=== PATIENT | male | born 1940 | race Two or more races ===

== ENCOUNTER 2017-04-09 10:30 | Day surgery (SDC) | payer MEDICARE ==
[~2017-04-09 10:30] MED LIST: ALBU90OI INH; ATEN25 PO; Atrovent Inha12.9 GM INH; CLOBETTC TP; CODACE30; CODACE60; COMBIVENT RESPIM4 GM; CREON DR 12,001 EACH PO; DESO.25TO TOP; DHE PO; DHE SQ; DICMIS75EC; DICMIS75EC PO; DIHYDROERGOTAMINE; DIPASPER; DONE10 PO; DONE5 PO; DOXE150; DOXE150 PO; DOXE50 PO; Doxepin HCl100 MG PO; FENO145 PO; FENO160 PO; FLUO20 PO; FURO40 PO; GABA300 PO; HYDACE10 PO; HYDACE10B PO; HYDACE5325 PO; LANS30EC PO; LEVFLO500 PO; LOPE2C PO; Loperamide2 MG PO; MAGOXI400; METO2.5 PO; MICRO-K PO; MIRAPEX ER1.5 MG PO; MODA200 PO; MULVITMINF PO; Mirapex0.75 MG PO; NITR.4SL SL; OLAN7.5 PO; OMEP20ER PO; POTA10T PO; PRAM.5 PO; PROAIR RESPICL90 MCG; PROZAC; Prednisone50 MG PO; Primalev 5-3001 EACH PO; RAPAFLO PO; RXHYD5325 PO; SIMV40; SIMV40 PO; TESTTP; TIZA4 PO; TIZANIDINE HCL4 MG PO; TORSE20 PO; TRAZ150T57 PO; TRICOR; VERAPAMIL; Voltaren100 GM; WARF5 PO; WARF6 PO; WARF7.5 PO; ZANAFLEX; ZOCOR; Zithromax250 MG PO
== END 2017-04-09 22:40 | disposition home or self-care (01) ==
LOC: WOUND 10:30
PROC: 0JBN0ZZ Excision of Right Lower Leg Subcutaneous Tissue and Fascia, Open Approach (ICD-10-PCS; principal; 2017-04-09)
PROC: 0HRKXK3 Replacement of Right Lower Leg Skin with Nonautologous Tissue Substitute, Full Thickness, External Approach (ICD-10-PCS; principal; 2017-04-09)
DX: Z48.00 Encounter for change or removal of nonsurgical wound dressing (principal); E11.622 Type 2 diabetes mellitus with other skin ulcer; L97.912 Non-pressure chronic ulcer of unspecified part of right lower leg with fat layer exposed; I87.2 Venous insufficiency (chronic) (peripheral); I89.0 Lymphedema, not elsewhere classified; G20 Parkinson's disease; J44.9 Chronic obstructive pulmonary disease, unspecified; F31.9 Bipolar disorder, unspecified; G47.33 Obstructive sleep apnea (adult) (pediatric)
CPT/HCPCS: G0463; Q4131

== ENCOUNTER 2017-05-07 10:27 | Day surgery (SDC) | payer MEDICARE | END 2017-05-07 22:47 | disposition home or self-care (01) | LOC: WOUND 10:27 | PROC: 0HBKXZZ Excision of Right Lower Leg Skin, External Approach (ICD-10-PCS; principal; 2017-05-07) | DX: Z48.00 Encounter for change or removal of nonsurgical wound dressing (principal); L97.912 Non-pressure chronic ulcer of unspecified part of right lower leg with fat layer exposed; I87.2 Venous insufficiency (chronic) (peripheral); I89.0 Lymphedema, not elsewhere classified | CPT/HCPCS: G0463 ==

== ENCOUNTER 2017-05-21 10:30 | Day surgery (SDC) | payer MEDICARE | END 2017-05-21 16:53 | disposition home or self-care (01) | LOC: WOUND 10:30 | DX: Z48.00 Encounter for change or removal of nonsurgical wound dressing (principal); L97.912 Non-pressure chronic ulcer of unspecified part of right lower leg with fat layer exposed; I87.2 Venous insufficiency (chronic) (peripheral); I89.0 Lymphedema, not elsewhere classified | CPT/HCPCS: 87081; G0463 ==

== ENCOUNTER 2017-05-28 10:40 | Day surgery (SDC) | payer MEDICARE | END 2017-05-28 12:25 | disposition home or self-care (01) | LOC: WOUND 10:40 | DX: Z48.00 Encounter for change or removal of nonsurgical wound dressing (principal); L97.912 Non-pressure chronic ulcer of unspecified part of right lower leg with fat layer exposed; I87.2 Venous insufficiency (chronic) (peripheral); I89.0 Lymphedema, not elsewhere classified | CPT/HCPCS: G0463 ==

== ENCOUNTER 2017-06-04 10:40 | Day surgery (SDC) | payer MEDICARE | END 2017-06-04 11:44 | disposition home or self-care (01) | LOC: WOUND 10:40 | DX: Z48.00 Encounter for change or removal of nonsurgical wound dressing (principal); L97.912 Non-pressure chronic ulcer of unspecified part of right lower leg with fat layer exposed; I87.2 Venous insufficiency (chronic) (peripheral); I89.0 Lymphedema, not elsewhere classified; G20 Parkinson's disease; Z86.718 Personal history of other venous thrombosis and embolism; F31.9 Bipolar disorder, unspecified | CPT/HCPCS: 36416; 85610; G0463 ==

== ENCOUNTER 2017-06-09 14:51 | Emergency (ER) | payer MEDICARE ==
[~2017-06-09] VITALS: Ht 167.6 cm; Wt 108.9 kg
[2017-06-09] MEDS ORDERED: ALBU3IS INH (15:35)
[2017-06-09] MEDS ORDERED: Prinivil10 MG PO (15:36)
[2017-06-09] MEDS ORDERED: METF500 PO ×2 (15:36→15:53)
[2017-06-09] MEDS ORDERED: SPIR25 PO (15:37)
[2017-06-09] MEDS ORDERED: COLCHICINE0.6 MG PO (15:47)
[2017-06-09] MEDS ORDERED: POTCHL20ER PO (15:47)
[2017-06-09] MEDS ORDERED: ATOR20 PO (15:48)
[2017-06-09] MEDS ORDERED: GABA300T24 (15:48)
[2017-06-09] MEDS ORDERED: PRAM.125 PO (15:48)
[2017-06-09] MEDS ORDERED: DOXE50 PO (15:49)
[2017-06-09] MEDS ORDERED: METO50ER PO (15:49)
[2017-06-09] MEDS ORDERED: FURO80 PO (15:49)
[2017-06-09] MEDS ORDERED: METO2.5 PO (15:53)
[2017-06-09] MEDS ORDERED: Voltaren100 GM TOP (15:54)
[2017-06-09] MEDS ORDERED: OXYC1TAB11 PO (15:54)
[2017-06-09] MEDS ORDERED: VITAMIN C500 M1 PO (15:55)
[2017-06-09] MEDS ORDERED: WARF5 PO (15:55)
[2017-06-09] MEDS ORDERED: Hair, Skin & N1 EACH PO (15:55)
[2017-06-09] MEDS ORDERED: VITAMIN D31000 UNIT PO (15:56)
[2017-06-09 20:56] LABS: Hematocrit 38.2 % (37.0-53.0); Hemoglobin 12.6 g/dL (13.5-17.5); Mean Corpuscular HGB 30.1 pg (26.0-34.0); Mean Corpuscular Volume 91 fL (80-100); Mean Platelet Volume 10.5 fL (9.1-12.4); Platelet Count 256 K/mm3 (150-400); RDW Coefficient Variation 14.3 % (11.7-14.2); RDW Standard Deviation 48.1 fL (35.1-46.3); Red Blood Cell Count 4.19 M/mm3 (4.30-5.90); White Blood Cell Count 7.51 K/mm3 (4.00-11.30)
[2017-06-09 21:08] LABS: International Normalized Ratio 1.72; Prothrombin Time Results 18.2 Sec (9.7-11.5)
[2017-06-09 21:10] LABS: Bun/Creatinine Ratio 27.1 (12.0-20.0); Calcium, Blood 8.6 mg/dL (8.5-10.1); Creatinine, Blood 1.7 mg/dL (0.60-1.20); Potassium, Blood 4.5 mmol/L (3.5-5.5)
== END 2017-06-09 21:20 | disposition short-term general hospital (02) ==
LOC: ER 14:51
PROVIDERS: Emergency Medicine
DX: G83.4 Cauda equina syndrome (principal); M48.07 Spinal stenosis, lumbosacral region; I10 Essential (primary) hypertension; F32.9 Major depressive disorder, single episode, unspecified; E78.5 Hyperlipidemia, unspecified; Z86.711 Personal history of pulmonary embolism; Z86.718 Personal history of other venous thrombosis and embolism; Z86.73 Personal history of transient ischemic attack (TIA), and cerebral infarction without residual deficits; Z87.891 Personal history of nicotine dependence
CPT/HCPCS: 72148; 80048; 85027; 85610; 96374; 96375; 96376; 99285; J1100; J1170; J2405; J3430

== ENCOUNTER 2017-06-25 12:33 | Emergency (ER) | payer MEDICARE ==
[~2017-06-25] VITALS: Ht 167.6 cm; Wt 111.1 kg
[~2017-06-25 12:33] MED LIST changes: +ALBU3IS INH; +ATOR20 PO; +COLCHICINE0.6 MG PO; +FURO80 PO; +GABA300T24; +Hair, Skin & N1 EACH PO; +METF500 PO; +METO50ER PO; +OXYC1TAB11 PO; +POTCHL20ER PO; +PRAM.125 PO; +Prinivil10 MG PO; +SPIR25 PO; +VITAMIN C500 M1 PO; +VITAMIN D31000 UNIT PO; +Voltaren100 GM TOP
[2017-06-25 15:19] LABS: BASOPHILS ABSOLUTE AUTO 0.04 K/mm3 (0.00-0.23); BASOPHILS PERCENT AUTO 1 % (0-2); EOSINOPHILS ABSOLUTE AUTO 0.55 K/mm3 (0.00-0.68); EOSINOPHILS PERCENT AUTO 7 % (0-6); Hematocrit 34.5 % (37.0-53.0); Hemoglobin 11.3 g/dL (13.5-17.5); IMMATURE GRAN ABSOLUTE AUTO 0.06 K/mm3 (0.00-0.10); IMMATURE GRAN PERCENT AUTO 1 % (0-1); LYMPHOCYTES ABSOLUTE AUTO 1.63 K/mm3 (0.84-5.20); LYMPHOCYTES PERCENT AUTO 19 % (21-46); MONOCYTES ABSOLUTE AUTO 0.65 K/mm3 (0.16-1.47); MONOCYTES PERCENT AUTO 8 % (4-13); Mean Corpuscular HGB 29.7 pg (26.0-34.0); Mean Corpuscular HGB Conc 32.8 g/dL (31.5-36.5); Mean Corpuscular Volume 91 fL (80-100); NEUTROPHILS ABSOLUTE AUTO 5.52 K/mm3 (1.96-9.15); NEUTROPHILS PERCENT AUTO 65 % (41-73); Platelet Count 265 K/mm3 (150-400); RDW Coefficient Variation 14.3 % (11.7-14.2); RDW Standard Deviation 47.5 fL (35.1-46.3); Red Blood Cell Count 3.81 M/mm3 (4.30-5.90); White Blood Cell Count 8.45 K/mm3 (4.00-11.30)
[2017-06-25 15:40] LABS: Albumin, Blood 3.7 g/dL (3.4-5.0); Albumin/Globulin Ratio 0.8 (0.8-1.8); Bilirubin, Total 0.5 mg/dL (0.1-1.0); Bun/Creatinine Ratio 25.1 (12.0-20.0); Calcium, Blood 8.7 mg/dL (8.5-10.1); Creatinine, Blood 1.71 mg/dL (0.60-1.20); Globulin, Blood 4.4 g/dL (2.2-4.0); Potassium, Blood 4.2 mmol/L (3.5-5.5); Total Protein, Blood 8.1 g/dL (6.4-8.2)
[2017-06-25] MEDS ORDERED: METPRE4DP PO (17:06)
[2017-06-25] MEDS ORDERED: Robaxin500 MG PO (17:06)
== END 2017-06-25 17:30 | disposition home or self-care (01) ==
LOC: ER 12:33
PROVIDERS: Physician Assistant
DX: G89.18 Other acute postprocedural pain (principal); M54.5 Low back pain; Z88.8 Allergy status to other drugs, medicaments and biological substances; Z88.0 Allergy status to penicillin; Z79.899 Other long term (current) drug therapy; Z79.84 Long term (current) use of oral hypoglycemic drugs; Z79.01 Long term (current) use of anticoagulants; F32.9 Major depressive disorder, single episode, unspecified; G20 Parkinson's disease; F31.9 Bipolar disorder, unspecified; E78.5 Hyperlipidemia, unspecified; Z86.73 Personal history of transient ischemic attack (TIA), and cerebral infarction without residual deficits; G43.909 Migraine, unspecified, not intractable, without status migrainosus
CPT/HCPCS: 36415; 72148; 80053; 85025; 96374; 96375; 99284; J1170; J2405

== ENCOUNTER → 2017-07-27 | Outpatient (CLI) | payer MEDICARE ==
[~2017-07-27] MED LIST changes: +ELIQUIS2.5 MG PO; +FAMO20 PO; +Ipratr-Albuterol3 ML INH; +METPRE4DP PO; +Omeprazole20 M1; +PRED10 PO; +PRED5 PO; +Robaxin500 MG PO; +[UNRECOGNIZED DRUG - OTHER] PO
[2017-07-28 21:58] LABS: Adenovirus F 40/41 Not Detected (NOT DETECT); Astrovirus Not Detected (NOT DETECT); Campylobacter Sp Not Detected (NOT DETECT); Cryptosporidium Not Detected (NOT DETECT); Cyclospora Cayetanensis Not Detected (NOT DETECT); E. Coli O157 Not Detected (NOT DETECT); Entamoeba Histolytica Not Detected (NOT DETECT); Enteroaggregative E. coli-EAEC Not Detected (NOT DETECT); Enteropathogenic E. coli-EPEC Not Detected (NOT DETECT); Enterotoxigenic E. coli-ETEC Not Detected (NOT DETECT); Giardia Lamblia Not Detected (NOT DETECT); Norovirus GI/GII Not Detected (NOT DETECT); Plesiomonas Shigelloides Not Detected (NOT DETECT); Rotavirus A Not Detected (NOT DETECT); Salmonella Sp Not Detected (NOT DETECT); Sapovirus Not Detected (NOT DETECT); Shiga Toxin-prod E. coli-STEC Not Detected (NOT DETECT); Shigella/Enteroin E. coli-EIEC Not Detected (NOT DETECT); Vibrio Cholerae Not Detected (NOT DETECT); Vibrio Sp Not Detected (NOT DETECT); Yersinia Enterocolitica Not Detected (NOT DETECT)
== END ==
LOC: LAB EV 23:15
PROVIDERS: Family Medicine
DX: R19.7 Diarrhea, unspecified (principal)
CPT/HCPCS: 87507

== ENCOUNTER 2017-08-26 20:44 | Emergency (ER) | payer MEDICARE ==
[~2017-08-26] VITALS: Ht 170.2 cm; Wt 108.9 kg
[~2017-08-26 20:44] MED LIST changes: -ELIQUIS2.5 MG PO; -FAMO20 PO; -Ipratr-Albuterol3 ML INH; -Omeprazole20 M1; -PRED10 PO; -PRED5 PO; -[UNRECOGNIZED DRUG - OTHER] PO
[2017-08-26] MEDS ORDERED: [UNRECOGNIZED DRUG - OTHER] PO (20:58)
[2017-08-26] MEDS ORDERED: METPRE4DP PO (21:05)
== END 2017-08-26 21:25 | disposition home or self-care (01) ==
LOC: ER 20:44
DX: M10.9 Gout, unspecified (principal); Z88.0 Allergy status to penicillin; Z88.8 Allergy status to other drugs, medicaments and biological substances; Z79.899 Other long term (current) drug therapy; Z79.84 Long term (current) use of oral hypoglycemic drugs; Z79.891 Long term (current) use of opiate analgesic; Z79.01 Long term (current) use of anticoagulants; Z86.73 Personal history of transient ischemic attack (TIA), and cerebral infarction without residual deficits; F32.9 Major depressive disorder, single episode, unspecified; F31.9 Bipolar disorder, unspecified; E78.5 Hyperlipidemia, unspecified; G20 Parkinson's disease
CPT/HCPCS: 96372; 99283; J1170

== ENCOUNTER 2017-09-17 13:25 | Emergency (ER) | payer MEDICARE ==
[~2017-09-17] VITALS: Ht 167.6 cm; Wt 104.3 kg
[~2017-09-17 13:25] MED LIST changes: +[UNRECOGNIZED DRUG - OTHER] PO
[2017-09-17] MEDS ORDERED: ELIQUIS2.5 MG PO (14:39)
[2017-09-17] MEDS ORDERED: PRED5 PO (14:40)
[2017-09-17] MEDS ORDERED: POTCHL20ER PO (14:40)
[2017-09-17] MEDS ORDERED: Omeprazole20 M1 (14:41)
[2017-09-17 14:53] LABS: BASOPHILS ABSOLUTE AUTO 0.03 K/mm3 (0.00-0.23); BASOPHILS PERCENT AUTO 0 % (0-2); EOSINOPHILS ABSOLUTE AUTO 0.22 K/mm3 (0.00-0.68); EOSINOPHILS PERCENT AUTO 3 % (0-6); Hemoglobin 11.1 g/dL (13.5-17.5); IMMATURE GRAN ABSOLUTE AUTO 0.02 K/mm3 (0.00-0.10); IMMATURE GRAN PERCENT AUTO 0 % (0-1); LYMPHOCYTES ABSOLUTE AUTO 1.54 K/mm3 (0.84-5.20); LYMPHOCYTES PERCENT AUTO 20 % (21-46); MONOCYTES ABSOLUTE AUTO 0.67 K/mm3 (0.16-1.47); MONOCYTES PERCENT AUTO 9 % (4-13); Mean Corpuscular HGB 29.1 pg (26.0-34.0); Mean Corpuscular HGB Conc 31.7 g/dL (31.5-36.5); Mean Corpuscular Volume 92 fL (80-100); Mean Platelet Volume 10.1 fL (9.1-12.4); NEUTROPHILS ABSOLUTE AUTO 5.22 K/mm3 (1.96-9.15); NEUTROPHILS PERCENT AUTO 68 % (41-73); Platelet Count 266 K/mm3 (150-400); RDW Coefficient Variation 15.6 % (11.7-14.2); RDW Standard Deviation 52.1 fL (35.1-46.3); Red Blood Cell Count 3.81 M/mm3 (4.30-5.90)
[2017-09-17 15:10] LABS: Albumin, Blood 3.3 g/dL (3.4-5.0); Albumin/Globulin Ratio 0.8 (0.8-1.8); Bilirubin, Total 0.3 mg/dL (0.1-1.0); Bun/Creatinine Ratio 25.8 (12.0-20.0); Calcium, Blood 9.5 mg/dL (8.5-10.1); Creatinine, Blood 2.17 mg/dL (0.60-1.20); Globulin, Blood 4.4 g/dL (2.2-4.0); Magnesium, Blood 2.5 mg/dL (1.6-2.4); Phosphorus, Blood 3.1 mg/dL (2.5-4.9); Potassium, Blood 4.6 mmol/L (3.5-5.5); Total Protein, Blood 7.7 g/dL (6.4-8.2)
[2017-09-17 15:17] LABS: Source, Urine Clean Catch
[2017-09-17 15:20] LABS: Appearance, Urine Clear (Clear); Bilirubin, Urine Neg (Neg); Blood, Urine Neg (Neg); Color, Urine Yellow (P-Yellow); Glucose Qualitative, Urine Neg (Neg); Ketones, Urine Neg (Neg); Leukocyte Esterase, Urine Neg (Neg); Nitrite, Urine Neg (Neg); Protein, Urine Neg (Neg); Specific Gravity, Urine 1.005 (1.003-1.022); Urobilinogen, Urine NORM (Normal)
== END 2017-09-17 16:13 | disposition home or self-care (01) ==
LOC: ER 13:25
PROVIDERS: Emergency Medicine
DX: R79.9 Abnormal finding of blood chemistry, unspecified (principal); N28.9 Disorder of kidney and ureter, unspecified; F32.9 Major depressive disorder, single episode, unspecified; E78.5 Hyperlipidemia, unspecified; G43.909 Migraine, unspecified, not intractable, without status migrainosus; I10 Essential (primary) hypertension; Z87.891 Personal history of nicotine dependence
CPT/HCPCS: 36415; 71045; 80053; 81003; 83735; 84100; 85025; 93005; 93010; 99283

== ENCOUNTER 2017-09-30 17:11 | Observation (INO) | payer MEDICARE ==
[~2017-09-30] VITALS: Ht 167.6 cm; Wt 105.8 kg
[~2017-09-30 17:11] MED LIST changes: +ELIQUIS2.5 MG PO; +Omeprazole20 M1; +PRED5 PO
[2017-09-30 17:54] LABS: BASOPHILS ABSOLUTE AUTO 0.03 K/mm3 (0.00-0.23); BASOPHILS PERCENT AUTO 0 % (0-2); EOSINOPHILS ABSOLUTE AUTO 0.02 K/mm3 (0.00-0.68); EOSINOPHILS PERCENT AUTO 0 % (0-6); Hematocrit 31.2 % (37.0-53.0); Hemoglobin 9.9 g/dL (13.5-17.5); IMMATURE GRAN ABSOLUTE AUTO 0.11 K/mm3 (0.00-0.10); IMMATURE GRAN PERCENT AUTO 1 % (0-1); LYMPHOCYTES PERCENT AUTO 13 % (21-46); MONOCYTES ABSOLUTE AUTO 0.98 K/mm3 (0.16-1.47); MONOCYTES PERCENT AUTO 10 % (4-13); Mean Corpuscular HGB 28.3 pg (26.0-34.0); Mean Corpuscular HGB Conc 31.7 g/dL (31.5-36.5); NEUTROPHILS ABSOLUTE AUTO 7.33 K/mm3 (1.96-9.15); NEUTROPHILS PERCENT AUTO 75 % (41-73); Platelet Count 213 K/mm3 (150-400); RDW Coefficient Variation 16.7 % (11.7-14.2); RDW Standard Deviation 54.2 fL (35.1-46.3); White Blood Cell Count 9.77 K/mm3 (4.00-11.30)
[2017-09-30 18:03] LABS: Mean Corpuscular Volume 89 fL (80-100)
[2017-09-30 18:06] LABS: International Normalized Ratio 1.17; Prothrombin Time Results 12.2 Sec (9.7-11.5)
[2017-09-30 18:14] LABS: Alanine Aminotransfer (ALT/SGP 21 U/L (12-78); Albumin, Blood 2.9 g/dL (3.4-5.0); Albumin/Globulin Ratio 0.8 (0.8-1.8); Alk Phos 70 U/L (50-136); Anion Gap 9 mmol/L (6-16); Aspartate Aminotrans (AST/SGOT 20 U/L (12-37); Bilirubin, Total 0.6 mg/dL (0.1-1.0); Blood Urea Nitrogen 22 mg/dL (8-24); CO2, Blood 23 mmol/L (21-32); Calcium, Blood 8.1 mg/dL (8.5-10.1); Chloride, Blood 106 mmol/L (98-108); Globulin, Blood 3.7 g/dL (2.2-4.0); Glomerular Filtration Rate >60 (60-); Glucose, Blood 132 mg/dL (70-99); Potassium, Blood 3.8 mmol/L (3.5-5.5); Sodium, Blood 138 mmol/L (136-145); Total Protein, Blood 6.6 g/dL (6.4-8.2); Troponin I 0.019 ng/mL (0.000-0.040)
[2017-09-30 20:29] LABS: Source, Urine Catheter
[2017-09-30 20:32] LABS: Appearance, Urine Clear (Clear); Bilirubin, Urine Neg (Neg); Blood, Urine 1+ (Neg); Color, Urine Yellow (P-Yellow); Glucose Qualitative, Urine 2+ (Neg); Ketones, Urine Neg (Neg); Leukocyte Esterase, Urine 1+ (Neg); Nitrite, Urine Neg (Neg); Protein, Urine 2+ (Neg); Specific Gravity, Urine 1.015 (1.003-1.022); Urobilinogen, Urine NORM (Normal)
[2017-09-30 20:43] LABS: Bacteria Mod /hpf; Red Blood Cells, Urine 0-2 /hpf (0-2); Squamous Epithelial Cells Few /hpf (Few)
[2017-10-01 00:13] LABS: CPK Creatine Kinase 451 U/L (39-308)
[2017-10-01 00:31] LABS: Creatine Kinase MB 6.1 ng/mL (0.0-3.6); Creatine Kinase MB Index 1.4 (0.0-4.0)
[2017-10-01 01:00] LABS: BASOPHILS ABSOLUTE AUTO 0.01 K/mm3 (0.00-0.23); BASOPHILS PERCENT AUTO 0 % (0-2); EOSINOPHILS ABSOLUTE AUTO 0.01 K/mm3 (0.00-0.68); EOSINOPHILS PERCENT AUTO 0 % (0-6); Hematocrit 29.5 % (37.0-53.0); Hemoglobin 9.4 g/dL (13.5-17.5); IMMATURE GRAN ABSOLUTE AUTO 0.06 K/mm3 (0.00-0.10); IMMATURE GRAN PERCENT AUTO 1 % (0-1); LYMPHOCYTES ABSOLUTE AUTO 1.23 K/mm3 (0.84-5.20); LYMPHOCYTES PERCENT AUTO 13 % (21-46); MONOCYTES PERCENT AUTO 9 % (4-13); Mean Corpuscular HGB 28.4 pg (26.0-34.0); Mean Corpuscular HGB Conc 31.9 g/dL (31.5-36.5); Mean Corpuscular Volume 89 fL (80-100); Mean Platelet Volume 9.8 fL (9.1-12.4); NEUTROPHILS PERCENT AUTO 77 % (41-73); Platelet Count 193 K/mm3 (150-400); RDW Coefficient Variation 16.5 % (11.7-14.2); RDW Standard Deviation 54.2 fL (35.1-46.3); Red Blood Cell Count 3.31 M/mm3 (4.30-5.90); White Blood Cell Count 9.71 K/mm3 (4.00-11.30)
[2017-10-01 01:11] LABS: Alanine Aminotransfer (ALT/SGP 18 U/L (12-78); Albumin, Blood 2.5 g/dL (3.4-5.0); Albumin/Globulin Ratio 0.7 (0.8-1.8); Alk Phos 60 U/L (50-136); Anion Gap 13 mmol/L (6-16); Aspartate Aminotrans (AST/SGOT 24 U/L (12-37); Bilirubin, Total 0.6 mg/dL (0.1-1.0); Blood Urea Nitrogen 15 mg/dL (8-24); Bun/Creatinine Ratio 17.9 (12.0-20.0); CO2, Blood 19 mmol/L (21-32); Calcium, Blood 7.9 mg/dL (8.5-10.1); Chloride, Blood 107 mmol/L (98-108); Creatinine, Blood 0.84 mg/dL (0.60-1.20); Globulin, Blood 3.6 g/dL (2.2-4.0); Glomerular Filtration Rate >60 (60-); Glucose, Blood 98 mg/dL (70-99); Potassium, Blood 3.6 mmol/L (3.5-5.5); Sodium, Blood 139 mmol/L (136-145); Total Protein, Blood 6.1 g/dL (6.4-8.2)
[2017-10-01] MEDS ORDERED: PRED10 PO (01:12)
[2017-10-01] MEDS ORDERED: FAMO20 PO (01:13)
[2017-10-01] MEDS ORDERED: ALBU90OI INH (01:14)
[2017-10-01] MEDS ORDERED: Ipratr-Albuterol3 ML INH (01:15)
[2017-10-01] MEDS ORDERED: [UNRECOGNIZED DRUG - OTHER] PO (01:17)
[2017-10-01] MEDS ORDERED: ATOR20 PO (01:18)
[2017-10-01] MEDS ORDERED: ELIQUIS2.5 MG PO (02:48)
[2017-10-01] MEDS ORDERED: GABA300 PO (05:09)
[2017-10-01 15:59] LABS: Influenza A Negative (NEGATIVE); Influenza B Negative (NEGATIVE)
[2017-10-02 05:06] LABS: BASOPHILS ABSOLUTE AUTO 0.01 K/mm3 (0.00-0.23); BASOPHILS PERCENT AUTO 0 % (0-2); EOSINOPHILS ABSOLUTE AUTO 0.01 K/mm3 (0.00-0.68); EOSINOPHILS PERCENT AUTO 0 % (0-6); Hematocrit 30.2 % (37.0-53.0); Hemoglobin 9.8 g/dL (13.5-17.5); IMMATURE GRAN ABSOLUTE AUTO 0.03 K/mm3 (0.00-0.10); IMMATURE GRAN PERCENT AUTO 1 % (0-1); LYMPHOCYTES ABSOLUTE AUTO 0.64 K/mm3 (0.84-5.20); LYMPHOCYTES PERCENT AUTO 12 % (21-46); MONOCYTES ABSOLUTE AUTO 0.31 K/mm3 (0.16-1.47); MONOCYTES PERCENT AUTO 6 % (4-13); Mean Corpuscular HGB 28.7 pg (26.0-34.0); Mean Corpuscular HGB Conc 32.5 g/dL (31.5-36.5); Mean Corpuscular Volume 88 fL (80-100); NEUTROPHILS ABSOLUTE AUTO 4.56 K/mm3 (1.96-9.15); NEUTROPHILS PERCENT AUTO 82 % (41-73); Platelet Count 166 K/mm3 (150-400); RDW Coefficient Variation 16.6 % (11.7-14.2); RDW Standard Deviation 53.6 fL (35.1-46.3); Red Blood Cell Count 3.42 M/mm3 (4.30-5.90); White Blood Cell Count 5.56 K/mm3 (4.00-11.30)
== END 2017-10-03 12:32 | disposition home or self-care (01) ==
LOC: ER 17:11 → MEDS 17:12 → ER 22:08 → MEDS 22:35
PROVIDERS: Emergency Medicine; Internal Medicine; Student in an Organized Health Care Education/Training Program
DX: T67.5XXA Heat exhaustion, unspecified, initial encounter (principal); E86.0 Dehydration; E87.6 Hypokalemia; G93.41 Metabolic encephalopathy; F32.9 Major depressive disorder, single episode, unspecified; G20 Parkinson's disease; G43.909 Migraine, unspecified, not intractable, without status migrainosus; E78.5 Hyperlipidemia, unspecified; I87.2 Venous insufficiency (chronic) (peripheral); G47.30 Sleep apnea, unspecified; N40.0 Benign prostatic hyperplasia without lower urinary tract symptoms; I10 Essential (primary) hypertension; M19.90 Unspecified osteoarthritis, unspecified site; Z86.73 Personal history of transient ischemic attack (TIA), and cerebral infarction without residual deficits; Z79.52 Long term (current) use of systemic steroids; Z86.718 Personal history of other venous thrombosis and embolism; Z79.01 Long term (current) use of anticoagulants; Z79.899 Other long term (current) drug therapy; Z79.84 Long term (current) use of oral hypoglycemic drugs; Z88.0 Allergy status to penicillin; Z88.1 Allergy status to other antibiotic agents; Z88.8 Allergy status to other drugs, medicaments and biological substances; X30.XXXA Exposure to excessive natural heat, initial encounter; Y99.0 Civilian activity done for income or pay
CPT/HCPCS: 36415; 71046; 80053; 81001; 82550; 82553; 82947; 83605; 84145; 84484; 85025; 85610; 85730; 87040; 87081; 87086; 87804; 93005; 93010; 94760; 96360; 96361; 96365; 96366; 96375; 97116; 97161; 97530; 99285; G0378; G8978; G8979; G8980; J1956; J2001; J2405; J3480; J7030; J7050

== ENCOUNTER → 2017-10-16 | Outpatient (CLI) | payer MEDICARE ==
[~2017-10-16] MED LIST changes: +FAMO20 PO; +Ipratr-Albuterol3 ML INH; +PRED10 PO
[2017-10-18 12:57] LABS: Stool Occult Bld Immuno 1 Negative (NEGATIVE); Stool Occult Bld Immuno 2 Negative (NEGATIVE); Stool Occult Bld Immuno 3 Negative (NEGATIVE)
== END | disposition home or self-care (01) ==
LOC: LAB SHORT 14:00 → LAB EV 14:00
PROVIDERS: Physician Assistant
DX: D64.9 Anemia, unspecified (principal)
CPT/HCPCS: 82274

== ENCOUNTER → 2017-10-26 | Outpatient (CLI) | payer MEDICARE ==
[2017-10-26 19:03] LABS: Albumin, Blood 3.4 g/dL (3.4-5.0); Anion Gap 6 mmol/L (6-16); Blood Urea Nitrogen 15 mg/dL (8-24); Bun/Creatinine Ratio 16.1 (12.0-20.0); CO2, Blood 31 mmol/L (21-32); Chloride, Blood 107 mmol/L (98-108); Creatinine, Blood 0.93 mg/dL (0.60-1.20); Glomerular Filtration Rate >60 (60-); Glucose, Blood 90 mg/dL (70-99); Phosphorus, Blood 3.6 mg/dL (2.5-4.9); Potassium, Blood 3.7 mmol/L (3.5-5.5); Sodium, Blood 144 mmol/L (136-145); Uric Acid, Blood 8.3 mg/dL (3.5-7.2)
[2017-10-26 20:12] LABS: Percent Saturation 14.5 % (20.0-50.0)
== END ==
LOC: LAB SHORT 18:40 → LAB EV 18:40
PROVIDERS: Internal Medicine Nephrology
DX: N18.2 Chronic kidney disease, stage 2 (mild) (principal); D63.1 Anemia in chronic kidney disease; N25.81 Secondary hyperparathyroidism of renal origin; E55.9 Vitamin D deficiency, unspecified; E78.00 Pure hypercholesterolemia, unspecified; D51.8 Other vitamin B12 deficiency anemias; D52.8 Other folate deficiency anemias; D50.9 Iron deficiency anemia, unspecified
CPT/HCPCS: 36415; 80069; 82607; 82728; 82746; 83540; 83550; 84550; 85018

== ENCOUNTER 2018-05-28 21:27 | Emergency (ER) | payer OTHER ==
[~2018-05-28] VITALS: Ht 170.2 cm; Wt 106.6 kg
[2018-05-28] MEDS ORDERED: OMEPRAZOLE MAGN20 MG PO (21:41)
[2018-05-28] MEDS ORDERED: METO2.5 PO (21:42)
[2018-05-28] MEDS ORDERED: SPIR25 PO (21:42)
[2018-05-28] MEDS ORDERED: ALLO100 PO (21:43)
== END 2018-05-28 23:29 | disposition home or self-care (01) ==
LOC: ER 21:27
DX: S39.012A Strain of muscle, fascia and tendon of lower back, initial encounter (principal); X58.XXXA Exposure to other specified factors, initial encounter; Z88.0 Allergy status to penicillin; Z88.8 Allergy status to other drugs, medicaments and biological substances; Z79.899 Other long term (current) drug therapy; Z79.52 Long term (current) use of systemic steroids; F32.9 Major depressive disorder, single episode, unspecified; G43.909 Migraine, unspecified, not intractable, without status migrainosus; F31.9 Bipolar disorder, unspecified; E78.5 Hyperlipidemia, unspecified
CPT/HCPCS: 72100; 99284-25

== ENCOUNTER → 2018-06-22 | Outpatient (CLI) | payer MEDICARE ==
[~2018-06-22] MED LIST changes: +ALLO100 PO; +OMEPRAZOLE MAGN20 MG PO
[2018-06-22 18:52] LABS: BASOPHILS ABSOLUTE AUTO 0.03 K/mm3 (0.00-0.23); BASOPHILS PERCENT AUTO 1 % (0-2); EOSINOPHILS ABSOLUTE AUTO 0.41 K/mm3 (0.00-0.68); EOSINOPHILS PERCENT AUTO 8 % (0-6); Hematocrit 36.1 % (37.0-53.0); Hemoglobin 12.2 g/dL (13.5-17.5); IMMATURE GRAN ABSOLUTE AUTO 0.01 K/mm3 (0.00-0.10); IMMATURE GRAN PERCENT AUTO 0 % (0-1); LYMPHOCYTES ABSOLUTE AUTO 1.58 K/mm3 (0.84-5.20); LYMPHOCYTES PERCENT AUTO 31 % (21-46); MONOCYTES ABSOLUTE AUTO 0.42 K/mm3 (0.16-1.47); MONOCYTES PERCENT AUTO 8 % (4-13); Mean Corpuscular HGB 30.1 pg (26.0-34.0); Mean Corpuscular HGB Conc 33.8 g/dL (31.5-36.5); Mean Corpuscular Volume 89 fL (80-100); Mean Platelet Volume 9.7 fL (9.1-12.4); NEUTROPHILS ABSOLUTE AUTO 2.59 K/mm3 (1.96-9.15); NEUTROPHILS PERCENT AUTO 52 % (41-73); Platelet Count 183 K/mm3 (150-400); RDW Coefficient Variation 13.5 % (11.7-14.2); RDW Standard Deviation 43.9 fL (35.1-46.3); Red Blood Cell Count 4.05 M/mm3 (4.30-5.90); White Blood Cell Count 5.04 K/mm3 (4.00-11.30)
[2018-06-22 19:42] LABS: Alanine Aminotransfer (ALT/SGP 31 U/L (12-78); Albumin, Blood 3.8 g/dL (3.4-5.0); Albumin/Globulin Ratio 1.2 (0.8-1.8); Alk Phos 106 U/L (50-136); Anion Gap 7 mmol/L (6-16); Aspartate Aminotrans (AST/SGOT 27 U/L (12-37); Bilirubin, Total 0.8 mg/dL (0.1-1.0); Blood Urea Nitrogen 19 mg/dL (8-24); CHOL/HDL RATIO 3.7; CO2, Blood 24 mmol/L (21-32); Calcium, Blood 8.6 mg/dL (8.5-10.1); Chloride, Blood 109 mmol/L (98-108); Cholesterol 152 mg/dL (50-200); Globulin, Blood 3.2 g/dL (2.2-4.0); Glucose, Blood 84 mg/dL (70-99); HDL Cholesterol 41 mg/dL (>39); LDL/HDL RATIO 1.7; Low Density Lipoprotein Chol 70 mg/dL (0-110); Potassium, Blood 3.6 mmol/L (3.5-5.5); Sodium, Blood 140 mmol/L (136-145); Triglycerides 203 mg/dL (30-160); Uric Acid, Blood 6.2 mg/dL (3.5-7.2); Very Low Density Lipoprot Chol 40 mg/dL (6-32)
[2018-06-22 19:46] LABS: Bun/Creatinine Ratio 23.9 (12.0-20.0); Glomerular Filtration Rate >60 (60-)
[2018-06-22 19:48] LABS: Albumin, Blood 3.7 g/dL (3.4-5.0); Anion Gap 7 mmol/L (6-16); Blood Urea Nitrogen 19 mg/dL (8-24); Bun/Creatinine Ratio 26.5 (12.0-20.0); CO2, Blood 25 mmol/L (21-32); Calcium, Blood 8.7 mg/dL (8.5-10.1); Chloride, Blood 109 mmol/L (98-108); Creatinine, Blood 0.72 mg/dL (0.60-1.20); Glomerular Filtration Rate >60 (60-); Glucose, Blood 85 mg/dL (70-99); Phosphorus, Blood 3.4 mg/dL (2.5-4.9); Potassium, Blood 3.8 mmol/L (3.5-5.5); Sodium, Blood 141 mmol/L (136-145)
== END | disposition home or self-care (01) ==
LOC: LAB EV 18:40 → LAB SHORT 18:40
PROVIDERS: Internal Medicine Nephrology; Physician Assistant
DX: E78.5 Hyperlipidemia, unspecified (principal); E11.22 Type 2 diabetes mellitus with diabetic chronic kidney disease; N18.3 Chronic kidney disease, stage 3 (moderate); D63.1 Anemia in chronic kidney disease; M10.9 Gout, unspecified
CPT/HCPCS: 36415; 80053; 80061; 80069; 83036; 83735; 84100; 84550; 85018; 85025

== ENCOUNTER 2018-07-14 14:41 | Emergency (ER) | payer MEDICARE ==
[~2018-07-14] VITALS: Ht 167.6 cm; Wt 104.3 kg
[2018-07-14 16:16] LABS: BASOPHILS ABSOLUTE AUTO 0.05 K/mm3 (0.00-0.23); BASOPHILS PERCENT AUTO 1 % (0-2); EOSINOPHILS PERCENT AUTO 9 % (0-6); IMMATURE GRAN ABSOLUTE AUTO 0.03 K/mm3 (0.00-0.10); IMMATURE GRAN PERCENT AUTO 0 % (0-1); LYMPHOCYTES PERCENT AUTO 26 % (21-46); MONOCYTES ABSOLUTE AUTO 0.58 K/mm3 (0.16-1.47); MONOCYTES PERCENT AUTO 8 % (4-13); Mean Corpuscular HGB 29.9 pg (26.0-34.0); Mean Corpuscular HGB Conc 32.6 g/dL (31.5-36.5); Mean Corpuscular Volume 92 fL (80-100); NEUTROPHILS PERCENT AUTO 56 % (41-73); Platelet Count 271 K/mm3 (150-400); RDW Coefficient Variation 13.4 % (11.7-14.2); RDW Standard Deviation 45.6 fL (35.1-46.3); Red Blood Cell Count 4.69 M/mm3 (4.30-5.90); White Blood Cell Count 7.66 K/mm3 (4.00-11.30)
[2018-07-14 16:30] LABS: Alanine Aminotransfer (ALT/SGP 31 U/L (12-78); Albumin, Blood 4.3 g/dL (3.4-5.0); Albumin/Globulin Ratio 1.1 (0.8-1.8); Alk Phos 135 U/L (50-136); Anion Gap 10 mmol/L (6-16); Aspartate Aminotrans (AST/SGOT 24 U/L (12-37); Bilirubin, Total 0.7 mg/dL (0.1-1.0); Blood Urea Nitrogen 23 mg/dL (8-24); CO2, Blood 27 mmol/L (21-32); Calcium, Blood 9.6 mg/dL (8.5-10.1); Chloride, Blood 104 mmol/L (98-108); Creatinine, Blood 0.85 mg/dL (0.60-1.20); Globulin, Blood 3.9 g/dL (2.2-4.0); Glomerular Filtration Rate >60 (60-); Glucose, Blood 114 mg/dL (70-99); Magnesium, Blood 2.3 mg/dL (1.6-2.4); Potassium, Blood 3.6 mmol/L (3.5-5.5); Sodium, Blood 141 mmol/L (136-145); Total Protein, Blood 8.2 g/dL (6.4-8.2); Troponin I <0.015 ng/mL (0.000-0.040)
[2018-07-14 16:39] LABS: Source, Urine Clean Catch
[2018-07-14 16:41] LABS: Bilirubin, Urine Neg (Neg); Blood, Urine Neg (Neg); Glucose Qualitative, Urine Neg (Neg); Ketones, Urine Neg (Neg); Leukocyte Esterase, Urine 2+ (Neg); Nitrite, Urine Neg (Neg); Protein, Urine Neg (Neg); Urobilinogen, Urine NORM (Normal); pH, Urine 6.5 (5.0-8.0)
[2018-07-14 16:47] LABS: Appearance, Urine Clear (Clear); Color, Urine Yellow (P-Yellow)
[2018-07-14 16:50] LABS: Red Blood Cells, Urine 0-2 /hpf (0-2)
[2018-07-14 16:51] LABS: Bacteria Few /hpf; Squamous Epithelial Cells Not Seen /hpf (Few); Transitional Epithelial Cells Rare /hpf (0-Rare)
[2018-07-14] MEDS ORDERED: GABA400 PO (18:48)
== END 2018-07-14 20:06 | disposition home or self-care (01) ==
LOC: ER 14:41
PROVIDERS: Physician Assistant
DX: M54.9 Dorsalgia, unspecified (principal); I10 Essential (primary) hypertension; F32.9 Major depressive disorder, single episode, unspecified; E78.5 Hyperlipidemia, unspecified; G47.33 Obstructive sleep apnea (adult) (pediatric); M19.90 Unspecified osteoarthritis, unspecified site; Z87.891 Personal history of nicotine dependence; Z79.899 Other long term (current) drug therapy; Z86.73 Personal history of transient ischemic attack (TIA), and cerebral infarction without residual deficits; Z86.711 Personal history of pulmonary embolism; Z86.718 Personal history of other venous thrombosis and embolism; Z79.02 Long term (current) use of antithrombotics/antiplatelets; Z79.52 Long term (current) use of systemic steroids
CPT/HCPCS: 36415; 71046; 80053; 81001; 83690; 83735; 83880; 84484; 85025; 87086; 93005; 93010; 99284-25

== ENCOUNTER → 2018-08-22 | Outpatient (CLI) | payer MEDICARE ==
[~2018-08-22] MED LIST changes: +GABA400 PO
== END ==
LOC: LAB SHORT 16:24 → LAB EV 16:24
DX: J02.9 Acute pharyngitis, unspecified (principal)
CPT/HCPCS: 87070

== ENCOUNTER → 2018-11-22 | Outpatient (CLI) | payer MEDICARE ==
[2018-11-22 12:57] LABS: Adenovirus F 40/41 Not Detected (NOT DETECT); Astrovirus Not Detected (NOT DETECT); Campylobacter Sp Not Detected (NOT DETECT); Cryptosporidium Not Detected (NOT DETECT); Cyclospora Cayetanensis Not Detected (NOT DETECT); E. Coli O157 Not Detected (NOT DETECT); Entamoeba Histolytica Not Detected (NOT DETECT); Enteroaggregative E. coli-EAEC Not Detected (NOT DETECT); Enteropathogenic E. coli-EPEC Not Detected (NOT DETECT); Enterotoxigenic E. coli-ETEC Not Detected (NOT DETECT); Giardia Lamblia Not Detected (NOT DETECT); Norovirus GI/GII Not Detected (NOT DETECT); Plesiomonas Shigelloides Not Detected (NOT DETECT); Rotavirus A Not Detected (NOT DETECT); Salmonella Sp Not Detected (NOT DETECT); Sapovirus Not Detected (NOT DETECT); Shiga Toxin-prod E. coli-STEC Not Detected (NOT DETECT); Shigella/Enteroin E. coli-EIEC Not Detected (NOT DETECT); Vibrio Cholerae Not Detected (NOT DETECT); Vibrio Sp Not Detected (NOT DETECT); Yersinia Enterocolitica Not Detected (NOT DETECT)
== END | disposition home or self-care (01) ==
LOC: LAB EV 11-20 09:00
PROVIDERS: Physician Assistant
DX: R19.7 Diarrhea, unspecified (principal)
CPT/HCPCS: 0097U

== ENCOUNTER 2019-07-27 16:18 | Inpatient (IN) | payer MEDICARE ==
[~2019-07-27] VITALS: Ht 167.6 cm; Wt 112.0 kg
[~2019-07-27 16:18] MED LIST changes: +ASCO500 PO; +Anti-Diarrheal2 MG PO; +B-121000 MC3 PO; +COMBIVENT RESPIM4 GM INH; +Duoneb 2.5-0.5 M3 ML INH; +LISI20 PO; +PERCOCET 10-321 EACH PO; -Prinivil10 MG PO; +Procrit40000 UNIT SC; +RAME8 PO; +VELTASSA8.4 GM PO; +VITAMIN D31000 UNI1 PO; +Ventolin/Prove6.7 GM PO; +ZOLP10 PO
[2019-07-27 16:58] LABS: BASOPHILS ABSOLUTE AUTO 0.03 K/mm3 (0.00-0.23); BASOPHILS PERCENT AUTO 0 % (0-2); EOSINOPHILS ABSOLUTE AUTO 0.25 K/mm3 (0.00-0.68); EOSINOPHILS PERCENT AUTO 3 % (0-6); Hematocrit 34.6 % (37.0-53.0); Hemoglobin 11.2 g/dL (13.5-17.5); IMMATURE GRAN ABSOLUTE AUTO 0.04 K/mm3 (0.00-0.10); IMMATURE GRAN PERCENT AUTO 0 % (0-1); LYMPHOCYTES ABSOLUTE AUTO 1.82 K/mm3 (0.84-5.20); LYMPHOCYTES PERCENT AUTO 20 % (21-46); MONOCYTES ABSOLUTE AUTO 0.88 K/mm3 (0.16-1.47); MONOCYTES PERCENT AUTO 10 % (4-13); Mean Corpuscular HGB 30.4 pg (26.0-34.0); Mean Corpuscular HGB Conc 32.4 g/dL (31.5-36.5); Mean Corpuscular Volume 94 fL (80-100); NEUTROPHILS ABSOLUTE AUTO 6.28 K/mm3 (1.96-9.15); NEUTROPHILS PERCENT AUTO 68 % (41-73); Platelet Count 301 K/mm3 (150-400); RDW Coefficient Variation 13.9 % (11.7-14.2); RDW Standard Deviation 48.6 fL (35.1-46.3); Red Blood Cell Count 3.68 M/mm3 (4.30-5.90)
[2019-07-27 17:40] LABS: Albumin, Blood 3.8 g/dL (3.4-5.0); Bilirubin, Total 0.4 mg/dL (0.1-1.0); Bun/Creatinine Ratio 28.1 (12.0-20.0); Calcium, Blood 8.8 mg/dL (8.5-10.1); Creatinine, Blood 4.84 mg/dL (0.60-1.20); Globulin, Blood 3.7 g/dL (2.2-4.0); Potassium, Blood 6.5 mmol/L (3.5-5.5); Total Protein, Blood 7.5 g/dL (6.4-8.2)
[2019-07-27] MEDS ORDERED: ELIQUIS2.5 MG PO (18:46)
[2019-07-27] MEDS ORDERED: FURO80 PO ×2 (18:47→19:48)
[2019-07-27] MEDS ORDERED: METO2.5 PO (18:49)
[2019-07-27] MEDS ORDERED: METO50ER PO (18:50)
[2019-07-27] MEDS ORDERED: PRAMIPEXOLE DI1.5 MG PO (18:51)
[2019-07-27] MEDS ORDERED: ATOR20 PO (18:54)
[2019-07-27] MEDS ORDERED: CREON DR 12,001 EACH PO (18:55)
[2019-07-27 18:56] LABS: Phosphorus, Blood 6.5 mg/dL (2.5-4.9); Troponin I <0.015 ng/mL (0.000-0.040)
[2019-07-27] MEDS ORDERED: FAMO20 PO (18:56)
[2019-07-27] MEDS ORDERED: Doxepin HCl100 MG PO (18:56)
[2019-07-27] MEDS ORDERED: ALLOPURINOL100 M1 PO (18:58)
[2019-07-27] MEDS ORDERED: SPIR25 PO (18:59)
[2019-07-27] MEDS ORDERED: LISI20 PO (18:59)
[2019-07-27] MEDS ORDERED: GABA400 PO (19:00)
[2019-07-27 19:54] LABS: Source, Urine Clean Catch
[2019-07-27 19:59] LABS: Bilirubin, Urine Neg (Neg); Blood, Urine 2+ (Neg); Glucose Qualitative, Urine Neg (Neg); Ketones, Urine Neg (Neg); Leukocyte Esterase, Urine 1+ (Neg); Nitrite, Urine Neg (Neg); Protein, Urine Neg (Neg); Urobilinogen, Urine NORM (Normal)
[2019-07-27 20:05] LABS: Appearance, Urine Clear (Clear); Color, Urine Pale Yellow (P-Yellow)
[2019-07-27 20:06] LABS: Bacteria Rare /hpf; Red Blood Cells, Urine Rare /hpf (0-2); Squamous Epithelial Cells Rare /hpf (Few)
--- NOTE | 2019-07-27 20:51 | NUR ---
transfer report from [facility] Major on ESRD PT currently not on HD per report being admitted with Hyperkalemia. Lives with Son who is at bedside. EVELIA not on CPAP 2 l o2 applied per report EVELIA not on CPAP. Await admission on Tele and Nephrology consult DR Ray PT . Reported 5.1 potassium level on repeat lab after tx of hyperkalemia
--- NOTE | 2019-07-27 21:41 | NUR ---
called DR Godfrey Cid to verify 2nd dose of tx for hyperkalemia ordered. AM lab BMP RX. Son at bedside helpful. PT voids large amt of clear yellow urine after 1 x 1 l liter.
--- NOTE | 2019-07-28 00:13 | NUR ---
DR Ray in to see PT see new orders, reviewed post void residual bladder scan. PT voids 650 after 236 post void residual check . wears oxygen humidified at HS 2 l and has bid nebulized albuterol baseline. orders obtained
[2019-07-28 05:20] LABS: BASOPHILS ABSOLUTE AUTO 0.02 K/mm3 (0.00-0.23); BASOPHILS PERCENT AUTO 0 % (0-2); EOSINOPHILS ABSOLUTE AUTO 0.31 K/mm3 (0.00-0.68); EOSINOPHILS PERCENT AUTO 4 % (0-6); Hemoglobin 10.3 g/dL (13.5-17.5); IMMATURE GRAN ABSOLUTE AUTO 0.02 K/mm3 (0.00-0.10); IMMATURE GRAN PERCENT AUTO 0 % (0-1); LYMPHOCYTES ABSOLUTE AUTO 1.87 K/mm3 (0.84-5.20); LYMPHOCYTES PERCENT AUTO 26 % (21-46); MONOCYTES ABSOLUTE AUTO 0.81 K/mm3 (0.16-1.47); MONOCYTES PERCENT AUTO 11 % (4-13); Mean Corpuscular HGB 30.7 pg (26.0-34.0); Mean Corpuscular HGB Conc 32.2 g/dL (31.5-36.5); Mean Corpuscular Volume 95 fL (80-100); Mean Platelet Volume 10.4 fL (9.1-12.4); NEUTROPHILS ABSOLUTE AUTO 4.09 K/mm3 (1.96-9.15); NEUTROPHILS PERCENT AUTO 57 % (41-73); Platelet Count 268 K/mm3 (150-400); RDW Standard Deviation 48.6 fL (35.1-46.3); Red Blood Cell Count 3.36 M/mm3 (4.30-5.90); White Blood Cell Count 7.12 K/mm3 (4.00-11.30)
--- NOTE | 2019-07-28 05:58 | NUR ---
pt ADMITTED WITH HYPERKALEMIA. ESRD NO ON DIALYSIS. HE HAD K RETURN TO NORMAL AFTER TX PER DR GUADALUPE. SON LIVES WITH PT ASSISTS WITH CARES. HE WEARS OXYGEN 2 L NC FOR EVELIA INTOLERANT OF CPAP. VOIDS LARGE AMT OF CLEAR YELLOW URINE. BLADDER SCAN PVR LESS THAN 250 ML. SKIN DRY AND PEELING. SKIN CARE TO BILAT LE AND ARMS WITH HELPFUL EFFECT. SUPPORT OFFERED FOR CURRENT ILLNESS. ON TELE WITH NSR MARISOL.
[2019-07-28 06:08] LABS: Albumin, Blood 3.3 g/dL (3.4-5.0); Anion Gap 10 mmol/L (6-16); Blood Urea Nitrogen 122 mg/dL (8-24); CO2, Blood 27 mmol/L (21-32); Calcium, Blood 8.4 mg/dL (8.5-10.1); Chloride, Blood 100 mmol/L (98-108); Creatinine, Blood 4.69 mg/dL (0.60-1.20); Glomerular Filtration Rate 13 (60-); Glucose, Blood 162 mg/dL (70-99); Magnesium, Blood 2.8 mg/dL (1.6-2.4); Phosphorus, Blood 6.3 mg/dL (2.5-4.9); Potassium, Blood 5.3 mmol/L (3.5-5.5); Sodium, Blood 137 mmol/L (136-145)
--- NOTE | 2019-07-28 14:17 | NUR ---
SON SPOKE WITH PT'S SON AMBER ON THE PHONE WITH THE PT'S PERMISSION, , HE WOULD LIKE TO BE NOTIFIED OF ANY CHANGES
--- NOTE | 2019-07-28 14:49 | NUR ---
Initial Visit: Palliative Care Consult for Symptom Management. Pt's medical history and comorbidities include: ESRD, COPD with Home O2, BPH, CVA, Depression, PE, DVT, and Opiod Dependence. Pt is A&O and denies pain at this time. Pt denies dyspnea at this time. Pt reports mild anxiety and depression. Pt denies nausea. Engaged in therapeutic listening as Pt expresses frustrations regarding his abilities to perform some of the activities he is used to doing. Pt reports seeing a decline that contributes towards his depression. Pt reports he is not able to bend down or squat any more and has unfished projects at home. Discussed the importance of compliance with his depression medications and the importance of routine conversations with a councelor to learn tools and coping stardegies. Discussed the importance of routine conversations with PCP and developing multiple plans as the disease process takes its coarse in order to plan accordingly. Discussed the possibility of needing to hire caregivers in the future to assist with his care. Continued therapeutic listening. Pt reports his son has been making changes in the home to help with safety such as grab bars and installing a walk in shower. Pt expresses appreication of visit and reports no other concerns at this time. Spoke with Bedside TANIA Balbuena and discussed case. Pt may benefit from continued routine couseling secessions. Palliative Care will remain available.
--- NOTE | 2019-07-28 16:29 | NUR ---
PT CONTINUED TO IMPROVE TODAY SITTING UP IN BED FOR MEALS AND WATCHING TU. PT STATED "I FEEL MUCH BETTER TODAY". PT IS LOOKING FORWARD TO LIKELY DC TOMORROW. PT WAS SEEN BY HOSPITAL CARD RUNNER AND SEEME TO APPRECIATE THE CARE HE IS RECIVING. PT HAS HAD A STEADY OUTPUT OF FLUIDS AND HAS TOELRATED HIS MEALS WELL. WILL CONTINUE WITH CURRENT PLAN OF CARE AND MONITOR PER PROTOCOL.
--- NOTE | 2019-07-29 05:01 | NUR ---
SHIFT SUMMARY: 78 Y/O OBESE MALE RESTED COMFORTABLY ALL SHIFT; DENIES PAIN OR NAUSEA; HAPPY AND COOPERATIVE; PT ABLE TO STAND, PIVOT AND AMBULATE VIA WALKER TO BATHROOM AND IN HALLWAY LAST NIGHT X 1 STANDBY ASSIST WITH GAIT SLOW AND STEADY; ALERT AND ORIENTED X 4; DENIES PAIN OR NAUSEA; BED ALARM APPLIED, BED LOW POSITION WITH CALL LIGHT AT SIDE; PT IS TENTATIVELY GETTING DISCHARGED HOME TO SON TODAY.
[2019-07-29 05:22] LABS: Hematocrit 35.7 % (37.0-53.0); Hemoglobin 11.3 g/dL (13.5-17.5)
[2019-07-29 05:48] LABS: Albumin, Blood 3.5 g/dL (3.4-5.0); Anion Gap 9 mmol/L (6-16); Blood Urea Nitrogen 121 mg/dL (8-24); Bun/Creatinine Ratio 30.8 (12.0-20.0); CO2, Blood 30 mmol/L (21-32); Calcium, Blood 8.8 mg/dL (8.5-10.1); Chloride, Blood 98 mmol/L (98-108); Creatinine, Blood 3.93 mg/dL (0.60-1.20); Glomerular Filtration Rate 16 (60-); Glucose, Blood 145 mg/dL (70-99); Magnesium, Blood 2.5 mg/dL (1.6-2.4); Phosphorus, Blood 6.2 mg/dL (2.5-4.9); Potassium, Blood 5.3 mmol/L (3.5-5.5); Sodium, Blood 137 mmol/L (136-145)
[2019-07-29] MEDS ORDERED: Bumetanide2 MG PO (11:46)
[2019-07-29] MEDS ORDERED: ACET325 PO (11:46)
[2019-07-29] MEDS ORDERED: CALCIUM ACETAT667 MG PO (11:47)
--- NOTE | 2019-07-29 12:13 | NUR ---
DISCHARGE PT BEING DISCHARGED TO HOME, PT VERBALIZED UNDERSTANDING OF DISCHARGE INSTRUCTIONS REGARDING MEDICATIONS AND FOLLOW UP, PT CALLED HIS SON TO COME PICK HIM UP, THE SON WILL CALL WHEN HE GETS HERE
--- NOTE | 2019-07-29 13:12 | NUR ---
PT TAKEN OUT SAFELY VIA WHEELCHAIR
[2019-07-30] MEDS ORDERED: LISI20 PO (18:43)
[2019-07-30] MEDS ORDERED: SPIRONOLACTONE25 MG PO (18:44)
== END 2019-07-29 13:11 | disposition home or self-care (01) | DRG 640 ==
LOC: ER 16:18 → MEDS 16:19
PROVIDERS: Emergency Medicine; Internal Medicine Nephrology; Nurse Practitioner; ADMIT Family Medicine
DX: E87.5 Hyperkalemia (principal); N18.6 End stage renal disease; N17.9 Acute kidney failure, unspecified; I13.2 Hypertensive heart and chronic kidney disease with heart failure and with stage 5 chronic kidney disease, or end stage renal disease; J44.9 Chronic obstructive pulmonary disease, unspecified; E11.22 Type 2 diabetes mellitus with diabetic chronic kidney disease; G25.81 Restless legs syndrome; D63.1 Anemia in chronic kidney disease; E83.39 Other disorders of phosphorus metabolism; I95.9 Hypotension, unspecified; G47.33 Obstructive sleep apnea (adult) (pediatric); E87.1 Hypo-osmolality and hyponatremia; N40.0 Benign prostatic hyperplasia without lower urinary tract symptoms; E78.5 Hyperlipidemia, unspecified; K21.9 Gastro-esophageal reflux disease without esophagitis; M10.9 Gout, unspecified; I50.9 Heart failure, unspecified; E21.3 Hyperparathyroidism, unspecified; F32.9 Major depressive disorder, single episode, unspecified; Z99.81 Dependence on supplemental oxygen; Z86.718 Personal history of other venous thrombosis and embolism; Z99.2 Dependence on renal dialysis; Z86.73 Personal history of transient ischemic attack (TIA), and cerebral infarction without residual deficits; Z87.891 Personal history of nicotine dependence
CPT/HCPCS: 36415; 71045; 76770; 80053; 80069; 81001; 82947; 83735; 84100; 84132; 84484; 85014; 85018; 85025; 87086; 87147; 93005; 93010; 94640; 94760; 96365; 96375; 96376; 99285-25; G0378; J0610; J1815; J7030

== ENCOUNTER 2019-07-30 15:38 | Observation (INO) | payer MEDICARE ==
[~2019-07-30] VITALS: Ht 167.6 cm; Wt 105.6 kg
[~2019-07-30 15:38] MED LIST changes: +ACET325 PO; +ALLOPURINOL100 M1 PO; +Bumetanide2 MG PO; +CALCIUM ACETAT667 MG PO; +METO25ER PO; +PRAMIPEXOLE DI1.5 MG PO
[2019-07-30 16:00] LABS: BASOPHILS ABSOLUTE AUTO 0.04 K/mm3 (0.00-0.23); BASOPHILS PERCENT AUTO 0 % (0-2); EOSINOPHILS PERCENT AUTO 4 % (0-6); Hematocrit 37.4 % (37.0-53.0); Hemoglobin 12.2 g/dL (13.5-17.5); IMMATURE GRAN ABSOLUTE AUTO 0.04 K/mm3 (0.00-0.10); IMMATURE GRAN PERCENT AUTO 0 % (0-1); LYMPHOCYTES ABSOLUTE AUTO 2.01 K/mm3 (0.84-5.20); LYMPHOCYTES PERCENT AUTO 20 % (21-46); MONOCYTES ABSOLUTE AUTO 0.89 K/mm3 (0.16-1.47); MONOCYTES PERCENT AUTO 9 % (4-13); Mean Corpuscular HGB 30.5 pg (26.0-34.0); Mean Corpuscular HGB Conc 32.6 g/dL (31.5-36.5); Mean Corpuscular Volume 94 fL (80-100); Mean Platelet Volume 9.9 fL (9.1-12.4); NEUTROPHILS ABSOLUTE AUTO 6.66 K/mm3 (1.96-9.15); NEUTROPHILS PERCENT AUTO 66 % (41-73); Platelet Count 305 K/mm3 (150-400); RDW Coefficient Variation 13.5 % (11.7-14.2); RDW Standard Deviation 46.3 fL (35.1-46.3); White Blood Cell Count 10.04 K/mm3 (4.00-11.30)
[2019-07-30 16:26] LABS: Albumin/Globulin Ratio 1.1 (0.8-1.8); Bilirubin, Total 0.4 mg/dL (0.1-1.0); Bun/Creatinine Ratio 30.7 (12.0-20.0); Calcium, Blood 9.7 mg/dL (8.5-10.1); Creatinine, Blood 3.48 mg/dL (0.60-1.20); Globulin, Blood 3.7 g/dL (2.2-4.0); Potassium, Blood 5.6 mmol/L (3.5-5.5); Total Protein, Blood 7.7 g/dL (6.4-8.2)
[2019-07-30 18:33] LABS: Magnesium, Blood 2.4 mg/dL (1.6-2.4); Phosphorus, Blood 6.1 mg/dL (2.5-4.9); Troponin I <0.015 ng/mL (0.000-0.040)
[2019-07-30] MEDS ORDERED: LISI20 PO (18:43)
[2019-07-30] MEDS ORDERED: SPIRONOLACTONE25 MG PO (18:44)
--- NOTE | 2019-07-31 04:31 | NUR ---
Rn summary: Pt was admitted at 2039 last evening. He had just been discharged the evening before. Pt felt that he maybe over did it today in his yard. Pt is alert and oriented. He is able to ambulate to the BR with his cane without difficulty. He has been voiding lg amounts. Pt has had 2 formed BMs this shift. Pt did c/o a 5/10 headache and received tylenol 650 mg and has rested since. Dr. Ray did see patient last evening in the room. Call light is in reach. Will continue to monitor.
[2019-07-31 06:19] LABS: BASOPHILS ABSOLUTE AUTO 0.03 K/mm3 (0.00-0.23); BASOPHILS PERCENT AUTO 0 % (0-2); EOSINOPHILS ABSOLUTE AUTO 0.48 K/mm3 (0.00-0.68); EOSINOPHILS PERCENT AUTO 7 % (0-6); Hematocrit 35.2 % (37.0-53.0); Hemoglobin 11.2 g/dL (13.5-17.5); IMMATURE GRAN ABSOLUTE AUTO 0.02 K/mm3 (0.00-0.10); IMMATURE GRAN PERCENT AUTO 0 % (0-1); LYMPHOCYTES ABSOLUTE AUTO 2.02 K/mm3 (0.84-5.20); LYMPHOCYTES PERCENT AUTO 29 % (21-46); MONOCYTES ABSOLUTE AUTO 0.78 K/mm3 (0.16-1.47); MONOCYTES PERCENT AUTO 11 % (4-13); Mean Corpuscular HGB 30.2 pg (26.0-34.0); Mean Corpuscular HGB Conc 31.8 g/dL (31.5-36.5); Mean Corpuscular Volume 95 fL (80-100); NEUTROPHILS ABSOLUTE AUTO 3.72 K/mm3 (1.96-9.15); NEUTROPHILS PERCENT AUTO 53 % (41-73); Platelet Count 265 K/mm3 (150-400); RDW Coefficient Variation 13.6 % (11.7-14.2); RDW Standard Deviation 47.5 fL (35.1-46.3); Red Blood Cell Count 3.71 M/mm3 (4.30-5.90); White Blood Cell Count 7.05 K/mm3 (4.00-11.30)
[2019-07-31 06:36] LABS: Albumin, Blood 3.4 g/dL (3.4-5.0); Anion Gap 9 mmol/L (6-16); Blood Urea Nitrogen 102 mg/dL (8-24); Bun/Creatinine Ratio 30.4 (12.0-20.0); CO2, Blood 27 mmol/L (21-32); Chloride, Blood 100 mmol/L (98-108); Creatinine, Blood 3.36 mg/dL (0.60-1.20); Glomerular Filtration Rate 19 (60-); Glucose, Blood 105 mg/dL (70-99); Magnesium, Blood 2.4 mg/dL (1.6-2.4); Phosphorus, Blood 6.8 mg/dL (2.5-4.9); Potassium, Blood 4.4 mmol/L (3.5-5.5); Sodium, Blood 136 mmol/L (136-145)
--- NOTE | 2019-07-31 07:58 | NUR ---
CALLED DR GUAMAN- PT BP 94/73 PULSE 89 PT HAS 25 MG METOPROLOL AND 2MG BUMEX. ORDER RECIEVED TO HOLD BOTH
--- NOTE | 2019-07-31 13:00 | NUR ---
PT WORKED WITH THERAPY- RECIEVED A CALL FROM PHYSICAL THERAPIST. PT C/O FEELING TIGHT AND HEAVY IN THE NECK HEAD AND SHOULDER. WENT TO SPEAK TO THE PT ABOUT IT AND HE STATED THE SYMPTOM WAS GONE AND IT DIDNT HAPPEN UNTIL AFTER HE SAT DOWN AFTER WALKING WITH THERAPY. DR GUAMAN CAME TO SEE THE PT SHORTLY AFTER THAT AND SPOKE TO HER. NEW ORDER FOR CARDIOLOGY REFERAL, TELE PLACED. DR SCHROEDER CAME TO SEE THE PT, CARDIAC STRESS TEST ORDERED FOR THE MORNING.
[2019-07-31] MEDS ORDERED: Percocet 10-321 EACH PO (14:10)
--- NOTE | 2019-07-31 18:43 | NUR ---
SHIFT SUMMARY- PT RUNNING NSR ON TELE NO OTHER EPISODES OF HEAVINESS. POST VOID RESIDUAL CHECKED WITH BLADDER SCANNER 22ML LEFT AFTER PT VOIDED 700ML. PT DENIES ANY PAIN. BIGGEST COMPLAINT IS OF DYSPNEA ON EXERTION. ORDER FOR CONT BIOX IN THE COMPUTER APPEARS TO BE A NURSING ORDER, CALLED RESPIRATORY THERAPY FOR CONT BIOX PLACEMENT. PT HAS BEEN UP INDEPENDENTLY T/O THE DAY MAY NEED TO BE 1PA AT NIGHT. PT CURRENTLY SITTING UP IN BED CALL LIGHT IN REACH, NO S&S OF DISTRESS. PLAN IS FOR NPO AT MIDNIGHT FOR CARDIAC STRESS TEST TOMORROW. PT IS AWARE.
--- NOTE | 2019-08-01 05:58 | NUR ---
SHIFT SUMMARY- PT. A&O, I ASSIST W/WALKER TO THE BATHROOM. PT. SLEPT ON/OFF DURING THE NIGHT. NO APPARENT DISTRESS NOTED. PT. ON RA. CONT BIOX IN PLACE PER ORDER, SATS IN THE LOW 90'S. PT. SCHEDULED FOR STRESS TEST THIS AM. HAS BEEN NPO SINCE [place]. PT. SR ON TELE. DENIED ANY PAIN OR DISCOMFORT T/O THE SHIFT. CALL LIGHT WTIHIN REACH AND SIDE RAILS UP X2. WILL CONT TO MONITOR.
[2019-08-01 06:05] LABS: Albumin, Blood 3.6 g/dL (3.4-5.0); Anion Gap 8 mmol/L (6-16); Blood Urea Nitrogen 70 mg/dL (8-24); Bun/Creatinine Ratio 36.8 (12.0-20.0); CO2, Blood 28 mmol/L (21-32); Calcium, Blood 9.3 mg/dL (8.5-10.1); Chloride, Blood 103 mmol/L (98-108); Glomerular Filtration Rate 36 (60-); Glucose, Blood 118 mg/dL (70-99); Magnesium, Blood 2.3 mg/dL (1.6-2.4); Potassium, Blood 4.2 mmol/L (3.5-5.5); Sodium, Blood 139 mmol/L (136-145)
--- NOTE | 2019-08-01 18:54 | NUR ---
SHIFT SUMMARY PT AXO, PLEASANT AND COOPERATIVE WITH CARE. UP WITH 1 ASSIST TO BATHROOM. PT HAD FIRST PORTION OF STRESS TEST THIS SHIFT. SINUS AT 90 ON TELE. NO ACUTE CHANGES THIS SHIFT. PT ANXIOUS AT TIMES. RESTING WELL AT THIS TIME. BED IN LOW POSITION, CALL LIGHT WITHIN REACH. PT DENIES PAIN, NV AND SOB
--- NOTE | 2019-08-01 19:12 | NUR ---
Initial spiritual care note: Lengthy conversation with this magi man. Facilitated life review. Spouse last year from advanced dementia. Mr. Berman is still grieving this loss. He is adjusting to his declining health and the physical limitations this has brought. His son has moved in to help and is a good support. I provided theraputic listening and bereavement spiritual counselor. We prayed together. We had an easy rapport, and I will remain available.
--- NOTE | 2019-08-01 19:37 | NUR ---
1938-CHARLES WAS IN BED WATCHING TV. AOX3, COOPERATIVE. EXPRESSED BEING DEPRESSED HE IS NOT ABLE TO DO THE PHYSICAL ACTIVITY HE IS USED TO ANY MORE. STATES HE GETS REAL FATIQUE AND WEAK AND SOB AFTER A WHILE WITH ACTIVITY. HE HOPES THEY CAN FIX WHAT IS WRONG WITH HIS HEART SO HE MIGHT CONTINUE TO DO THE THINGS HE LIKES. HE DENIES ANY SOB OR CHEST PAIN/PRESSURE AT THIS TIME. TELEMETRY REPORTS SINUS RYTHEM AT 87. MILD EDEMA IN BLE. LUNG SOUNDS ARE CLEAR THROUGHOUT. WILL CONTINUE TO MONITOR, CALL LIGHT IN REACH.
[2019-08-02 05:09] LABS: Hematocrit 35.8 % (37.0-53.0); Hemoglobin 11.5 g/dL (13.5-17.5)
[2019-08-02 05:22] LABS: Albumin, Blood 3.5 g/dL (3.4-5.0); Anion Gap 9 mmol/L (6-16); Blood Urea Nitrogen 48 mg/dL (8-24); Bun/Creatinine Ratio 30.6 (12.0-20.0); CO2, Blood 26 mmol/L (21-32); Chloride, Blood 104 mmol/L (98-108); Creatinine, Blood 1.57 mg/dL (0.60-1.20); Glomerular Filtration Rate 45 (60-); Glucose, Blood 132 mg/dL (70-99); Magnesium, Blood 2.2 mg/dL (1.6-2.4); Phosphorus, Blood 3.2 mg/dL (2.5-4.9); Potassium, Blood 3.8 mmol/L (3.5-5.5); Sodium, Blood 139 mmol/L (136-145)
--- NOTE | 2019-08-02 06:04 | NUR ---
SHIFT SUMMARY: CHARLES SLEPT PART OF THE SHIFT, STAYING UP TO THE ROVING FRAME TENDER TIME. NO APPARENT DISTRESS NOTED. VSS/AFEBRILE, SATS IN THE 90'S, CONT BIOX IN PLACE LEVELS REMAINED WITH IN LIMITS. TELEMETRY SINUS ALL SHIFT. DENIED ANY CHEST PRESSURE OR PAIN. NO SOB. NPO SINCE MIDNIGHT FOR SECOND PORTION OF STRESS TEST TODAY. HAD HEADACHE EARLY THIS AM, GAVE TYLENOL WHICH RELEIVED IT. NO OTHER CHANGES TO REPORT. CALL LIGHT REMAINED IN REACH.
--- NOTE | 2019-08-02 16:49 | NUR ---
DISCHARGE DISCHARGE MEDICATIONS AND INSTRUCTIONS EXPLAINED TO PATIENT. HE STATED UNDERSTANDING. OCTAVIO WILL CALL PATIENT AT HOME WITH FOLLOW UP APPOINTMENT. IV REMVOED WITHOUT DIFFICULTY. BELOMGINGS WITH PATIENT. PATIENT TRANSFERED TO PRIVATE VEHICLE VIA WHEELCHAIR.
== END 2019-08-02 16:45 | disposition home or self-care (01) ==
LOC: ER 15:38 → MEDS 15:39
PROVIDERS: Emergency Medicine; Internal Medicine Nephrology; Nurse Practitioner Acute Care; ADMIT Internal Medicine
DX: R07.89 Other chest pain (principal); I42.8 Other cardiomyopathies; G47.33 Obstructive sleep apnea (adult) (pediatric); I13.2 Hypertensive heart and chronic kidney disease with heart failure and with stage 5 chronic kidney disease, or end stage renal disease; I50.9 Heart failure, unspecified; E11.22 Type 2 diabetes mellitus with diabetic chronic kidney disease; N18.5 Chronic kidney disease, stage 5; D63.1 Anemia in chronic kidney disease; J44.9 Chronic obstructive pulmonary disease, unspecified; E78.5 Hyperlipidemia, unspecified; G20 Parkinson's disease; F31.9 Bipolar disorder, unspecified; J96.11 Chronic respiratory failure with hypoxia; N17.9 Acute kidney failure, unspecified; E87.1 Hypo-osmolality and hyponatremia; E87.5 Hyperkalemia; K21.9 Gastro-esophageal reflux disease without esophagitis; E66.9 Obesity, unspecified; E83.39 Other disorders of phosphorus metabolism; Z99.81 Dependence on supplemental oxygen; Z87.891 Personal history of nicotine dependence; Z86.718 Personal history of other venous thrombosis and embolism; Z86.711 Personal history of pulmonary embolism; Z86.73 Personal history of transient ischemic attack (TIA), and cerebral infarction without residual deficits; Z79.01 Long term (current) use of anticoagulants; Z79.899 Other long term (current) drug therapy; Z88.0 Allergy status to penicillin; Z88.1 Allergy status to other antibiotic agents; Z88.8 Allergy status to other drugs, medicaments and biological substances
CPT/HCPCS: 36415; 71046; 78452; 80053; 80069; 82947; 83735; 83880; 84100; 84484; 85014; 85018; 85025; 93005; 93010; 93017; 94762; 96360; 97110; 97162; 97530; 99285-25; A9270; A9270-GY; A9500; G0378; J0280; J2785; J7030

== ENCOUNTER → 2019-10-06 | Outpatient (CLI) | payer MEDICARE ==
[~2019-10-06] MED LIST changes: +Percocet 10-321 EACH PO; +SPIRONOLACTONE25 MG PO
== END ==
LOC: LAB EV 12:16 → LAB SHORT 12:16
DX: M25.40 Effusion, unspecified joint (principal)
CPT/HCPCS: 84550

== ENCOUNTER → 2020-03-01 | Outpatient (CLI) | payer MEDICARE ==
[~2020-03-01] MED LIST changes: +CREON DR 12,001 EACH; +METTREX2.5 PO
== END | disposition home or self-care (01) ==
LOC: LAB EV 11:15 → LAB SHORT 11:15
DX: S91.001A Unspecified open wound, right ankle, initial encounter (principal)
CPT/HCPCS: 87070; 87147; 87205

== ENCOUNTER 2020-03-12 00:58 | Day surgery (SDC) | payer MEDICARE | END 2020-03-12 23:44 | disposition home or self-care (01) | LOC: WOUND 00:58 | DX: S91.001A Unspecified open wound, right ankle, initial encounter (principal); E11.622 Type 2 diabetes mellitus with other skin ulcer; E11.40 Type 2 diabetes mellitus with diabetic neuropathy, unspecified; L97.819 Non-pressure chronic ulcer of other part of right lower leg with unspecified severity; G47.33 Obstructive sleep apnea (adult) (pediatric); J44.9 Chronic obstructive pulmonary disease, unspecified; G20 Parkinson's disease; Z88.0 Allergy status to penicillin; Z88.8 Allergy status to other drugs, medicaments and biological substances; Z88.1 Allergy status to other antibiotic agents; Z87.891 Personal history of nicotine dependence; Z79.84 Long term (current) use of oral hypoglycemic drugs; Z79.899 Other long term (current) drug therapy; Z79.01 Long term (current) use of anticoagulants | CPT/HCPCS: G0463 ==

== ENCOUNTER 2020-03-15 08:41 | Day surgery (SDC) | payer MEDICARE | END 2020-03-15 23:34 | disposition home or self-care (01) | LOC: WOUND 08:41 | DX: S91.001A Unspecified open wound, right ankle, initial encounter (principal); E11.622 Type 2 diabetes mellitus with other skin ulcer; I12.9 Hypertensive chronic kidney disease with stage 1 through stage 4 chronic kidney disease, or unspecified chronic kidney disease; E11.22 Type 2 diabetes mellitus with diabetic chronic kidney disease; N18.2 Chronic kidney disease, stage 2 (mild); D63.1 Anemia in chronic kidney disease; F31.9 Bipolar disorder, unspecified; E78.5 Hyperlipidemia, unspecified; G47.00 Insomnia, unspecified; M10.9 Gout, unspecified; F41.9 Anxiety disorder, unspecified; I42.1 Obstructive hypertrophic cardiomyopathy; G47.33 Obstructive sleep apnea (adult) (pediatric); G43.909 Migraine, unspecified, not intractable, without status migrainosus; K21.9 Gastro-esophageal reflux disease without esophagitis; N40.1 Benign prostatic hyperplasia with lower urinary tract symptoms; N13.8 Other obstructive and reflux uropathy; G25.81 Restless legs syndrome; Z79.84 Long term (current) use of oral hypoglycemic drugs; Z79.01 Long term (current) use of anticoagulants; Z79.899 Other long term (current) drug therapy; Z88.0 Allergy status to penicillin; Z88.1 Allergy status to other antibiotic agents; Z88.8 Allergy status to other drugs, medicaments and biological substances; Z86.73 Personal history of transient ischemic attack (TIA), and cerebral infarction without residual deficits; Z51.5 Encounter for palliative care; X58.XXXA Exposure to other specified factors, initial encounter ==

== ENCOUNTER 2020-03-20 00:50 | Day surgery (SDC) | payer MEDICARE | END 2020-03-20 23:01 | disposition home or self-care (01) | LOC: WOUND 00:50 | DX: E11.622 Type 2 diabetes mellitus with other skin ulcer (principal); L97.812 Non-pressure chronic ulcer of other part of right lower leg with fat layer exposed; I96 Gangrene, not elsewhere classified; E11.52 Type 2 diabetes mellitus with diabetic peripheral angiopathy with gangrene; G47.33 Obstructive sleep apnea (adult) (pediatric); G89.29 Other chronic pain; M54.9 Dorsalgia, unspecified; G43.909 Migraine, unspecified, not intractable, without status migrainosus; F41.9 Anxiety disorder, unspecified; F31.9 Bipolar disorder, unspecified; G20 Parkinson's disease; E11.40 Type 2 diabetes mellitus with diabetic neuropathy, unspecified; J44.9 Chronic obstructive pulmonary disease, unspecified; I89.0 Lymphedema, not elsewhere classified; I12.9 Hypertensive chronic kidney disease with stage 1 through stage 4 chronic kidney disease, or unspecified chronic kidney disease; E11.22 Type 2 diabetes mellitus with diabetic chronic kidney disease; N18.2 Chronic kidney disease, stage 2 (mild); D63.1 Anemia in chronic kidney disease; G47.00 Insomnia, unspecified; E78.5 Hyperlipidemia, unspecified; Z96.653 Presence of artificial knee joint, bilateral; Z96.649 Presence of unspecified artificial hip joint; Z87.81 Personal history of (healed) traumatic fracture; Z86.718 Personal history of other venous thrombosis and embolism; Z86.73 Personal history of transient ischemic attack (TIA), and cerebral infarction without residual deficits; Z88.0 Allergy status to penicillin; Z88.1 Allergy status to other antibiotic agents; Z88.8 Allergy status to other drugs, medicaments and biological substances; Z91.010 Allergy to peanuts; Z91.018 Allergy to other foods; Z79.4 Long term (current) use of insulin; Z79.01 Long term (current) use of anticoagulants; Z79.899 Other long term (current) drug therapy; Z87.891 Personal history of nicotine dependence; Z51.5 Encounter for palliative care ==

== ENCOUNTER 2020-03-27 00:14 | Day surgery (SDC) | payer MEDICARE | END 2020-03-27 23:04 | disposition home or self-care (01) | LOC: WOUND 00:14 | DX: E11.622 Type 2 diabetes mellitus with other skin ulcer (principal); L97.319 Non-pressure chronic ulcer of right ankle with unspecified severity; S91.001A Unspecified open wound, right ankle, initial encounter; E11.52 Type 2 diabetes mellitus with diabetic peripheral angiopathy with gangrene; I96 Gangrene, not elsewhere classified; E11.36 Type 2 diabetes mellitus with diabetic cataract; H26.9 Unspecified cataract; G47.33 Obstructive sleep apnea (adult) (pediatric); G89.29 Other chronic pain; M54.9 Dorsalgia, unspecified; G43.909 Migraine, unspecified, not intractable, without status migrainosus; F41.9 Anxiety disorder, unspecified; F31.9 Bipolar disorder, unspecified; G20 Parkinson's disease; I89.0 Lymphedema, not elsewhere classified; I10 Essential (primary) hypertension; M10.9 Gout, unspecified; Z96.653 Presence of artificial knee joint, bilateral; Z88.0 Allergy status to penicillin; Z88.1 Allergy status to other antibiotic agents; Z88.8 Allergy status to other drugs, medicaments and biological substances; Z91.010 Allergy to peanuts; Z86.718 Personal history of other venous thrombosis and embolism; Z86.73 Personal history of transient ischemic attack (TIA), and cerebral infarction without residual deficits; Z79.01 Long term (current) use of anticoagulants; Z79.899 Other long term (current) drug therapy; Z51.5 Encounter for palliative care ==

== ENCOUNTER 2020-04-03 01:13 | Day surgery (SDC) | payer MEDICARE ==
[2020-04-13] MEDS ORDERED: FOLI1 PO (18:55)
[2020-04-13] MEDS ORDERED: CALCIUM ACETAT667 M2 PO (18:56)
[2020-04-13] MEDS ORDERED: Potassium Chlo20 ME1 PO (18:56)
[2020-04-13] MEDS ORDERED: Mirapex1.5 MG PO (18:57)
[2020-04-13] MEDS ORDERED: GLIP2.5ER PO (18:57)
[2020-04-13] MEDS ORDERED: FURO80 PO (18:57)
[2020-04-13] MEDS ORDERED: DOXEPIN HCL100 MG PO (18:58)
[2020-04-13] MEDS ORDERED: ATORVASTATIN CA20 MG PO (18:58)
[2020-04-13] MEDS ORDERED: LISI20 PO (18:59)
[2020-04-13] MEDS ORDERED: CREON DR 12,001 EACH PO (19:00)
== END 2020-04-03 23:26 | disposition home or self-care (01) ==
LOC: WOUND 01:13
DX: E11.622 Type 2 diabetes mellitus with other skin ulcer (principal); L97.312 Non-pressure chronic ulcer of right ankle with fat layer exposed; E11.52 Type 2 diabetes mellitus with diabetic peripheral angiopathy with gangrene; S91.001D Unspecified open wound, right ankle, subsequent encounter; I96 Gangrene, not elsewhere classified; G47.33 Obstructive sleep apnea (adult) (pediatric); G89.29 Other chronic pain; M54.9 Dorsalgia, unspecified; G43.909 Migraine, unspecified, not intractable, without status migrainosus; F41.9 Anxiety disorder, unspecified; F31.9 Bipolar disorder, unspecified; G20 Parkinson's disease; E78.5 Hyperlipidemia, unspecified; G47.00 Insomnia, unspecified; I12.9 Hypertensive chronic kidney disease with stage 1 through stage 4 chronic kidney disease, or unspecified chronic kidney disease; E11.22 Type 2 diabetes mellitus with diabetic chronic kidney disease; N18.2 Chronic kidney disease, stage 2 (mild); D63.1 Anemia in chronic kidney disease; G25.81 Restless legs syndrome; K21.9 Gastro-esophageal reflux disease without esophagitis; E11.36 Type 2 diabetes mellitus with diabetic cataract; H26.9 Unspecified cataract; I89.0 Lymphedema, not elsewhere classified; M10.9 Gout, unspecified; E11.40 Type 2 diabetes mellitus with diabetic neuropathy, unspecified; Z79.01 Long term (current) use of anticoagulants; Z79.899 Other long term (current) drug therapy; Z88.0 Allergy status to penicillin; Z88.1 Allergy status to other antibiotic agents; Z88.8 Allergy status to other drugs, medicaments and biological substances; Z91.010 Allergy to peanuts; Z91.018 Allergy to other foods; Z86.718 Personal history of other venous thrombosis and embolism; Z96.653 Presence of artificial knee joint, bilateral; Z96.649 Presence of unspecified artificial hip joint; X58.XXXD Exposure to other specified factors, subsequent encounter

== ENCOUNTER 2020-04-10 00:33 | Day surgery (SDC) | payer MEDICARE ==
[2020-04-13] MEDS ORDERED: FOLI1 PO (18:55)
[2020-04-13] MEDS ORDERED: Potassium Chlo20 ME1 PO (18:56)
[2020-04-13] MEDS ORDERED: CALCIUM ACETAT667 M2 PO (18:56)
[2020-04-13] MEDS ORDERED: GLIP2.5ER PO (18:57)
[2020-04-13] MEDS ORDERED: FURO80 PO (18:57)
[2020-04-13] MEDS ORDERED: Mirapex1.5 MG PO (18:57)
[2020-04-13] MEDS ORDERED: ATORVASTATIN CA20 MG PO (18:58)
[2020-04-13] MEDS ORDERED: DOXEPIN HCL100 MG PO (18:58)
[2020-04-13] MEDS ORDERED: LISI20 PO (18:59)
[2020-04-13] MEDS ORDERED: CREON DR 12,001 EACH PO (19:00)
== END 2020-04-10 22:58 | disposition home or self-care (01) ==
LOC: WOUND 00:33
DX: E11.622 Type 2 diabetes mellitus with other skin ulcer (principal); L97.319 Non-pressure chronic ulcer of right ankle with unspecified severity; E11.52 Type 2 diabetes mellitus with diabetic peripheral angiopathy with gangrene; I96 Gangrene, not elsewhere classified; E11.36 Type 2 diabetes mellitus with diabetic cataract; S91.001A Unspecified open wound, right ankle, initial encounter; H26.9 Unspecified cataract; E11.40 Type 2 diabetes mellitus with diabetic neuropathy, unspecified; I89.0 Lymphedema, not elsewhere classified; J44.9 Chronic obstructive pulmonary disease, unspecified; G47.30 Sleep apnea, unspecified; I10 Essential (primary) hypertension; M10.9 Gout, unspecified; M19.90 Unspecified osteoarthritis, unspecified site; Z79.01 Long term (current) use of anticoagulants; Z79.899 Other long term (current) drug therapy; Z88.0 Allergy status to penicillin; Z88.1 Allergy status to other antibiotic agents; Z88.8 Allergy status to other drugs, medicaments and biological substances; Z91.010 Allergy to peanuts; Z91.018 Allergy to other foods; Z86.718 Personal history of other venous thrombosis and embolism; X58.XXXA Exposure to other specified factors, initial encounter

== ENCOUNTER 2020-04-17 00:33 | Day surgery (SDC) | payer MEDICARE ==
[~2020-04-17 00:33] MED LIST changes: +ATORVASTATIN CA20 MG PO; +CALCIUM ACETAT667 M2 PO; +DOXEPIN HCL100 MG PO; +FOLI1 PO; +GLIP2.5ER PO; +Mirapex1.5 MG PO; +Potassium Chlo20 ME1 PO
== END 2020-04-17 22:36 | disposition home or self-care (01) ==
LOC: WOUND 00:33
DX: E11.622 Type 2 diabetes mellitus with other skin ulcer (principal); L97.312 Non-pressure chronic ulcer of right ankle with fat layer exposed; E11.52 Type 2 diabetes mellitus with diabetic peripheral angiopathy with gangrene; I96 Gangrene, not elsewhere classified; E11.36 Type 2 diabetes mellitus with diabetic cataract; H26.9 Unspecified cataract; I89.0 Lymphedema, not elsewhere classified; J44.9 Chronic obstructive pulmonary disease, unspecified; I10 Essential (primary) hypertension; E11.40 Type 2 diabetes mellitus with diabetic neuropathy, unspecified; M10.9 Gout, unspecified; G47.33 Obstructive sleep apnea (adult) (pediatric); M19.90 Unspecified osteoarthritis, unspecified site; F41.9 Anxiety disorder, unspecified; F31.9 Bipolar disorder, unspecified; G43.909 Migraine, unspecified, not intractable, without status migrainosus; G20 Parkinson's disease; Z86.718 Personal history of other venous thrombosis and embolism; Z96.653 Presence of artificial knee joint, bilateral; Z96.649 Presence of unspecified artificial hip joint; Z86.73 Personal history of transient ischemic attack (TIA), and cerebral infarction without residual deficits; Z88.0 Allergy status to penicillin; Z88.1 Allergy status to other antibiotic agents; Z88.8 Allergy status to other drugs, medicaments and biological substances; Z91.010 Allergy to peanuts; Z91.018 Allergy to other foods; Z79.01 Long term (current) use of anticoagulants; Z79.84 Long term (current) use of oral hypoglycemic drugs; Z79.899 Other long term (current) drug therapy

== ENCOUNTER 2020-04-25 00:31 | Day surgery (SDC) | payer MEDICARE | END 2020-04-25 22:46 | disposition home or self-care (01) | LOC: WOUND 00:31 | DX: E11.622 Type 2 diabetes mellitus with other skin ulcer (principal); L97.312 Non-pressure chronic ulcer of right ankle with fat layer exposed; E11.52 Type 2 diabetes mellitus with diabetic peripheral angiopathy with gangrene; I96 Gangrene, not elsewhere classified; E11.40 Type 2 diabetes mellitus with diabetic neuropathy, unspecified; E11.36 Type 2 diabetes mellitus with diabetic cataract; G47.33 Obstructive sleep apnea (adult) (pediatric); M19.90 Unspecified osteoarthritis, unspecified site; G89.29 Other chronic pain; M54.9 Dorsalgia, unspecified; F41.9 Anxiety disorder, unspecified; F31.9 Bipolar disorder, unspecified; G43.909 Migraine, unspecified, not intractable, without status migrainosus; H26.9 Unspecified cataract; I89.0 Lymphedema, not elsewhere classified; J44.9 Chronic obstructive pulmonary disease, unspecified; M10.9 Gout, unspecified; G47.00 Insomnia, unspecified; I12.9 Hypertensive chronic kidney disease with stage 1 through stage 4 chronic kidney disease, or unspecified chronic kidney disease; E11.22 Type 2 diabetes mellitus with diabetic chronic kidney disease; D63.1 Anemia in chronic kidney disease; G20 Parkinson's disease; Z86.718 Personal history of other venous thrombosis and embolism; Z96.653 Presence of artificial knee joint, bilateral; Z96.649 Presence of unspecified artificial hip joint; Z88.0 Allergy status to penicillin; Z88.1 Allergy status to other antibiotic agents; Z88.8 Allergy status to other drugs, medicaments and biological substances; Z91.018 Allergy to other foods; Z79.01 Long term (current) use of anticoagulants; Z79.84 Long term (current) use of oral hypoglycemic drugs; Z79.899 Other long term (current) drug therapy; Z87.891 Personal history of nicotine dependence ==

== ENCOUNTER 2020-05-09 01:24 | Day surgery (SDC) | payer MEDICARE | END 2020-05-09 22:59 | disposition home or self-care (01) | LOC: WOUND 01:24 | DX: E11.622 Type 2 diabetes mellitus with other skin ulcer (principal); L97.312 Non-pressure chronic ulcer of right ankle with fat layer exposed; E11.52 Type 2 diabetes mellitus with diabetic peripheral angiopathy with gangrene; I96 Gangrene, not elsewhere classified; S91.001D Unspecified open wound, right ankle, subsequent encounter; G47.33 Obstructive sleep apnea (adult) (pediatric); M19.90 Unspecified osteoarthritis, unspecified site; G89.29 Other chronic pain; M54.9 Dorsalgia, unspecified; G43.909 Migraine, unspecified, not intractable, without status migrainosus; F41.9 Anxiety disorder, unspecified; F31.9 Bipolar disorder, unspecified; G20 Parkinson's disease; E11.36 Type 2 diabetes mellitus with diabetic cataract; H26.9 Unspecified cataract; I89.0 Lymphedema, not elsewhere classified; J44.9 Chronic obstructive pulmonary disease, unspecified; I10 Essential (primary) hypertension; M10.9 Gout, unspecified; E11.40 Type 2 diabetes mellitus with diabetic neuropathy, unspecified; Z86.718 Personal history of other venous thrombosis and embolism; Z79.01 Long term (current) use of anticoagulants; Z86.73 Personal history of transient ischemic attack (TIA), and cerebral infarction without residual deficits; Z88.0 Allergy status to penicillin; Z88.8 Allergy status to other drugs, medicaments and biological substances; Z88.1 Allergy status to other antibiotic agents; Z91.010 Allergy to peanuts; Z91.018 Allergy to other foods; Z79.84 Long term (current) use of oral hypoglycemic drugs; Z79.899 Other long term (current) drug therapy; X58.XXXD Exposure to other specified factors, subsequent encounter ==

== ENCOUNTER → 2020-05-10 | Outpatient (CLI) | payer MEDICARE ==
[~2020-05-10] MED LIST changes: +BELSOMRA10 MG PO; +BUME2 PO; +COLCRYS0.6 MG PO; +DOCU100 PO; +FURO20 PO; +Furosemide80 MG PO; +METO5 PO; +METR59TL TOP; +MIDO5 PO; +MIDODRINE HCL10 M1 PO; +NEURONTIN300 MG PO; +PERCOCET 10-321 EAC1 PO; +SENN187 PO; +SODBIC650 PO
[2020-05-10 13:20] LABS: Albumin, Blood 3.4 g/dL (3.4-5.0); Albumin/Globulin Ratio 1.3 (0.8-1.8); Bilirubin, Total 0.5 mg/dL (0.1-1.0); Bun/Creatinine Ratio 37.8 (12.0-20.0); Calcium, Blood 8.6 mg/dL (8.5-10.1); Creatinine, Blood 2.62 mg/dL (0.60-1.20); Globulin, Blood 2.6 g/dL (2.2-4.0); Phosphorus, Blood 6.6 mg/dL (2.5-4.9); Potassium, Blood 5.2 mmol/L (3.5-5.5)
== END | disposition home or self-care (01) ==
LOC: PLD 12:41
PROVIDERS: Internal Medicine Hematology & Oncology
DX: M1A.00X1 Idiopathic chronic gout, unspecified site, with tophus (tophi) (principal); N18.32 Chronic kidney disease, stage 3b
CPT/HCPCS: 80053; 84100

== ENCOUNTER 2020-05-18 01:39 | Day surgery (SDC) | payer MEDICARE ==
[~2020-05-18 01:39] MED LIST changes: -BELSOMRA10 MG PO; -BUME2 PO; -CALCIUM ACETAT667 M2 PO; -COLCRYS0.6 MG PO; -DOCU100 PO; -DOXEPIN HCL100 MG PO; -FOLI1 PO; -FURO20 PO; -Furosemide80 MG PO; -GLIP2.5ER PO; -METO5 PO; -METR59TL TOP; -MIDO5 PO; -MIDODRINE HCL10 M1 PO; -Mirapex1.5 MG PO; -NEURONTIN300 MG PO; -PERCOCET 10-321 EAC1 PO; -SENN187 PO; -SODBIC650 PO
[2020-05-18] MEDS ORDERED: METO25ER PO (14:12)
[2020-05-18] MEDS ORDERED: PERCOCET 10-321 EAC1 PO (14:13)
[2020-05-18] MEDS ORDERED: ALLO100 PO (14:13)
== END 2020-05-18 11:22 | disposition home or self-care (01) ==
LOC: WOUND 01:39
DX: E11.622 Type 2 diabetes mellitus with other skin ulcer (principal); L97.312 Non-pressure chronic ulcer of right ankle with fat layer exposed; E11.52 Type 2 diabetes mellitus with diabetic peripheral angiopathy with gangrene; I96 Gangrene, not elsewhere classified; I95.9 Hypotension, unspecified; S91.001D Unspecified open wound, right ankle, subsequent encounter; G47.33 Obstructive sleep apnea (adult) (pediatric); M19.90 Unspecified osteoarthritis, unspecified site; G43.909 Migraine, unspecified, not intractable, without status migrainosus; F41.9 Anxiety disorder, unspecified; F31.9 Bipolar disorder, unspecified; G20 Parkinson's disease; E11.36 Type 2 diabetes mellitus with diabetic cataract; H26.9 Unspecified cataract; I89.0 Lymphedema, not elsewhere classified; J44.9 Chronic obstructive pulmonary disease, unspecified; I10 Essential (primary) hypertension; M10.9 Gout, unspecified; E11.40 Type 2 diabetes mellitus with diabetic neuropathy, unspecified; Z79.01 Long term (current) use of anticoagulants; Z79.84 Long term (current) use of oral hypoglycemic drugs; Z79.899 Other long term (current) drug therapy; Z86.73 Personal history of transient ischemic attack (TIA), and cerebral infarction without residual deficits; Z96.653 Presence of artificial knee joint, bilateral; Z86.718 Personal history of other venous thrombosis and embolism; Z96.649 Presence of unspecified artificial hip joint; Z88.0 Allergy status to penicillin; Z88.1 Allergy status to other antibiotic agents; Z88.8 Allergy status to other drugs, medicaments and biological substances; Z91.010 Allergy to peanuts; Z91.018 Allergy to other foods; X58.XXXD Exposure to other specified factors, subsequent encounter
CPT/HCPCS: 82947; A9270

== ENCOUNTER 2020-05-18 13:30 | Inpatient (IN) | payer MEDICARE ==
[~2020-05-18] VITALS: Ht 167.6 cm; Wt 112.8 kg
[2020-05-18 14:09] LABS: BASOPHILS ABSOLUTE AUTO 0.01 K/mm3 (0.00-0.23); BASOPHILS PERCENT AUTO 0 % (0-2); EOSINOPHILS ABSOLUTE AUTO 0.13 K/mm3 (0.00-0.68); EOSINOPHILS PERCENT AUTO 3 % (0-6); Hematocrit 25.6 % (37.0-53.0); Hemoglobin 8.2 g/dL (13.5-17.5); IMMATURE GRAN ABSOLUTE AUTO 0.04 K/mm3 (0.00-0.10); IMMATURE GRAN PERCENT AUTO 1 % (0-1); LYMPHOCYTES ABSOLUTE AUTO 0.95 K/mm3 (0.84-5.20); LYMPHOCYTES PERCENT AUTO 18 % (21-46); MONOCYTES ABSOLUTE AUTO 0.26 K/mm3 (0.16-1.47); MONOCYTES PERCENT AUTO 5 % (4-13); Mean Corpuscular HGB 32.3 pg (26.0-34.0); Mean Corpuscular Volume 101 fL (80-100); Mean Platelet Volume 9.9 fL (9.1-12.4); NEUTROPHILS ABSOLUTE AUTO 3.88 K/mm3 (1.96-9.15); NEUTROPHILS PERCENT AUTO 74 % (41-73); Platelet Count 268 K/mm3 (150-400); RDW Coefficient Variation 15.1 % (11.7-14.2); Red Blood Cell Count 2.54 M/mm3 (4.30-5.90); White Blood Cell Count 5.27 K/mm3 (4.00-11.30)
[2020-05-18] MEDS ORDERED: METO25ER PO (14:12)
[2020-05-18] MEDS ORDERED: PERCOCET 10-321 EAC1 PO (14:13)
[2020-05-18] MEDS ORDERED: ALLO100 PO (14:13)
[2020-05-18 14:35] LABS: Troponin I <0.015 ng/mL (0.000-0.040)
[2020-05-18 14:58] LABS: Alanine Aminotransfer (ALT/SGP 25 U/L (12-78); Albumin, Blood 3.5 g/dL (3.4-5.0); Albumin/Globulin Ratio 0.9 (0.8-1.8); Alk Phos 90 U/L (50-136); Anion Gap 12 mmol/L (6-16); Aspartate Aminotrans (AST/SGOT 41 U/L (12-37); Bilirubin, Total 0.6 mg/dL (0.1-1.0); Blood Urea Nitrogen 143 mg/dL (8-24); Bun/Creatinine Ratio 26.4 (12.0-20.0); CO2, Blood 18 mmol/L (21-32); Calcium, Blood 8.7 mg/dL (8.5-10.1); Chloride, Blood 105 mmol/L (98-108); Creatinine, Blood 5.42 mg/dL (0.60-1.20); Globulin, Blood 3.9 g/dL (2.2-4.0); Glomerular Filtration Rate 11 (60-); Glucose, Blood 88 mg/dL (70-99); Potassium, Blood 6.8 mmol/L (3.5-5.5); Sodium, Blood 135 mmol/L (136-145); Total Protein, Blood 7.4 g/dL (6.4-8.2)
--- NOTE | 2020-05-18 18:47 | NUR ---
SUMMARY PT ARRIVED FROM THE ER VIA RNASHUA, VERY LETHARGIC, SLID PT FROM [facility] TO THE BED WITH SLIDER AND 4 STAFF MEMBERS, PT WEARING A PULL UP FOR INCONTINENCE, PT WAKES BRIEFLY WHEN ASKED QUESTIONS, FALLS ASLEEP WHEN LEFT ALONE, LAB HERE TO DRAW BLOOD, CBG DONE DUE TO LETHARGY, ORIENTED PT TO ROOM AND CALL SYSTEM, WILL CONT TO MONITOR
[2020-05-18 19:03] LABS: Bun/Creatinine Ratio 25.7 (12.0-20.0); Calcium, Blood 8.9 mg/dL (8.5-10.1); Creatinine, Blood 5.3 mg/dL (0.60-1.20); Percent Saturation 22.7 % (20.0-50.0); Potassium, Blood 5.3 mmol/L (3.5-5.5)
--- NOTE | 2020-05-18 21:39 | NUR ---
PHYSICIAN COMMUNICATION CONTACTED ETHANOL MAINTENANCE MECHANIC PHYSICIAN, PREETI ROBLES, AROUND 2109 TO NOTIFY HER THAT THE PATIENT HAD A BLOOD SUGAR OF 60 AND A SYSTOLIC BLOOD PRESSURE OF 84 AND THAT THE PATIENT WAS SOMULENT AND NOT RESPONDING MUCH. PREETI ROBLES SAID TO GIVE THE PATIENT HALF AN AMP OF D50 TO SEE IF THAT WOULD HELP RESOLVE BOTH ISSUES AND TO PULL IT OUT OF THE PIXYS ON OVERRIDE. WHILE ON THE PHONE WITH PREETI ROBLES TILE CLASSIFIER WEI MICHA WAS ABLE TO WAKE THE PATIENT UP, GET HIM TO DRINK ORANGE JUICE AND GET HIM TO START EATING. THIS RN CALLED PREETI ROBLES BACK AND NOTIFIED HER OF THE CHANGE IN THE PATIENT AND THAT HE WAS SUPPOSED TO GET 4 MG OF BUMEX. PREETI ROBLES SAID TO HOLD THE BUMEX. THIS RN NOTIFIED PREETI ROBLES THAT THE PATIENT WAS BEING FOLLOWED BY DR GUADALUPE. PREETI ROBLES SAID THAT SHE WOULD DISCUSS THE PATIENT'S CONDITION WITH DR GUADALUPE AND CALL BACK. WHEN PREETI ROBLES CALLED BACK SHE SAID THAT THE PATIENT WAS TO BE STARTED ON MIDODRINE TONIGHT, AND THAT THE PATIENT WILL BE GETTING AN HD CATHETER PLACED TOMORROW. THIS RN MENTIONED THAT THE PATIENT HADN'T HAD A BOWEL MOVEMENT IN A WHILE AND THAT HE WAS HAVING SOME PAIN UPON PALPATION IN HIS LEFT LOWER QUADRANT OF HIS ABDOMEN. PREETI WYATT SAID TO ORDER BOWEL CARE MEDICATIONS.
[2020-05-19 00:06] LABS: Influenza A, PCR Negative (NEGATIVE); Influenza B, PCR Negative (NEGATIVE); Resp Syncytial Virus, PCR Negative (NEGATIVE); SARS-Cov-2 (COVID-19) PCR, MMC Negative (NEGATIVE)
--- NOTE | 2020-05-19 03:55 | NUR ---
PHYSICIAN COMMUNICATION CONTACTED INBOUND CUSTOMER SERVICE AGENT PHYSICIAN, DR LE, TO NOTIFY HIM THAT THE PATIENT HAS A BLODD PRESSURE OF 78/45. INFORMED HIM THAT THE PATIENT WAS HERE FOR HYPERKALEMIA BUT THE PATHIENT IS HAVING A HEMODIALYSIS CATHETER PLACED TODAY AND THAT THE PATIENT IS EDEMATOUS AND FLUID OVERLOADED. DR LE ORDERED A 250 ML BOLUS OF NORMAL SALINE.
[2020-05-19 05:26] LABS: Hemoglobin 7.1 g/dL (13.5-17.5); Mean Corpuscular HGB 32.4 pg (26.0-34.0); Mean Corpuscular HGB Conc 32.3 g/dL (31.5-36.5); Mean Corpuscular Volume 101 fL (80-100); Mean Platelet Volume 10.4 fL (9.1-12.4); Platelet Count 226 K/mm3 (150-400); RDW Coefficient Variation 14.8 % (11.7-14.2); RDW Standard Deviation 54.4 fL (35.1-46.3); Red Blood Cell Count 2.19 M/mm3 (4.30-5.90); White Blood Cell Count 4.37 K/mm3 (4.00-11.30)
[2020-05-19 05:58] LABS: Albumin, Blood 2.8 g/dL (3.4-5.0); Anion Gap 10 mmol/L (6-16); Blood Urea Nitrogen 129 mg/dL (8-24); Bun/Creatinine Ratio 32.1 (12.0-20.0); CO2, Blood 21 mmol/L (21-32); Calcium, Blood 8.5 mg/dL (8.5-10.1); Chloride, Blood 110 mmol/L (98-108); Creatinine, Blood 4.02 mg/dL (0.60-1.20); Glomerular Filtration Rate 15 (60-); Glucose, Blood 88 mg/dL (70-99); Magnesium, Blood 2.3 mg/dL (1.6-2.4); Potassium, Blood 5.5 mmol/L (3.5-5.5); Sodium, Blood 141 mmol/L (136-145)
--- NOTE | 2020-05-19 06:11 | NUR ---
PHYSICIAN COMMUNICATION CONTACTED DOUPER PHYSICIAN, DR LE, TO NOTIFY HIM THAT THE PATIENT'S BLOOD PRESSURE CAME UP TO 87/42 AFTER THE 250 ML BOLUS OF NORMAL SALINE. HE SAID TO GO AHEAD AND GIVE THE PATIENT'S 0900 DOSE OF MIDODRINE EARLY TO HELP RAISE BLOOD PRESSURE. ALSO NOTIFIED THAT THE PATIENT WAS NPO FOR HEMODIALYSIS CATH PLACEMENT, THAT THE PATIENT'S CURRENT BLOOD SUGAR IS 86, AND THE PATIENT HAS BEEN HAVING TROUBLE MAINTAINING HIS BLOOD SUGAR LEVELS. DR LE DID NOT GIVE ANY NEW ORDERS REGARDING THIS DUE TO THE PATIENT BEING FLUID OVERLOADED. WILL CONTINUE TO MONITOR.
--- NOTE | 2020-05-19 07:21 | NUR ---
SHIFT SUMMARY PATIENT ALERT AND ORIENTED. WAS DROWSY OVERNIGHT BUT WOKE EASILY TO BOTH VERBAL STIMULOUS AND TOUCH. PATIENT HAD NO COMPLAINTS OF SHORTNESS OF BREATH. DID HAVE SOME TENDERNESS IN HIS LEFT LOWER ABDOMEN UPON PALPATION. 0900 MIDODRINE GIVEN EARLY PER DR EL FOR HYPOTENSION. IV PATENT AND FLUSHED. BED IN LOWEST POSITION WITH WHEELS LOCKED AND ALARM ON. CALL LIGHT WITHIN REACH. REPORT GIVEN TO ONCOMING RN.
--- NOTE | 2020-05-19 08:24 | NUR ---
CALLED DR JANG ABOUT PT'S LOW BPS OVERNIGHT, THIS MORNING IT IS IN THE 90S. DR JANG WANTS PO DIRUETICS GIVENT HIS MORNING. WCTM
--- NOTE | 2020-05-19 11:32 | NUR ---
Echocardiogram performed.
--- NOTE | 2020-05-19 18:32 | NUR ---
SHIFT SUMMARY CHARLES DENIED PAIN TODAY EXCEPT OCCASIONAL STABBING PAIN IN HIS MEDIAL R ANKLE WOUND. WOUND CLEANED AND REDRESSED TODAY, HE SEES WOUND CLINIC FOR THIS, WOUND HEALING WELL. HAD RENAL U/S TODAY WELL ECHOCARDIOGRAM. BPS DIDN'T GO BELOW [address] JANG, GAVE ALL PO DIURETICS. AO1 TO BR, HAD 2 BM, CALLED APPROPRIATELY. CBGS STABLE. TOOK MEDS PRESCRIBED. CALL LIGHT IN REACH, WCTM
--- NOTE | 2020-05-19 23:55 | NUR ---
PHYSICIAN COMMUNICATION CONTACTED PRESS OPERATOR CARBON BLOCKS PHYSICIAN, DR KIRAN, TO NOTIFY HER THAT THE PATIENT'S HEMEGLOBIN THIS MORNING WAS 7.1 WHICH IS DOWN FROM 8.2 YESTERDAY. ALSO INFORMED HER THAT IN HIS PROGRESS NOTE, DR JANG WROTE THAT DUE TO THE PATIENT'S CHRONIC ANEMIA HE INTENDS TO TRANSFUSE THE PATIENT TO KEEP HIS HEMEGLOBIN ABOVE 8. BUT NO ACTION WAS TAKEN ON DAY SHIFT REGARDING THIS. DR KIRAN SAID TO WAIT UNTIL THE MORNING DRAW RESULTS COME IN TO REASSESS THE SITUATION SINCE IT HAD BEEN SO LONG SINCE THE PATIENT'S LAST LAB DRAW.
[2020-05-20 05:20] LABS: BASOPHILS ABSOLUTE AUTO 0.01 K/mm3 (0.00-0.23); BASOPHILS PERCENT AUTO 0 % (0-2); EOSINOPHILS ABSOLUTE AUTO 0.17 K/mm3 (0.00-0.68); EOSINOPHILS PERCENT AUTO 3 % (0-6); Hematocrit 24.5 % (37.0-53.0); Hemoglobin 8.1 g/dL (13.5-17.5); IMMATURE GRAN ABSOLUTE AUTO 0.03 K/mm3 (0.00-0.10); IMMATURE GRAN PERCENT AUTO 1 % (0-1); LYMPHOCYTES ABSOLUTE AUTO 1.21 K/mm3 (0.84-5.20); LYMPHOCYTES PERCENT AUTO 21 % (21-46); MONOCYTES ABSOLUTE AUTO 0.28 K/mm3 (0.16-1.47); MONOCYTES PERCENT AUTO 5 % (4-13); Mean Corpuscular HGB 32.8 pg (26.0-34.0); Mean Corpuscular HGB Conc 33.1 g/dL (31.5-36.5); Mean Corpuscular Volume 99 fL (80-100); Mean Platelet Volume 10.3 fL (9.1-12.4); NEUTROPHILS ABSOLUTE AUTO 3.97 K/mm3 (1.96-9.15); NEUTROPHILS PERCENT AUTO 70 % (41-73); Platelet Count 275 K/mm3 (150-400); RDW Coefficient Variation 14.9 % (11.7-14.2); RDW Standard Deviation 54.4 fL (35.1-46.3); Red Blood Cell Count 2.47 M/mm3 (4.30-5.90); White Blood Cell Count 5.67 K/mm3 (4.00-11.30)
[2020-05-20 05:51] LABS: Anion Gap 10 mmol/L (6-16); Blood Urea Nitrogen 120 mg/dL (8-24); Bun/Creatinine Ratio 46.3 (12.0-20.0); CO2, Blood 22 mmol/L (21-32); Calcium, Blood 8.8 mg/dL (8.5-10.1); Chloride, Blood 106 mmol/L (98-108); Creatinine, Blood 2.59 mg/dL (0.60-1.20); Glomerular Filtration Rate 25 (60-); Glucose, Blood 112 mg/dL (70-99); Magnesium, Blood 2.3 mg/dL (1.6-2.4); Phosphorus, Blood 5.4 mg/dL (2.5-4.9); Potassium, Blood 4.8 mmol/L (3.5-5.5); Sodium, Blood 138 mmol/L (136-145)
--- NOTE | 2020-05-20 05:53 | NUR ---
SHIFT SUMMARY PATIENT ALERT AND ORIENTED. HE WAS MORE AWAKE AND INTERACTIVE TONIGHT AND WAS ABLE TO GET UP TO THE BEDSIDE COMMODE FOR A BOWEL MOVEMENT WITH A ONE PERSON MODERATE ASSIST. HE DID COMPLAIN OF ABDOMINAL PAIN BUT SAID IT WAS RELIEVED AFTER HE HAD THE BOWEL MOVEMENT. IV PATENT AND FLUSHED. BED IN LOWEST POSITION WITH WHEELS LOCKED AND ALARM ON. CALL LIGHT WITHIN REACH. REPORT GIVEN TO ONCOMING RN.
--- NOTE | 2020-05-20 11:09 | NUR ---
ADMIT: 05/18/20 DISCHARGE: DX: volume overload and hyperkalemia CC: [email or web address] ADMIT: 07/27/19 DISCHARGE: 08/02/2019 DX:HYPERKALEMIA CC: DUSTIN CUELLAR ADMIT: 06/27/19 DISCHARGE: 06/30/19 DX: SYNCOPE CC: CPEABODY BLESSING CALL: RESIDENCE: HOME () CAREGIVER: Inderjit Berman, Child/Son, . DX: HTN, CKD-stage 2, COPD, Chronic resp. failure, see list DME: CPAP, Wheelchair, Nebulizer, compression stockings, see list CCM: Referral 02/28/20 HOME HEALTH: [facility]- 2007, [facility]- 2019 SUMMARY: Admit: 05/18/20 05/20/20- per chart review with Dr. Dumont, pt will stay another day for observation but est ETA for d/c will be tomorrow. -kjw 1: Acute on chronic renal failure A/P: Likely secondary to volume overload Baseline creatinine around normal range as of 02/22/2020 but over the last month it has trended up to 2.6 today. Did receive additional fluids in the ER, will go ahead and discontinue this Begin 4 mg IV Bumex x1, monitor I's and O's, weights, fluid restriction Avoid nephrotoxic agents, monitor BMP Nephrology consulted, appreciate recommendations 2: Anemia A/P: Acute, macrocytic Complicated by chronic anemia of CKDe in the setting of possible volume overload There is documentation the patient had intermittent nosebleeds also. None noted in the ED. Continue diuresis with IV bumex X 1 We will check B12/folic acid/iron deficiency panel Will transfuse to keep hemoglobin greater than 8 Might benefit from procrit, defer to nephrology 3: Hyperkalemia A/P: Due to #1 - Insulin, D50, calcium gluconate ordered, manny, will give Bumex 4 mg IV x1 - Recheck BMP - Hold home aldactone 4: T2DM (type 2 diabetes mellitus) A/P: With neuropathy Accu-Cheks, sliding scale Hold off on oral antihyperglycemic's 5: EVELIA (obstructive sleep apnea) A/P: Wears O2 at night - Continue home O2 at night 6: Essential hypertension A/P: - Continue home medications 7: GERD (gastroesophageal reflux disease) A/P: - Continue home Pepcid 8: Hyperlipidemia A/P: - Continue home Atorvastatin 9: History of DVT (deep vein thrombosis) A/P: -Also with history of PE - Continue home Eliquis - Continue home compression stockings 10: Acute metabolic encephalopathy A/P: Likely secondary to uremia and hyperkalemia Continue manage as above 11: Hyperparathyroidism due to renal insufficiency A/P: Stable 12: Hypotension A/P: Likely secondary to volume overload Gentle diuresis No known history of heart failure with reduced EF. ADDITIONAL COMMENTS: DVT prophylaxis: Eliquis GI prophylaxis: None CODE STATUS: Full Disposition: Unknown at this time Diet: Cardiac 08/02/2019 - UNABLE TO MEET WITH PT PRIOR TO DISCHARGE. PT DISCHARGED HOME. PER DR. EDEN, NO CARE NEEDS AT THIS TIME. 08/01/2019 - PER DR. EDEN, NO D/T TODAY. IF STRESS TEST NORMAL CAN DISCHARGE HOME TOMORROW. 07/27/2019 - PER DR. ALAMO, NO DISCHARGE TODAY. DISCHARGE 06/30/19 MET WITH CHARLES AND HIS SON PRIOR TO DISCHARGE. DISCUSSED BLESSING CALL, CARE COORDINATION, IDENTIFIED NEED FOR HELP WITH PRESCRIPTION DRUGS, GAVE HIM INFO FOR PRESCRIPTION [facility]. ALSO JEWEL FOR POSSIBLE ASSISTANCE WITH NEW HANDICAP SHOWER. ORDERED HOME HEALTH FOR PT FROM [facility], SON IS PRIMARY TRANSPORTATION. DISCUSSED [employer] SURVEY. WILL COMPLETE. 06/29/19 COLLINS CONSULT, ARANESP/ DECREASE HYDRATION RATE, F/U OUT PATIENT SOON. PT REC [facility] CARE, HH, HAS ASSISTIVE DEVICES AND HELP AT HOME.
--- NOTE | 2020-05-20 18:27 | NUR ---
SHIFT SUMMARY: NO ACUTE EVENTS THIS SHIFT. NO EVENTS ON TELEMETRY, SR 90-100. O2 @ 2 L/MIN NC, NO COUGH. TOOK A SHOWER TODAY, WAS QUITE FATIGUED AFTERWARD. HAS GENERALIZED EDEMA, COMPLIANT WITH 2 L FLUID RESTRICTION. DENIED PAIN, WAS MEDICATED FOR NAUSEA X 1. HAD VISIT FROM SON (GRANDSON?), HAS NEW PLACE TO LIVE. IS HOPING FOR D/C HOME TOMORROW.
[2020-05-21 05:20] LABS: BASOPHILS PERCENT AUTO 0 % (0-2); EOSINOPHILS ABSOLUTE AUTO 0.12 K/mm3 (0.00-0.68); EOSINOPHILS PERCENT AUTO 2 % (0-6); Hematocrit 27.3 % (37.0-53.0); Hemoglobin 8.7 g/dL (13.5-17.5); IMMATURE GRAN ABSOLUTE AUTO 0.04 K/mm3 (0.00-0.10); IMMATURE GRAN PERCENT AUTO 1 % (0-1); LYMPHOCYTES ABSOLUTE AUTO 1.01 K/mm3 (0.84-5.20); LYMPHOCYTES PERCENT AUTO 18 % (21-46); MONOCYTES ABSOLUTE AUTO 0.35 K/mm3 (0.16-1.47); MONOCYTES PERCENT AUTO 6 % (4-13); Mean Corpuscular HGB 31.8 pg (26.0-34.0); Mean Corpuscular HGB Conc 31.9 g/dL (31.5-36.5); Mean Corpuscular Volume 100 fL (80-100); Mean Platelet Volume 10.1 fL (9.1-12.4); NEUTROPHILS ABSOLUTE AUTO 4.06 K/mm3 (1.96-9.15); NEUTROPHILS PERCENT AUTO 73 % (41-73); NRBC ABSOLUTE 0.06 K/mm3 (0.00-0.02); NRBC Auto 1.1 /100 WBC (0.0-0.2); Platelet Count 295 K/mm3 (150-400); RDW Coefficient Variation 14.8 % (11.7-14.2); RDW Standard Deviation 53.3 fL (35.1-46.3); Red Blood Cell Count 2.74 M/mm3 (4.30-5.90); White Blood Cell Count 5.58 K/mm3 (4.00-11.30)
[2020-05-21 05:40] LABS: Albumin, Blood 3.2 g/dL (3.4-5.0); Anion Gap 10 mmol/L (6-16); Blood Urea Nitrogen 107 mg/dL (8-24); Bun/Creatinine Ratio 45.1 (12.0-20.0); CO2, Blood 25 mmol/L (21-32); Calcium, Blood 9.4 mg/dL (8.5-10.1); Chloride, Blood 103 mmol/L (98-108); Creatinine, Blood 2.37 mg/dL (0.60-1.20); Glomerular Filtration Rate 28 (60-); Glucose, Blood 139 mg/dL (70-99); Magnesium, Blood 2.5 mg/dL (1.6-2.4); Phosphorus, Blood 5.4 mg/dL (2.5-4.9); Potassium, Blood 4.2 mmol/L (3.5-5.5); Sodium, Blood 138 mmol/L (136-145)
--- NOTE | 2020-05-21 06:52 | NUR ---
05/21/20 0530 VITALS STABLE. PT HAD SLIGHT NAUSEA ON AND OFF LAST NIGHT AND WAS GIVEN AN ANTI-EMETIC PER JUL. VITALS AND HEART MONITOR STABLE THIS SHIFT. REQUESTS ORAL FLUIDS AND HAS TO BE REMINDED OF MD ORDER FOR FLUID RESTRICTION. HE WAS UP IN CHAIR FOR FEW HOURS LAST EVENING "FOR COMFORT".
--- NOTE | 2020-05-21 14:18 | NUR ---
This patient has given this administrative nursing supervisor Itz Traylor permission to provide care at this time
--- NOTE | 2020-05-21 16:46 | NUR ---
05/21/[address] Nolen, ETA discharge Thursday. Met with Inocente, his daughter and son both live in [facility]. They put a deposit down on an Apartment. [place], this . He is prepared to discharge home with daughter and help pack his belongings to move. His Son will pick him up Thursday night. Discussed DME, says he has what he needs. Noticed in his notes, oxygen for sleep apnea? He is currently receiving wound care with [facility] wound clinic. MAY NEED TO REFER TO ANOTHER WOUND CLINIC NEAR HIS NEW HOME IN [place]. will follow to arrange discharge on Thursday. jose antonio
--- NOTE | 2020-05-21 18:08 | NUR ---
PT IS A/OX3, PLEASANT AND COOPERATIVE, SLOW TO RESPOND AT TIMES, PT DENIED ANY PAIN T/O THE DAY, HOWEVER, THE PT DID REPORT NAUSEA T/O THE DAY, PT DECLINED ANY ZOFRAN REPORTING THAT IT SEEM TO MAKE IT WORSE, THE PT REQUESTED A SMOOTHIE ONE WAS SENT FROM THE KITCHEN FOR HIM, OTHERWISE THE PT HAS HAD POPSICLES, HE SEEMS TO TOLERATE THEM, PT HAS WORKED WITH THE OCCUPATIONAL AND PHYSICAL THERAPIST, PT WAS UP INTO THE CHAIR FOR MEALS, CALL LIGHT IN REACH, WILL CONTINUE TO MONITOR AND ASSESS FOR CHANGES
--- NOTE | 2020-05-21 19:36 | NUR ---
ASSUMED CARE. CHARLES IS UP IN THE CHAIR, AOX3, DENIES ANY PAIN OR DISCOMFORT. LS CLEAR, NO COUGH OR CONGESTION. SOB WITH EXERTION R/T COPD. POOR APPETITE, STATES HAS BEEN GOING DOWN FOR ABOUT A WEEK NOW. HE THINKS IT IS RELATED TO ILLNESS. DISCUSSED POSSIBLY STARTING HIM ON MEGACE. HE NOT SURE ABOUT IT. STATES HE HAS TELEHEALTH AT HOME THAT MONITORS HIS WEIGHT AND VITALS. DENIES ANY NEED FOR BOWEL CARE PRODUCTS. WILL CONTINUE TO MONITOR.
[2020-05-22 05:27] LABS: BASOPHILS ABSOLUTE AUTO 0.01 K/mm3 (0.00-0.23); BASOPHILS PERCENT AUTO 0 % (0-2); EOSINOPHILS ABSOLUTE AUTO 0.11 K/mm3 (0.00-0.68); EOSINOPHILS PERCENT AUTO 2 % (0-6); Hematocrit 28.8 % (37.0-53.0); Hemoglobin 9.4 g/dL (13.5-17.5); IMMATURE GRAN ABSOLUTE AUTO 0.05 K/mm3 (0.00-0.10); IMMATURE GRAN PERCENT AUTO 1 % (0-1); LYMPHOCYTES ABSOLUTE AUTO 1.32 K/mm3 (0.84-5.20); LYMPHOCYTES PERCENT AUTO 18 % (21-46); MONOCYTES ABSOLUTE AUTO 0.58 K/mm3 (0.16-1.47); MONOCYTES PERCENT AUTO 8 % (4-13); Mean Corpuscular HGB 32.5 pg (26.0-34.0); Mean Corpuscular HGB Conc 32.6 g/dL (31.5-36.5); Mean Corpuscular Volume 100 fL (80-100); NEUTROPHILS ABSOLUTE AUTO 5.34 K/mm3 (1.96-9.15); NEUTROPHILS PERCENT AUTO 72 % (41-73); NRBC ABSOLUTE 0.05 K/mm3 (0.00-0.02); NRBC Auto 0.7 /100 WBC (0.0-0.2); Platelet Count 318 K/mm3 (150-400); RDW Coefficient Variation 14.9 % (11.7-14.2); RDW Standard Deviation 53.1 fL (35.1-46.3); Red Blood Cell Count 2.89 M/mm3 (4.30-5.90); White Blood Cell Count 7.41 K/mm3 (4.00-11.30)
--- NOTE | 2020-05-22 05:28 | NUR ---
SHIFT SUMMARY: AOX3, SBA. LS CLEAR. 2+ BLE EDEMA. NO PAIN. VS WNL, AFEBRILE. REFUSED COLACE AND SENNA TONIGHT. REPORTS DECLINE IN APPETITE OVER THE PAST WEEK. BARLEY ATE OR DRANK ANYTHING YESTERDAY. DISCUSSED USE OF MAGACE IF IT CONTINUES, HE WAS NOT SURE ABOUT IT. DENIED ANY OTHER COMPLAINTS OR CONCERNS. CALL LIGHT IS IN REACH.
[2020-05-22 05:53] LABS: Albumin, Blood 3.4 g/dL (3.4-5.0); Anion Gap 8 mmol/L (6-16); Blood Urea Nitrogen 101 mg/dL (8-24); Bun/Creatinine Ratio 40.9 (12.0-20.0); CO2, Blood 26 mmol/L (21-32); Calcium, Blood 9.5 mg/dL (8.5-10.1); Chloride, Blood 101 mmol/L (98-108); Creatinine, Blood 2.47 mg/dL (0.60-1.20); Glomerular Filtration Rate 27 (60-); Glucose, Blood 146 mg/dL (70-99); Magnesium, Blood 2.3 mg/dL (1.6-2.4); Phosphorus, Blood 4.2 mg/dL (2.5-4.9); Potassium, Blood 4.1 mmol/L (3.5-5.5); Sodium, Blood 135 mmol/L (136-145)
--- NOTE | 2020-05-22 15:48 | NUR ---
PT DISCHARGED THE PT VERBALIZED UNDERSTANDING OF THE DC INSTRUCTIONS, [facility] RE[facility], THE PT WAS TRANSFERED VIA WHEELCHAIR ACCOMPANIED BY THE ESCORT VOLUNTEER AND HIS DAUGHTER, THE PT APPEARED TO BE BREATHING EASILY ON RA AT THE TIME OF DC, THE PT WAS A/OX3, PT WAS REMINDED OF HIS FOLLOW UP APPOINTMENTS
--- NOTE | 2020-05-22 18:02 | NUR ---
Admit: 05/18/20 05/22/20 Discharge home, daughter to pick him up today. Can stop by pharmacy to tow picker any new meds. Wound on leg, dressing changed today. Was given instruction for care and extra dressings to care for himself until establishes with new PCP in [place]. Kristina letter sent home with Inocente, noted that Sonia will follow care for 30 days once he has moved to [place]. Will need to locate new pcp. Call Echo / Daughter, or himself at home for kristina. Follow up appointment may need to be telehealth. Inocente does not have a smart phone, but new facility or family member may be able to help with follow up telehealth visit.
== END 2020-05-22 14:24 | disposition home or self-care (01) | DRG 682 ==
LOC: ER 13:30 → MEDS 15:44
PROVIDERS: Internal Medicine Nephrology; Nurse Practitioner Acute Care; Physician Assistant; ADMIT Internal Medicine
PROC: 30233N1 Transfusion of Nonautologous Red Blood Cells into Peripheral Vein, Percutaneous Approach (ICD-10-PCS; principal; 2020-05-18)
DX: N17.9 Acute kidney failure, unspecified (principal); G93.41 Metabolic encephalopathy; I13.0 Hypertensive heart and chronic kidney disease with heart failure and stage 1 through stage 4 chronic kidney disease, or unspecified chronic kidney disease; E87.1 Hypo-osmolality and hyponatremia; E87.2 Acidosis; Z20.822 Contact with and (suspected) exposure to COVID-19; E87.70 Fluid overload, unspecified; D63.8 Anemia in other chronic diseases classified elsewhere; N18.4 Chronic kidney disease, stage 4 (severe); G47.33 Obstructive sleep apnea (adult) (pediatric); E11.21 Type 2 diabetes mellitus with diabetic nephropathy; E87.5 Hyperkalemia; F31.9 Bipolar disorder, unspecified; E11.22 Type 2 diabetes mellitus with diabetic chronic kidney disease; I50.9 Heart failure, unspecified; Z99.81 Dependence on supplemental oxygen; Z91.14 Patient's other noncompliance with medication regimen; Z86.73 Personal history of transient ischemic attack (TIA), and cerebral infarction without residual deficits; K21.9 Gastro-esophageal reflux disease without esophagitis; Z86.711 Personal history of pulmonary embolism; Z86.718 Personal history of other venous thrombosis and embolism; E11.40 Type 2 diabetes mellitus with diabetic neuropathy, unspecified; E78.5 Hyperlipidemia, unspecified; Z79.01 Long term (current) use of anticoagulants; G20 Parkinson's disease; J44.9 Chronic obstructive pulmonary disease, unspecified; E66.9 Obesity, unspecified; F32.9 Major depressive disorder, single episode, unspecified; Z87.891 Personal history of nicotine dependence; Z68.38 Body mass index [BMI] 38.0-38.9, adult; E21.3 Hyperparathyroidism, unspecified; I95.89 Other hypotension
CPT/HCPCS: 0241U; 36415; 70450; 71045; 76770; 80048; 80053; 80069; 82607; 82728; 82746; 82947; 83540; 83550; 83735; 83880; 84443; 84484; 85025; 85027; 93005; 93010; 93306; 96361; 96365; 96375; 97110; 97116; 97162; 97165; 97535; 99285-25; A9270; J0881; J1815; J7030; J7050; Q2038

== ENCOUNTER 2020-05-25 10:06 | Inpatient (IN) | payer MEDICARE ==
[~2020-05-25] VITALS: Ht 167.6 cm; Wt 104.5 kg
[~2020-05-25 10:06] MED LIST changes: +PERCOCET 10-321 EAC1 PO
[2020-05-25] MEDS ORDERED: ALLO100 PO (10:16)
[2020-05-25] MEDS ORDERED: COLCRYS0.6 MG PO (10:17)
[2020-05-25] MEDS ORDERED: BELSOMRA10 MG PO (10:17)
[2020-05-25] MEDS ORDERED: CREON DR 12,001 EACH PO (10:18)
[2020-05-25] MEDS ORDERED: LISI20 PO (10:20)
[2020-05-25] MEDS ORDERED: METO50ER PO (10:22)
[2020-05-25] MEDS ORDERED: METR59TL TOP (10:23)
[2020-05-25] MEDS ORDERED: MIDO5 PO (10:23)
[2020-05-25] MEDS ORDERED: PERCOCET 10-321 EAC1 PO (10:24)
[2020-05-25 10:32] LABS: BASOPHILS ABSOLUTE AUTO 0.02 K/mm3 (0.00-0.23); BASOPHILS PERCENT AUTO 0 % (0-2); EOSINOPHILS ABSOLUTE AUTO 0.04 K/mm3 (0.00-0.68); EOSINOPHILS PERCENT AUTO 0 % (0-6); Hematocrit 30.1 % (37.0-53.0); Hemoglobin 9.6 g/dL (13.5-17.5); IMMATURE GRAN ABSOLUTE AUTO 0.12 K/mm3 (0.00-0.10); IMMATURE GRAN PERCENT AUTO 1 % (0-1); LYMPHOCYTES ABSOLUTE AUTO 0.67 K/mm3 (0.84-5.20); LYMPHOCYTES PERCENT AUTO 5 % (21-46); MONOCYTES ABSOLUTE AUTO 1.14 K/mm3 (0.16-1.47); MONOCYTES PERCENT AUTO 9 % (4-13); Mean Corpuscular HGB 32.2 pg (26.0-34.0); Mean Corpuscular HGB Conc 31.9 g/dL (31.5-36.5); Mean Corpuscular Volume 101 fL (80-100); Mean Platelet Volume 9.3 fL (9.1-12.4); NEUTROPHILS ABSOLUTE AUTO 11.35 K/mm3 (1.96-9.15); NEUTROPHILS PERCENT AUTO 85 % (41-73); Platelet Count 292 K/mm3 (150-400); RDW Coefficient Variation 15.7 % (11.7-14.2); RDW Standard Deviation 57.3 fL (35.1-46.3); Red Blood Cell Count 2.98 M/mm3 (4.30-5.90); White Blood Cell Count 13.34 K/mm3 (4.00-11.30)
[2020-05-25 10:51] LABS: Albumin/Globulin Ratio 1.1 (0.8-1.8); Bilirubin, Total 0.8 mg/dL (0.1-1.0); Bun/Creatinine Ratio 21.8 (12.0-20.0); Calcium, Blood 9.7 mg/dL (8.5-10.1); Globulin, Blood 3.6 g/dL (2.2-4.0); Potassium, Blood 4.2 mmol/L (3.5-5.5); Total Protein, Blood 7.6 g/dL (6.4-8.2)
[2020-05-25 12:00] LABS: Source, Urine Voided
[2020-05-25 12:04] LABS: Bilirubin, Urine Neg (Neg); Blood, Urine Neg (Neg); Glucose Qualitative, Urine Neg (Neg); Ketones, Urine Neg (Neg); Leukocyte Esterase, Urine 1+ (Neg); Nitrite, Urine Neg (Neg); Protein, Urine 2+ (Neg); Urobilinogen, Urine NORM (Normal)
[2020-05-25 12:25] LABS: Appearance, Urine Cloudy (Clear); Color, Urine Yellow (P-Yellow)
[2020-05-25 12:26] LABS: Amorphous Mod (0-Heavy); Bacteria Mod /hpf; Red Blood Cells, Urine 0-2 /hpf (0-2); Squamous Epithelial Cells Few /hpf (Few)
[2020-05-25 12:28] LABS: Calcium Oxalate Crystals Few /hpf
[2020-05-25] MEDS ORDERED: BUME2 PO (12:41)
[2020-05-25] MEDS ORDERED: DOCU100 PO (12:42)
[2020-05-25] MEDS ORDERED: METO5 PO (12:42)
[2020-05-25] MEDS ORDERED: MIDODRINE HCL10 M1 PO (12:44)
[2020-05-25] MEDS ORDERED: OMEP20ER PO (12:44)
[2020-05-25] MEDS ORDERED: SENN187 PO (12:45)
[2020-05-25] MEDS ORDERED: FOLI1 PO (12:46)
[2020-05-25] MEDS ORDERED: SODBIC650 PO (12:46)
[2020-05-25] MEDS ORDERED: METTREX2.5 PO (12:47)
[2020-05-25] MEDS ORDERED: CALCIUM ACETAT667 M2 PO (12:48)
[2020-05-25] MEDS ORDERED: Furosemide80 MG PO (12:49)
[2020-05-25] MEDS ORDERED: ELIQUIS2.5 MG PO (12:50)
[2020-05-25] MEDS ORDERED: FAMO20 PO (12:50)
[2020-05-25] MEDS ORDERED: GLIP2.5ER PO (12:51)
[2020-05-25] MEDS ORDERED: Mirapex1.5 MG PO (12:51)
[2020-05-25] MEDS ORDERED: ATOR20 PO (12:52)
[2020-05-25] MEDS ORDERED: SPIR25 PO (12:52)
[2020-05-25] MEDS ORDERED: NEURONTIN300 MG PO (12:56)
[2020-05-25] MEDS ORDERED: DOXEPIN HCL100 MG PO (12:56)
--- NOTE | 2020-05-25 17:00 | NUR ---
PT ARRIVED TO ICU 2 FROM ER AT 1500. PT IS A/O X4. ABLE TO USE URINAL WITH ASSISTANCE AND VOIDED 200ML. ON NEOSYNEPHERINE ON ARRIVAL. SBP 118 SO PUT IT ON STANDBY. NEXT BP WAS 82/40. RESTARTED DONIS AT 20MCG/MIN. CALLED DR. GUADALUPE TO HAVE MIDODRINE RESTARTED. PT ABLE TO TAKE PILLS WITHOUT ISSUE. PT IS PICKING A DINNER TRAY. NO SIGN OF DISTRESS.
--- NOTE | 2020-05-25 19:05 | NUR ---
CALLED DR. EDEN TO CLARIFY IF PT NEEDS TO BE ON ELIQUIS, HE STATES NO DUE TO KIDNEY FUNCTION.
--- NOTE | 2020-05-25 19:44 | NUR ---
SHIFT ASSESSMENT ASSUMED CARE OF PT @ 1900. REPORT RECV'D FROM JAZZ MARIN. PT SLEEPING UPON INTRODUCTION. WAKENS EASILY TO VERBAL STIMULI. ALERT AND ORIENTED. PT IS CALM AND COOPERATIVE, STATES "I AM VERY TIRED". PT STATED BEING TIRED IS CURRENTLY HIS NORM. ON 4LPM O2 VIA NC c O2 SATS > 95%. NSR/SINUS ZOFIA ON THE MONITOR. NEOSYNEPHRINE GTT @ 40MCG/MIN c MAP>65. WILL CONTINUE TO MONITOR/ TITRATE DONIS PER ORDERS.
[2020-05-26 03:40] LABS: Hematocrit 27.2 % (37.0-53.0); Hemoglobin 8.6 g/dL (13.5-17.5)
[2020-05-26 03:57] LABS: Albumin, Blood 3.1 g/dL (3.4-5.0); Anion Gap 9 mmol/L (6-16); Blood Urea Nitrogen 63 mg/dL (8-24); CO2, Blood 25 mmol/L (21-32); Calcium, Blood 8.7 mg/dL (8.5-10.1); Chloride, Blood 105 mmol/L (98-108); Glomerular Filtration Rate 32 (60-); Glucose, Blood 89 mg/dL (70-99); Magnesium, Blood 2.3 mg/dL (1.6-2.4); Phosphorus, Blood 3.8 mg/dL (2.5-4.9); Potassium, Blood 3.6 mmol/L (3.5-5.5); Sodium, Blood 139 mmol/L (136-145)
--- NOTE | 2020-05-26 05:37 | NUR ---
SHIFT SUMMARY PT ALERT AND ORIENTED. WAS ABLE TO SLEEP T/O THE NIGHT. TOLERATED URINAL USAGE WITH ASSISTANCE, DID NOT DEMONSTRATE ANY ISSUES VOIDING. PT ABLE TO HELP WITH TURNS/ MOVING IN BED BUT STATES HE STILL FEELS VERY WEAK. NEOSYNEPHRINE TITRATED T/O THE NIGHT TO MAINTAIN A MAP >65, SEE FLOW SHEET. NO OTHER SIGNIFICANT CHANGES THIS SHIFT. WILL CONTINUE TO MONITOR.
[2020-05-26 12:52] LABS: BASOPHILS ABSOLUTE AUTO 0.02 K/mm3 (0.00-0.23); BASOPHILS PERCENT AUTO 0 % (0-2); EOSINOPHILS ABSOLUTE AUTO 0.21 K/mm3 (0.00-0.68); EOSINOPHILS PERCENT AUTO 2 % (0-6); Hematocrit 28.1 % (37.0-53.0); Hemoglobin 8.6 g/dL (13.5-17.5); IMMATURE GRAN ABSOLUTE AUTO 0.06 K/mm3 (0.00-0.10); IMMATURE GRAN PERCENT AUTO 1 % (0-1); LYMPHOCYTES ABSOLUTE AUTO 1.59 K/mm3 (0.84-5.20); LYMPHOCYTES PERCENT AUTO 17 % (21-46); MONOCYTES ABSOLUTE AUTO 0.95 K/mm3 (0.16-1.47); MONOCYTES PERCENT AUTO 10 % (4-13); Mean Corpuscular HGB Conc 30.6 g/dL (31.5-36.5); Mean Corpuscular Volume 105 fL (80-100); Mean Platelet Volume 10.1 fL (9.1-12.4); NEUTROPHILS ABSOLUTE AUTO 6.68 K/mm3 (1.96-9.15); NEUTROPHILS PERCENT AUTO 70 % (41-73); Platelet Count 299 K/mm3 (150-400); RDW Coefficient Variation 15.8 % (11.7-14.2); RDW Standard Deviation 59.6 fL (35.1-46.3); Red Blood Cell Count 2.69 M/mm3 (4.30-5.90); White Blood Cell Count 9.51 K/mm3 (4.00-11.30)
--- NOTE | 2020-05-26 13:19 | NUR ---
PT UP TO CHAIR WITH ONE PERSON ASSIST AND CANE. EATING LUNCH. TITRATING NEOSYNEPHERINE SEE FLOWSHEET. NO SIGN OF DISTRESS.
--- NOTE | 2020-05-26 19:01 | NUR ---
SUMMARY PT RESTING IN BED. A/O X4. GOT UP TO CHAIR TODAY WITH ONE PERSON ASSIST. NEOSYNEPHERINE WAS TURNED OFF AT 1500. MAP GREATER THAN 60 WHILE PT IS AWAKE. WHILE SLEEPING MAP IS AROUND 55. LET DR. EDEN KNOW. EATING WELL. NO SIGN OF DISTRESS. USING CALL LIGHT APPROPRIATELY.
--- NOTE | 2020-05-26 20:40 | NUR ---
SHIFT ASSESSMENT PT ALERT AND ORIENTED. SITTING UPRIGHT IN BED TALKING ON THE PHONE. PT JUST FINISHED HIS MEAL. DURING ASSESSMENT PT ASSISTED TO BEDSIDE COMMODE FOR A BM. UTILIZED CANE, REQUIRED MINIMAL ASSISTANCE FROM NURSE, MAINLY NEEDED HELP MANAGING LINES. NO COMPLAINTS AT THIS TIME. MAP >65 WHILE PT IS AWAKE. DONIS ON STANDBY. WILL CONTINUE TO MONITOR.
--- NOTE | 2020-05-27 06:08 | NUR ---
SHIFT SUMMARY PT REMAINS ALERT AND ORIENTED, CALM AND COOPERATIVE. SLEPT MOST OF THE NIGHT. UTILIZED THE URINAL WITHOUT DIFFICULTY. NO SIGNIFICANT CHANGES FROM DAY SHIFT. WILL CONTINUE TO MONITOR, CALL LIGHT IN REACH, REPORT TO ONCOMING NURSE.
[2020-05-27 15:39] LABS: Albumin, Blood 3.2 g/dL (3.4-5.0); Anion Gap 5 mmol/L (6-16); Blood Urea Nitrogen 29 mg/dL (8-24); Bun/Creatinine Ratio 25.2 (12.0-20.0); CO2, Blood 29 mmol/L (21-32); Calcium, Blood 9.3 mg/dL (8.5-10.1); Chloride, Blood 102 mmol/L (98-108); Creatinine, Blood 1.15 mg/dL (0.60-1.20); Glomerular Filtration Rate >60 (60-); Glucose, Blood 99 mg/dL (70-99); Magnesium, Blood 2.2 mg/dL (1.6-2.4); Potassium, Blood 4.2 mmol/L (3.5-5.5); Sodium, Blood 136 mmol/L (136-145)
--- NOTE | 2020-05-27 17:12 | NUR ---
SHIFT SUMMARY... NO ACUTE NEGATIVE CHANGES NOTED THIS SHIFT. PT'S BP HAS IMPROVED T/O THE DAY WITH SBP MORE IN THE 100'S THAN THE 90'S. PT HAS BEEN UP IN THE CHAIR FOR ALL MEALS AND HAS TAKEN A SHORT REST THIS AFTERNOON IN BED. PT'S SON AT THE BEDSIDE FOR A VISIT. PT HAS BEEN USING THE URINAL INDEPENDENTLY AND VOIDING W/O ISSUE. NO EVENTS NOTED ON TELE THIS SHIFT. CALL LIGHT IN REACH WILL CONTINUE TO MONITOR UNTIL REPORT GIVEN TO ONCOMING RN.
--- NOTE | 2020-05-27 19:36 | NUR ---
SHIFT ASSESSMENT ASSUMED CARE OF PT @ 1900. REPORT RECV'D FROM NEIL MAIRN. PT ALERT AND ORIENTED. IN BEDSIDE CHAIR VISITING WITH HIS SON. CALM AND COOPERATIVE. SNACK AND DRINK PROVIDED. NO COMPLAINTS OR CONCERNS. WILL CONTINUE TO MONITOR.
[2020-05-28 03:58] LABS: Hematocrit 29.1 % (37.0-53.0); Hemoglobin 9.1 g/dL (13.5-17.5)
[2020-05-28 04:17] LABS: Albumin, Blood 3.1 g/dL (3.4-5.0); Anion Gap 5 mmol/L (6-16); Blood Urea Nitrogen 24 mg/dL (8-24); Bun/Creatinine Ratio 21.4 (12.0-20.0); CO2, Blood 30 mmol/L (21-32); Calcium, Blood 9.3 mg/dL (8.5-10.1); Chloride, Blood 102 mmol/L (98-108); Creatinine, Blood 1.12 mg/dL (0.60-1.20); Glomerular Filtration Rate >60 (60-); Glucose, Blood 91 mg/dL (70-99); Magnesium, Blood 1.9 mg/dL (1.6-2.4); Potassium, Blood 4.1 mmol/L (3.5-5.5); Sodium, Blood 137 mmol/L (136-145)
--- NOTE | 2020-05-28 06:10 | NUR ---
SHIFT SUMMARY PT REMAINS ALERT AND ORIENTED. ABLE TO SLEEP FOR MOST OF THE NIGHT. NO COMPLAINTS. VSS. TOLERATING FOOD AND DRINK. UTILIZING URINAL W/O ASSISTANCE. WILL CONTINUE TO MONITOR. REPORT TO ONCOMING NURSE.
--- NOTE | 2020-05-28 09:56 | NUR ---
PT DENIES CURRENT PAIN OR DISTRESS. PT VS AND SATS NOTED ON RA. PT NEEDING SBA WITH UP TO BED. PT A/O
--- NOTE | 2020-05-28 11:35 | NUR ---
Pt review of his care needs. Pt grieving over having to leave his home. We reviewed strategies of care. review of assessment by therapyies. pt may go up to [facility] and get home health at his new assisted living facility. Updated critical care physician assistant from [facility]. Review of advance directive. pt does not want to modify his at this time. His children are helping him with new will this week and POA documents.
--- NOTE | 2020-05-28 16:13 | NUR ---
SUMMARY: ADMIT: 05/25/20 05/28/20- PER MCM, PT WILL NOT BE ABLE TO GO TO SNF DUE TO PT AND OT NOTES STATING HOME WITH HOME HEALTH. SPOKE WITH SON, JANNETTE, WHO CONFIRMED THAT THEY HAVE MOVED PT'S STUFF UP TO [facility] AND WILL BE READY FOR WHEN HE DISCHARGES. SON DID MENTION THAT THEY WERE HOPING THAT HE WOULD BE TRANSPORTED UP TO [facility]. CALLED [facility] AND WAS QUOTED $593 TO TRANSPORT THE PATIENT. CONTACT THE SON BACK AND GAVE HIM THE AMOUNT. SON REPORTS THAT HIS DAD TOLD HIM THAT HIS INSURANCE WOULD COVER THE COST OF TRANSPORT. TOLD HIM THAT I AM NOT SURE IF INSURANCE WILL PAY FOR TRANSPORT. RECOMMENDED THAT THEY CONTACT THE INSURANCE. JANNETTE STATED THAT HE WOULD CALL HIS DAD AND TALK WITH HIM ABOUT HOW THEY WOULD LIKE TO PROCEED AND HE WOULD CALL BACK. NOTIFIED NURSE TAKING CARE OF PT. -MARIO
--- NOTE | 2020-05-28 16:28 | NUR ---
REPORT CALLED TO MELONIE MARIN AND PT WILL BE TRANSFERED TO 334 VIA W/C. PT VSS AND HAS BEEN EATING WELL TODAY.
--- NOTE | 2020-05-28 17:06 | NUR ---
SHIFT SUMMARY PATIENT ARRIVED TO MEDICAL UNIT AT 1645 VIA WHEEL CHAIR. HE SELF TRANSFERED TO THE BED WITH CANE AND STAND BY ASSIST. HE IS ALERT AND ORIENTED, ABLE TO MAKE HIS NEEDS KNOWN. PATIENT ORIENTED TO ROOM AND UNIT. BED LOW AND LOCKED, CALL LIGHT WITHIN REACH. WILL CONT TO MONITOR AND REPORT OFF TO DOBBY LOOMS PEGGER
--- NOTE | 2020-05-28 17:08 | NUR ---
PER EFM CM PATIENT WILL BE MOVING INTO ASSISTED LIVING IN [facility]. FAMILY IS UNABLE TO PICK HIM UP AT THIS TIME AND IS LOOKING INTO ALTERNATE TRANSPORT. EMF CM TO CONT TO FOLLOW.
--- NOTE | 2020-05-29 04:27 | NUR ---
SHIFT SUMMARY ADMITTED FOR HYPOTENSION. FULL CODE. PT AMBULATED TO THE BATHROOM THIS SHIFT AND WAS ABLE TO URINATE. PLAN IS FOR DC TO ASSISTED FACILITY IN [place]. RENAL CONSULT IS DR GUADALUPE. WOUND ON RT ANKLE. PT STATES HIS NEUROPATHY IS SEVERE AT TIMES. PT WAS A&O X4 THIS SHIFT. OT/PHYSICAL THERAPY IS WORKING WITH THIS PT. BP'S WERE WITHIN NORMAL LIMITS THIS SHIFT. NO NEW CONCERNS.
[2020-05-29 05:22] LABS: BASOPHILS ABSOLUTE AUTO 0.01 K/mm3 (0.00-0.23); BASOPHILS PERCENT AUTO 0 % (0-2); EOSINOPHILS ABSOLUTE AUTO 0.28 K/mm3 (0.00-0.68); EOSINOPHILS PERCENT AUTO 5 % (0-6); Hematocrit 28.5 % (37.0-53.0); Hemoglobin 9.1 g/dL (13.5-17.5); IMMATURE GRAN ABSOLUTE AUTO 0.04 K/mm3 (0.00-0.10); IMMATURE GRAN PERCENT AUTO 1 % (0-1); LYMPHOCYTES ABSOLUTE AUTO 1.25 K/mm3 (0.84-5.20); LYMPHOCYTES PERCENT AUTO 24 % (21-46); MONOCYTES ABSOLUTE AUTO 0.68 K/mm3 (0.16-1.47); MONOCYTES PERCENT AUTO 13 % (4-13); Mean Corpuscular HGB 31.8 pg (26.0-34.0); Mean Corpuscular HGB Conc 31.9 g/dL (31.5-36.5); Mean Corpuscular Volume 100 fL (80-100); Mean Platelet Volume 9.8 fL (9.1-12.4); NEUTROPHILS ABSOLUTE AUTO 2.92 K/mm3 (1.96-9.15); NEUTROPHILS PERCENT AUTO 56 % (41-73); Platelet Count 228 K/mm3 (150-400); RDW Coefficient Variation 14.7 % (11.7-14.2); RDW Standard Deviation 52.7 fL (35.1-46.3); Red Blood Cell Count 2.86 M/mm3 (4.30-5.90); White Blood Cell Count 5.18 K/mm3 (4.00-11.30)
[2020-05-29 05:42] LABS: Alanine Aminotransfer (ALT/SGP 18 U/L (12-78); Albumin/Globulin Ratio 0.8 (0.8-1.8); Alk Phos 100 U/L (50-136); Anion Gap 8 mmol/L (6-16); Aspartate Aminotrans (AST/SGOT 14 U/L (12-37); Bilirubin, Total 0.3 mg/dL (0.1-1.0); Blood Urea Nitrogen 22 mg/dL (8-24); Bun/Creatinine Ratio 22.2 (12.0-20.0); CO2, Blood 25 mmol/L (21-32); Calcium, Blood 9.3 mg/dL (8.5-10.1); Chloride, Blood 106 mmol/L (98-108); Creatinine, Blood 0.99 mg/dL (0.60-1.20); Globulin, Blood 3.7 g/dL (2.2-4.0); Glomerular Filtration Rate >60 (60-); Glucose, Blood 98 mg/dL (70-99); Magnesium, Blood 1.7 mg/dL (1.6-2.4); Sodium, Blood 139 mmol/L (136-145); Total Protein, Blood 6.7 g/dL (6.4-8.2)
--- NOTE | 2020-05-29 18:27 | NUR ---
SHIFT SUMMARY: NO ACUTE EVENTS. NO MIDODRINE GIVEN THIS AFTERNOON AND EVENING SBP >130. DENIES PAIN. PT WORKED WITH PT/OT TODAY. AMBULATED IN HALLWAY X 2, GAIT STEADY. USING BR INDEPENDENTLY. IS HOPING TO GO HOME TOMORROW.
--- NOTE | 2020-05-29 18:44 | NUR ---
ADMIT: 05/25/20 DISCHARGE: 05/30/20 DX: Hypotension CC: [email or web address] ADMIT: 05/18/20 DISCHARGE: 05/22/20 DX: VOLUME OVERLOAD AND HYPERKALEMIA ADMIT: 07/27/19 DISCHARGE: 08/02/2019 DX:HYPERKALEMIA CC: ADMIT: 06/27/19 DISCHARGE: 06/30/19 DX: SYNCOPE CC: BLESSING CALL: Call Son Inderjit Berman or [facility] RESIDENCE: HOME (), MOVING TO: [facility], CAREGIVER: Inderjit Berman, Child/Son, DX: HTN, CKD-STAGE 2, COPD, CHRONIC RESP. FAILURE, SEE LIST DME: CPAP, WHEELCHAIR, NEBULIZER, COMPRESSION STOCKINGS, BATTERY SCOOTER, SEE LIST. CCM: REFERRAL 02/28/20 HOME HEALTH: [facility]- 2007, [facility]- 2019- 05/22/20 PATIENT NOT HOMEBOUND PER DR EDEN. SUMMARY: Admit: 05/25/20 05/29/19 Per Inocente Munoz should be ready for discharge Thursday. Shantel left message for son that discharge is planned for Thursday, will schedule transport in the am. Does Inocente need a covid test for discharge? Will contact [facility] Thu am to arrange move in and discuss covid test.
--- NOTE | 2020-05-30 04:14 | NUR ---
SHIFT SUMMARY ADMITTED FOR HYPOTENSION. FULL CODE. PLAN IS FOR DC TODAY TO ASSISTED LIVING FACILITY. PT HAS BEEN INDEPENDENT IN ROOM. MIDODRINE AVAILABLE FOR HYPOTENSION. BP'S HAVE BEEN WNL THIS SHIFT. NO NEW CONCERNS THIS SHIFT
[2020-05-30 07:23] LABS: Albumin, Blood 3.3 g/dL (3.4-5.0); Anion Gap 7 mmol/L (6-16); Blood Urea Nitrogen 17 mg/dL (8-24); Bun/Creatinine Ratio 20.3 (12.0-20.0); CO2, Blood 24 mmol/L (21-32); Calcium, Blood 9.5 mg/dL (8.5-10.1); Chloride, Blood 109 mmol/L (98-108); Creatinine, Blood 0.84 mg/dL (0.60-1.20); Glomerular Filtration Rate >60 (60-); Glucose, Blood 100 mg/dL (70-99); Magnesium, Blood 1.7 mg/dL (1.6-2.4); Phosphorus, Blood 2.4 mg/dL (2.5-4.9); Potassium, Blood 3.7 mmol/L (3.5-5.5); Sodium, Blood 140 mmol/L (136-145)
[2020-05-30] MEDS ORDERED: FURO20 PO (14:24)
--- NOTE | 2020-05-30 15:17 | NUR ---
DISCHARGE INSTRUCTIONS COMPLETED AND DISCUSSED WITH PT EXPRESSING UNDERSTANDING. NO NEW SCRIPTS BUT COPIES SENT WITH PT ON DISCHARGE FOR NEW FACILITY TO USE. TO [facility] VIA W/C WITH [facility] TO TRANSPORT PT TO [facility].
== END 2020-05-30 14:35 | disposition home or self-care (01) | DRG 682 ==
LOC: ER 10:06 → ICUE 14:29 → ICUW 14:29 → ICUE 14:56 → MEDS 05-28 16:37
PROVIDERS: Emergency Medicine; Internal Medicine Nephrology; ADMIT Internal Medicine
DX: N17.9 Acute kidney failure, unspecified (principal); R57.8 Other shock; J96.11 Chronic respiratory failure with hypoxia; E87.1 Hypo-osmolality and hyponatremia; T50.2X5A Adverse effect of carbonic-anhydrase inhibitors, benzothiadiazides and other diuretics, initial encounter; N18.4 Chronic kidney disease, stage 4 (severe); Z20.822 Contact with and (suspected) exposure to COVID-19; I12.9 Hypertensive chronic kidney disease with stage 1 through stage 4 chronic kidney disease, or unspecified chronic kidney disease; E11.22 Type 2 diabetes mellitus with diabetic chronic kidney disease; F31.9 Bipolar disorder, unspecified; E78.5 Hyperlipidemia, unspecified; G47.33 Obstructive sleep apnea (adult) (pediatric); D63.8 Anemia in other chronic diseases classified elsewhere; E83.39 Other disorders of phosphorus metabolism; E87.70 Fluid overload, unspecified; Z99.81 Dependence on supplemental oxygen; Z86.73 Personal history of transient ischemic attack (TIA), and cerebral infarction without residual deficits; Z86.711 Personal history of pulmonary embolism; Z86.718 Personal history of other venous thrombosis and embolism; G20 Parkinson's disease; K21.9 Gastro-esophageal reflux disease without esophagitis; I95.2 Hypotension due to drugs; Z79.01 Long term (current) use of anticoagulants
CPT/HCPCS: 36415; 51701; 51798; 80053; 80069; 81001; 82947; 83605; 83690; 83735; 84100; 84484; 85014; 85018; 85025; 87040; 87086; 93005; 93010; 96361-59; 96365-59; 96366-59; 97110; 97116; 97163; 97166; 97530; 97535; 99285-25; A9270; J0881; J1644; J2185; J2370; J7030; J7040; J7060

== ENCOUNTER 2020-11-28 02:10 | Day surgery (SDC) | payer MEDICARE ==
[~2020-11-28 02:10] MED LIST changes: +BELSOMRA10 MG PO; +BUME2 PO; +CALCIUM ACETAT667 M2 PO; +COLCRYS0.6 MG PO; +DOCU100 PO; +DOXEPIN HCL100 MG PO; +FOLI1 PO; +FURO20 PO; +Furosemide80 MG PO; +GLIP2.5ER PO; +METO5 PO; +METR59TL TOP; +MIDO5 PO; +MIDODRINE HCL10 M1 PO; +Mirapex1.5 MG PO; +NEURONTIN300 MG PO; +SENN187 PO; +SODBIC650 PO
== END 2020-11-28 23:07 | disposition home or self-care (01) ==
LOC: WOUND 02:10
DX: E11.622 Type 2 diabetes mellitus with other skin ulcer (principal); L97.812 Non-pressure chronic ulcer of other part of right lower leg with fat layer exposed; S91.001D Unspecified open wound, right ankle, subsequent encounter; X58.XXXD Exposure to other specified factors, subsequent encounter; E11.51 Type 2 diabetes mellitus with diabetic peripheral angiopathy without gangrene; G47.33 Obstructive sleep apnea (adult) (pediatric); Z86.718 Personal history of other venous thrombosis and embolism; G20 Parkinson's disease; G89.29 Other chronic pain
CPT/HCPCS: A9270; G0463

== ENCOUNTER 2020-12-05 01:31 | Day surgery (SDC) | payer MEDICARE | END 2020-12-05 22:42 | disposition home or self-care (01) | LOC: WOUND 01:31 | DX: E11.622 Type 2 diabetes mellitus with other skin ulcer (principal); L97.812 Non-pressure chronic ulcer of other part of right lower leg with fat layer exposed; S91.001D Unspecified open wound, right ankle, subsequent encounter; X58.XXXD Exposure to other specified factors, subsequent encounter; E11.51 Type 2 diabetes mellitus with diabetic peripheral angiopathy without gangrene; G47.33 Obstructive sleep apnea (adult) (pediatric); Z86.718 Personal history of other venous thrombosis and embolism; G20 Parkinson's disease | CPT/HCPCS: A9270 ==

== ENCOUNTER 2020-12-12 01:35 | Day surgery (SDC) | payer MEDICARE | END 2020-12-12 23:05 | disposition home or self-care (01) | LOC: WOUND 01:35 | DX: E11.622 Type 2 diabetes mellitus with other skin ulcer (principal); L97.812 Non-pressure chronic ulcer of other part of right lower leg with fat layer exposed; S91.001D Unspecified open wound, right ankle, subsequent encounter; X58.XXXD Exposure to other specified factors, subsequent encounter; I73.9 Peripheral vascular disease, unspecified | CPT/HCPCS: A9270 ==

== ENCOUNTER 2020-12-19 01:40 | Day surgery (SDC) | payer MEDICARE ==
[2020-12-19] MEDS ORDERED: Robaxin750 MG PO (10:50)
[2020-12-19] MEDS ORDERED: LIDO700A20 TOP (10:50)
== END 2020-12-19 22:39 | disposition home or self-care (01) ==
LOC: WOUND 01:40
DX: E11.622 Type 2 diabetes mellitus with other skin ulcer (principal); L97.812 Non-pressure chronic ulcer of other part of right lower leg with fat layer exposed; E11.51 Type 2 diabetes mellitus with diabetic peripheral angiopathy without gangrene; E11.59 Type 2 diabetes mellitus with other circulatory complications; E11.22 Type 2 diabetes mellitus with diabetic chronic kidney disease; N18.9 Chronic kidney disease, unspecified; R60.0 Localized edema; G47.33 Obstructive sleep apnea (adult) (pediatric); Z96.653 Presence of artificial knee joint, bilateral; Z96.649 Presence of unspecified artificial hip joint; Z86.718 Personal history of other venous thrombosis and embolism; Z86.73 Personal history of transient ischemic attack (TIA), and cerebral infarction without residual deficits
CPT/HCPCS: A9270

== ENCOUNTER 2020-12-19 08:53 | Emergency (ER) | payer MEDICARE ==
[~2020-12-19] VITALS: Ht 167.6 cm; Wt 113.4 kg
[2020-12-19] MEDS ORDERED: Robaxin750 MG PO (10:50)
[2020-12-19] MEDS ORDERED: LIDO700A20 TOP (10:50)
== END 2020-12-19 10:57 | disposition home or self-care (01) ==
LOC: ER 08:53
DX: S39.012A Strain of muscle, fascia and tendon of lower back, initial encounter (principal); G89.29 Other chronic pain; I12.9 Hypertensive chronic kidney disease with stage 1 through stage 4 chronic kidney disease, or unspecified chronic kidney disease; N18.9 Chronic kidney disease, unspecified; J44.9 Chronic obstructive pulmonary disease, unspecified; Z99.81 Dependence on supplemental oxygen; G47.33 Obstructive sleep apnea (adult) (pediatric); G20 Parkinson's disease; K21.9 Gastro-esophageal reflux disease without esophagitis; E11.22 Type 2 diabetes mellitus with diabetic chronic kidney disease; Z88.0 Allergy status to penicillin; Z88.1 Allergy status to other antibiotic agents; Z91.010 Allergy to peanuts; Z91.02 Food additives allergy status; Z91.018 Allergy to other foods; Z79.01 Long term (current) use of anticoagulants; Z79.899 Other long term (current) drug therapy; Z87.891 Personal history of nicotine dependence; X58.XXXA Exposure to other specified factors, initial encounter
CPT/HCPCS: 96372; 99283-25; A9270; J1885

== ENCOUNTER 2020-12-26 02:31 | Day surgery (SDC) | payer MEDICARE ==
[~2020-12-26 02:31] MED LIST changes: +LIDO700A20 TOP; +Robaxin750 MG PO
== END 2020-12-26 23:12 | disposition home or self-care (01) ==
LOC: WOUND 02:31
DX: E11.622 Type 2 diabetes mellitus with other skin ulcer (principal); L97.812 Non-pressure chronic ulcer of other part of right lower leg with fat layer exposed; S91.001D Unspecified open wound, right ankle, subsequent encounter; E11.51 Type 2 diabetes mellitus with diabetic peripheral angiopathy without gangrene
CPT/HCPCS: A9270

== ENCOUNTER → 2021-04-26 | Outpatient (CLI) | payer MEDICARE ==
[2021-04-26 16:10] LABS: BASOPHILS ABSOLUTE AUTO 0.03 K/mm3 (0.00-0.23); BASOPHILS PERCENT AUTO 0 % (0-2); EOSINOPHILS ABSOLUTE AUTO 0.14 K/mm3 (0.00-0.68); EOSINOPHILS PERCENT AUTO 2 % (0-6); Hematocrit 34.8 % (37.0-53.0); Hemoglobin 11.8 g/dL (13.5-17.5); IMMATURE GRAN ABSOLUTE AUTO 0.05 K/mm3 (0.00-0.10); IMMATURE GRAN PERCENT AUTO 1 % (0-1); LYMPHOCYTES ABSOLUTE AUTO 1.68 K/mm3 (0.84-5.20); LYMPHOCYTES PERCENT AUTO 18 % (21-46); MONOCYTES PERCENT AUTO 8 % (4-13); Mean Corpuscular HGB 30.6 pg (26.0-34.0); Mean Corpuscular HGB Conc 33.9 g/dL (31.5-36.5); Mean Corpuscular Volume 90 fL (80-100); Mean Platelet Volume 9.9 fL (9.1-12.4); NEUTROPHILS ABSOLUTE AUTO 6.51 K/mm3 (1.96-9.15); NEUTROPHILS PERCENT AUTO 72 % (41-73); Platelet Count 259 K/mm3 (150-400); RDW Coefficient Variation 15.1 % (11.7-14.2); RDW Standard Deviation 49.2 fL (35.1-46.3); Red Blood Cell Count 3.85 M/mm3 (4.30-5.90); White Blood Cell Count 9.11 K/mm3 (4.00-11.30)
[2021-04-26 16:24] LABS: Alanine Aminotransfer (ALT/SGP 32 U/L (12-78); Albumin, Blood 3.8 g/dL (3.4-5.0); Albumin/Globulin Ratio 1.1 (0.8-1.8); Alk Phos 121 U/L (40-126); Anion Gap 8 mmol/L (6-16); Aspartate Aminotrans (AST/SGOT 27 U/L (12-37); Bilirubin, Total 0.6 mg/dL (0.1-1.0); Blood Urea Nitrogen 28 mg/dL (8-24); Bun/Creatinine Ratio 25.2 (12.0-20.0); CO2, Blood 31 mmol/L (21-32); Calcium, Blood 8.8 mg/dL (8.5-10.1); Chloride, Blood 101 mmol/L (98-108); Creatinine, Blood 1.11 mg/dL (0.60-1.20); Globulin, Blood 3.4 g/dL (2.2-4.0); Glomerular Filtration Rate >60 (60-); Glucose, Blood 138 mg/dL (70-99); Potassium, Blood 3.4 mmol/L (3.5-5.5); Sodium, Blood 140 mmol/L (136-145); Total Protein, Blood 7.2 g/dL (6.4-8.2)
== END | disposition home or self-care (01) ==
LOC: LAB SHORT 16:03
PROVIDERS: General Practice
DX: S81.801A Unspecified open wound, right lower leg, initial encounter (principal); R60.1 Generalized edema
CPT/HCPCS: 80053; 83880; 85025; 87070; 87075; 87147; 87205

== ENCOUNTER 2021-05-15 16:59 | Inpatient (IN) | payer MEDICARE ==
[~2021-05-15] VITALS: Ht 167.6 cm; Wt 111.8 kg
[~2021-05-15 16:59] MED LIST changes: -HYDROCODONE-AC1 EA10 PO
[2021-05-15 17:27] LABS: BASOPHILS ABSOLUTE AUTO 0.02 K/mm3 (0.00-0.23); BASOPHILS PERCENT AUTO 0 % (0-2); EOSINOPHILS ABSOLUTE AUTO 0.08 K/mm3 (0.00-0.68); EOSINOPHILS PERCENT AUTO 1 % (0-6); Hematocrit 41.4 % (37.0-53.0); Hemoglobin 13.9 g/dL (13.5-17.5); IMMATURE GRAN ABSOLUTE AUTO 0.03 K/mm3 (0.00-0.10); IMMATURE GRAN PERCENT AUTO 0 % (0-1); LYMPHOCYTES ABSOLUTE AUTO 1.84 K/mm3 (0.84-5.20); LYMPHOCYTES PERCENT AUTO 19 % (21-46); MONOCYTES ABSOLUTE AUTO 0.83 K/mm3 (0.16-1.47); MONOCYTES PERCENT AUTO 8 % (4-13); Mean Corpuscular HGB 30.8 pg (26.0-34.0); Mean Corpuscular HGB Conc 33.6 g/dL (31.5-36.5); Mean Corpuscular Volume 92 fL (80-100); Mean Platelet Volume 10.6 fL (9.1-12.4); NEUTROPHILS ABSOLUTE AUTO 7.15 K/mm3 (1.96-9.15); NEUTROPHILS PERCENT AUTO 72 % (41-73); Platelet Count 324 K/mm3 (150-400); RDW Coefficient Variation 15.5 % (11.7-14.2); RDW Standard Deviation 50.4 fL (35.1-46.3); Red Blood Cell Count 4.52 M/mm3 (4.30-5.90); White Blood Cell Count 9.95 K/mm3 (4.00-11.30)
[2021-05-15 17:54] LABS: C-REACTIVE PROTEIN, EXT RANGE 1.38 mg/dL (0.000-0.300)
[2021-05-15 18:09] LABS: Bilirubin, Total 0.7 mg/dL (0.1-1.0); Bun/Creatinine Ratio 52.1 (12.0-20.0); Calcium, Blood 9.4 mg/dL (8.5-10.1); Creatinine, Blood 1.21 mg/dL (0.60-1.20); Potassium, Blood 3.5 mmol/L (3.5-5.5)
[2021-05-16 06:14] LABS: Hematocrit 37.4 % (37.0-53.0); Hemoglobin 12.7 g/dL (13.5-17.5); Mean Corpuscular HGB 30.8 pg (26.0-34.0); Mean Corpuscular Volume 91 fL (80-100); Mean Platelet Volume 9.9 fL (9.1-12.4); Platelet Count 277 K/mm3 (150-400); RDW Coefficient Variation 15.3 % (11.7-14.2); Red Blood Cell Count 4.12 M/mm3 (4.30-5.90)
[2021-05-16 06:45] LABS: Anion Gap 12 mmol/L (6-16); Blood Urea Nitrogen 64 mg/dL (8-24); CO2, Blood 33 mmol/L (21-32); Chloride, Blood 93 mmol/L (98-108); Creatinine, Blood 1.05 mg/dL (0.60-1.20); Glomerular Filtration Rate >60 (60-); Glucose, Blood 174 mg/dL (70-99); Potassium, Blood 2.9 mmol/L (3.5-5.5); Sodium, Blood 138 mmol/L (136-145)
--- NOTE | 2021-05-16 15:32 | NUR ---
TRANSFER SUMMARY: LATE ENTRY: PATIENT REPORTING HIGH LEVELS OF PAIN IN RIGHT ANKLE/FOOT. MEDICATED PER PRNS. PATIENT RESPONDS WELL TO ORDERED PAIN MEDICATION. MINIMAL DRAINAGE NOTED FROM WOUND ON RIGHT ANKLE. PATIENT UP WITH MINIMAL ASSIST AND CANE TO BEDSIDE COMMODE AND CHAIR. PATIENT REPORTED SOME DIZZINESS UPON FIRST SITTING UP THAT RESOLVED UPON SITTING UP FOR A FEW MOMENTS. PATIENT TRANSFERRED TO MEDICAL UNIT VIA STRETCHER. PATIENT STABLE AT TIME OF TRANSFER.
--- NOTE | 2021-05-16 18:14 | NUR ---
PATIENT IS ALERT AND ORIENTED AND COOPERATIVE WITH CARE. C/O RIGHT ANKLE PAIN, MEDICATED PER EMAR. DR. QUINONES WAS CONSULTED AND SAW THE PATIENT THIS AFTERNOON. PICTURES OF WOUNDS TAKEN AND PLACED ON CHART. WILL CONTINUE TO MONITOR
--- NOTE | 2021-05-17 04:51 | NUR ---
SHIFT SUMMARY PT PAINFUL THIS EVENING. REPORTING GENERALIZED PAIN FROM SLEEPING ON ER GURNEY THE NIGHT BEFORE AND ALSO PAIN TO RLE WOUND SITE. MEDICATED PER EMAR. PT DID NOT SLEEP ALOT. ONLY APPEARING TO SLEEP WELL FOR A COUPLE HOURS. RLE ULCER LEFT OPEN TO AIR. LARGE AMOUNT OF DISCOLORED AREA AROUND WOUND. ELEVATED LEG UP ON A PILLOW. SMALL AMOUNT OF PURULENT DRAINAGE. OTHERWISE, PT HAD AN UNEVENTFUL NIGHT. VITAL SIGNS REMAINED STABLE. PT AFEBRILE.
[2021-05-17 05:52] LABS: BASOPHILS ABSOLUTE AUTO 0.02 K/mm3 (0.00-0.23); BASOPHILS PERCENT AUTO 0 % (0-2); EOSINOPHILS ABSOLUTE AUTO 0.16 K/mm3 (0.00-0.68); EOSINOPHILS PERCENT AUTO 2 % (0-6); Hematocrit 38.5 % (37.0-53.0); Hemoglobin 12.8 g/dL (13.5-17.5); IMMATURE GRAN ABSOLUTE AUTO 0.04 K/mm3 (0.00-0.10); IMMATURE GRAN PERCENT AUTO 1 % (0-1); LYMPHOCYTES PERCENT AUTO 21 % (21-46); MONOCYTES ABSOLUTE AUTO 0.67 K/mm3 (0.16-1.47); MONOCYTES PERCENT AUTO 8 % (4-13); Mean Corpuscular HGB 30.9 pg (26.0-34.0); Mean Corpuscular HGB Conc 33.2 g/dL (31.5-36.5); Mean Corpuscular Volume 93 fL (80-100); Mean Platelet Volume 10.1 fL (9.1-12.4); NEUTROPHILS ABSOLUTE AUTO 5.87 K/mm3 (1.96-9.15); NEUTROPHILS PERCENT AUTO 69 % (41-73); Platelet Count 252 K/mm3 (150-400); RDW Coefficient Variation 15.1 % (11.7-14.2); RDW Standard Deviation 51.6 fL (35.1-46.3); Red Blood Cell Count 4.14 M/mm3 (4.30-5.90); White Blood Cell Count 8.56 K/mm3 (4.00-11.30)
[2021-05-17 06:04] LABS: Alanine Aminotransfer (ALT/SGP 30 U/L (12-78); Albumin, Blood 3.2 g/dL (3.4-5.0); Albumin/Globulin Ratio 0.8 (0.8-1.8); Alk Phos 98 U/L (50-136); Anion Gap 6 mmol/L (6-16); Aspartate Aminotrans (AST/SGOT 21 U/L (12-37); Blood Urea Nitrogen 42 mg/dL (8-24); Bun/Creatinine Ratio 49.5 (12.0-20.0); CO2, Blood 34 mmol/L (21-32); Calcium, Blood 9.4 mg/dL (8.5-10.1); Chloride, Blood 97 mmol/L (98-108); Creatinine, Blood 0.85 mg/dL (0.60-1.20); Globulin, Blood 4.1 g/dL (2.2-4.0); Glomerular Filtration Rate >60 (60-); Glucose, Blood 144 mg/dL (70-99); Magnesium, Blood 2.5 mg/dL (1.6-2.4); Phosphorus, Blood 2.5 mg/dL (2.5-4.9); Potassium, Blood 2.9 mmol/L (3.5-5.5); Sodium, Blood 137 mmol/L (136-145); Total Protein, Blood 7.3 g/dL (6.4-8.2)
--- NOTE | 2021-05-17 08:01 | NUR ---
PAGED DR. LUGO AT [phone]. CALLED [address] LUGO PHONE AND LEFT A VOICEMAIL AT 08:00.
[2021-05-17] MEDS ORDERED: METO5 PO (14:21)
[2021-05-17] MEDS ORDERED: HYDROCODONE-AC1 EA10 PO (14:23)
--- NOTE | 2021-05-17 15:14 | NUR ---
Initial Interview with [facility] Community Escrow Assistant 1. Who did you speak with? Spoke with patient 2. What is the patient's prior level of functions? Patient lives independently with a radio time sales supervisor advance seal delivery system maintainer in the residence. Patient lives in a single story home with four steps to front entrance and two steps to back entrance. Patient has a ramp and residence is wheelchair accessible. Patient states his home is safe with running water, heat, electricity, and sewage. 3. What is the patient's current living situation? Patient lives independently with radio time sales supervisor caregiver 4. Is the patient and/or family able to provide transportation to and from doctor's appointments and quill picking machine operator prescriptions? Patient does not drive, but his caregiver assists with transportation needs. 5. Does patient still drive? No 6. POA/PCP/NOK: NOK: Daughter Echo/PCP: BERE Galvan 7. Discharge goals: Home/TBD -TBD -Medication Management: Caregiver -Preferred Pharmacy: [facility] -Housekeeping need: Caregiver -Cooking: Caregiver 8. List barriers to discharge: None known at this time 9. Discharge Plan: Home/TBD 10. PCP Follow up appointment: Will be scheduled within seven calendar days of discharge 11. Other Notes: patient is not a
--- NOTE | 2021-05-17 16:50 | NUR ---
PATIENT IS ALERT AND ORIENTED AND COOPERATIVE WITH CARE. MRI COMPLETED TODAY.DR. LUGO WAS CONSULTED AND SAW THE PATIENT THIS AFTERNOON. WOUND CARE CONSULTATION PLACED. PATIENT CAN STAND PIVOT TO THE RECLINER. WILL CONTINUE TO MONITOR
[2021-05-17 20:43] LABS: Vancomycin, Trough 10.4 ug/mL (5.0-10.0)
--- NOTE | 2021-05-18 00:01 | NUR ---
PT IV FLUSHES WELL BUT PT SCREAMS WITH EACH FLUSH OR MEDICATIONS. ASSESSING FOR ANOTHER PLACE TO START A NEW IV.
--- NOTE | 2021-05-18 04:51 | NUR ---
SHIFT SUMMARY PT AOX3 AND C/O PAIN IN LEG/ANKLE AT THE START OF THIS SHIFT. PT WAS MEDICATED PER EMAR AND NEW ORDERS ADDED TO HELP WITH INCREASED PAIN. THE PT TOLERATED THE START OF THEIR NEW IV WELL AND WAS ABLE TO REST WITHOUT PAIN. PT ASLEEP WITH RISE AND FALL OF CHEST NO S/S OF DISTRESS. THIS NURSE WILL CONTINUE TO MONITOR UNTIL REPORT IS GIVEN.
[2021-05-18 05:37] LABS: Alanine Aminotransfer (ALT/SGP 24 U/L (12-78); Albumin, Blood 2.9 g/dL (3.4-5.0); Albumin/Globulin Ratio 0.9 (0.8-1.8); Alk Phos 94 U/L (50-136); Anion Gap 7 mmol/L (6-16); Aspartate Aminotrans (AST/SGOT 19 U/L (12-37); Bilirubin, Total 0.7 mg/dL (0.1-1.0); Blood Urea Nitrogen 32 mg/dL (8-24); Bun/Creatinine Ratio 34.6 (12.0-20.0); CO2, Blood 31 mmol/L (21-32); Calcium, Blood 8.9 mg/dL (8.5-10.1); Chloride, Blood 98 mmol/L (98-108); Creatinine, Blood 0.93 mg/dL (0.60-1.20); Globulin, Blood 3.1 g/dL (2.2-4.0); Glomerular Filtration Rate >60 (60-); Glucose, Blood 130 mg/dL (70-99); Potassium, Blood 3.6 mmol/L (3.5-5.5); Sodium, Blood 136 mmol/L (136-145)
--- NOTE | 2021-05-18 18:18 | NUR ---
SHIFT SUMMARY- PAIN MANAGEMENT CHANGED. 5-15 MG PO OXY GAVE 5 WAS MINIMALLY EFFECTIVE, MEDICATED WITH 50MCG OF FENTANYL. PAIN APPEARS WELL MANAGED AT THIS TIME.
--- NOTE | 2021-05-19 05:25 | NUR ---
SHIFT SUMMARY PT AOX3 AND WAS ASLEEP AT THE START OF THIS SHIFT. PT C/O PAIN IN RIGHT LEG AND ANKLE BUT MEDICATED PER EMAR. PT DID BETTER WITH NEW MED CHANGE THIS SHIFT MANAGING PAIN. PT ASLEEP WITH RISE AND FALL OF CHEST NO S/S OF DISTRESS, WILL CONTINUE TO MONITOR UNTIL REPORT IS GIVEN.
--- NOTE | 2021-05-19 18:33 | NUR ---
SHIFT SUMMARY- PT ALERT AND ORIENTED, 1PA TO THE CHAIR OR BATHROOM. PAIN WAS WELL MANAGED WITH 10MG OXY, PT DECLINED ADDITIONAL PAIN MEDICATION, HOWEVER THE PAIN CAME BACK SUDDENLY THIS EVENING, WILL PASS ON TO NIGHT RN TO BE SURE TO MEDICATE CLOSER TOGETHER FOR BETTER MANAGEMENT. PT WAS ASSISTED BACK TO BED FROM THE RECLINER AND STATED AFTER THE TRANSFER HIS PAIN WAS 10/10. PT IN BED WITH THE LEG ELEVATED PAIN MEDS GIVEN PER EMAR. CALL LIGHT IN REACH. PT IS TO BE NPO AT MIDNIGHT FOR A PROCEDURE WITH DR DEL RIO. WILL PASS ON TO NIGHT RN TO CALL TOMORROW MORNING TO SEE WHAT TIME THE PROCEDURE IS PLANNED FOR. WOUND CARE CONSULT HAS BEEN ORDERED, WILL ALSO PASS ON TO NIGHT RN TO ENSURE DAYSHIFT RN THURSDAY MORNING CALLS THE WOUND CARE CONSULT.
[2021-05-20 03:38] LABS: Influenza A, PCR NEGATIVE (NEGATIVE); Influenza B, PCR NEGATIVE (NEGATIVE); Resp Syncytial Virus, PCR NEGATIVE (NEGATIVE); SARS-Cov-2 (COVID-19) PCR, MMC NEGATIVE (NEGATIVE)
--- NOTE | 2021-05-20 06:33 | NUR ---
SHIFT SUMMARY PT AOX3 AND WAS IN PAIN AT THE START OF THIS SHIFT. PT WAS MEDICATED PRIOR TO THIS SHIFT AND HELPED BACK IN BED WITH A TWO PERSON ASSIST. PT WAS MEDICATED PER EMAR AND AROUND 0000 THE IV BEGAN TO LEAK. NEW IV PLACED AND PT TOLERATED WELL ENOUGH TO FINISH ABX. PT ASLEEP WITH RISE AND FALL OF CHEST, NO S/S OF DISTRESS. PT HAS REMAINED NPO SINCE MIDNIGHT FOR PROCEDURE. DOCTOR WANTS DAYSHIFT TO CONFIRM TIME OF PROCEDURE TO ENSURE PT IS NOT LEFT NPO TO LONG HAVING ADA DIET. WOUND CARE CONSULT IN PLACE AFTER PROCEDURE TODAY, WILL CONTINUE TO MONITOR UNTIL REPORT IS GIVEN.
--- NOTE | 2021-05-20 14:53 | NUR ---
REPORT GIVEN TO PCU NURSEJABARI.
--- NOTE | 2021-05-20 16:29 | NUR ---
TRANSFER TO HEART CENTER PT TRANSFERED TO HEART CENTER VIA BED. PT STATES FAMILY IS AWARE OF THIS PLAN. BELONGINGS SENT TO ROOM [id number]. TANIA BARBOZA IN PCU AWARE THAT PT WAS TAKEN TO HEART CENTER.
--- NOTE | 2021-05-20 17:28 | NUR ---
LESLIE NOTE RECEIVED TELEPHONE REPORT FROM TANIA GOODWIN ON MEDICAL AND BEDSIDE REPROT FROM CREATIVE PRODUCER. PT TO ROOM AT APPRX 1715. LEFT GROIN SITE WITH ANGIO SEAL. PT ORIENTED TO ROOM AND CALL LIGHT. EDCUATED ON ACTIVITY RESTRICTIONS AND PLAN TO RECOVER SITE. PT SLEEPING, A&Ox3; CALM AND COOPERATIVE. PT DENIES PAIN, CHEST PAIN, SOB, NASUEA AND DIZZINESS. LS CLEAR T/O DIM TO BASES, SPO2 >90% ON RA. PT PER TELE SINUS WITH PACs AT 71, BP STABLE, MURMUR NOTED. BS HYPERACTIVE IN BILATERAL LOWER QUAD, HYPOACTIVE IN BILATERAL UPPER QUADS; PT REPORTS PASSING GAS, MILD DISTENTION, SOFT NONTENDER ON PALPATION. ATTENDS IN PLACE. WOUND TO RIGHT INTERIOR ANKLE COVERED WITH MEPILEX. BILATERAL FAINT PEDAL PULSES NOTED. 2+ PITTING EDEMA NOTED TO RLE AND 1+ PITTING EDEMA NOTED TO LLE. NO OTHER ACUTE CHANGES NOTED. WILL CONTINUE TO MONITOR UNITL REPORT GIVEN TO ONCOMING RN.
--- NOTE | 2021-05-21 06:36 | NUR ---
SHIFT SUMMARY PATIENT FOUND TO BE A PLESANT MAN WHO IS A&OX4 WITH GENERALIZED WEAKNESS. LEFT GROIN SITE C/D/I ALL SHIFT WITH NO SIGNS OF BLEEDING OR HEMATOMA. PULSE AND COLOR WNL. DOES HAVE SOME NEUROPATHY AT [place]. DID NOT GET UP TO AMBULATE TAKES 2 PEOPLE AND A WALKER AND PATIENT STATED HE WAS TOO TIRED LAST NIGHT. Q2H TURNS. TOLERATING ADA DIET WITHOUT ISSUE. VOIDING WELL PER URINAL. SOME PAIN TO RIGHT FOOT WOUND AND PRN FENT GIVEN X1 WITH GOOD RELIEF. NO ACUTE CONCERNS AT THIS TIME. WILL CONTINUE PLAN OF CARE UNTIL REPORT GIVEN TO RIGOBERTO MARIN.
[2021-05-21] MEDS ORDERED: OXAYDO5 M1 PO (16:12)
[2021-05-21] MEDS ORDERED: CLIN150 PO (16:14)
--- NOTE | 2021-05-21 17:32 | NUR ---
DISCHARGE SUMMARY PT A&Ox3; CALM AND COOPERATIVE WITH CARE. PT UP WITH 1-2 PERSON ASSIST TO CHAIR THIS AM, PHYSICAL THERAPY HAS SEEN PATIENT. PT REPORTS PAIN TO RLE, MEDICATED x2 WITH POSITIVE RESULTS. PT DENIES CHEST PAIN, SOB, NAUSEA AND DIZZINESS T/O SHIFT. DRESSING CHANGED TO RIGHT ANKLE THIS EVENING, UPDATED PICTURES IN CHART. VSS. NO OTHER ACUTE CHANGES NOTED. PT STATES HE HAS A LIVE IN [facility], HIS HOME IS COMPLETELY ACCESSABLE AND HE HAS A CANE, WALKER AND SCOOTER AT HOME. PT EDUCATED REGARDING DISCHARTE INSTURCITONS, FOLLOW UP APPOINTMENT, MEDICATIONS AND HOME HEALTH. PT REQUESTING [facility]. PT AWAITING RIDE HOME.
--- NOTE | 2021-05-22 11:47 | NUR ---
Received referral from nurse manager care management (Emili Montes) on 05/21/2021. Patient discharged 05/21/2021 with orders for home health and elected [facility]. Contacted patient at number provided on demographic sheet today- 05/22/2021 to further discuss the above. Initially spoke with patient's caregiver (Stefanie) and then patient who are both agreeable to the above. Discussed homebound status definition with patient. Patient verbalized understanding. Discussed what home health is vs what it is not (in home caregivers/housekeeping). Patient verbalized understanding. Discussed the next steps in the process of an initial assessment to determine frequency of visits. Again patient verbalized understanding. Offered a chance for patient to ask questions regarding the above of which there were none. Gathered all supporting documentation for referral (face sheet, face to face, med list, H&P, discharge summary, and most recent PT assessment) and sent to [facility] for review. No further interventions required. Alida Lindquist Referral Liaison
== END 2021-05-21 17:41 | disposition home health service (06) | DRG 638 ==
LOC: ER 16:59 → ERHOLD 17:00 → MEDS 17:00 → ERHOLD 23:14 → ER 23:14 → MEDS 23:14 → ER 23:14 → MEDS 05-16 14:00 → ERHOLD 05-16 14:00 → MEDS 05-19 15:02 → PCU 05-20 16:40
PROVIDERS: Family Medicine; Hospitalist; Internal Medicine; Physician Assistant; ADMIT Internal Medicine
PROC: B41D1ZZ Fluoroscopy of Aorta and Bilateral Lower Extremity Arteries using Low Osmolar Contrast (ICD-10-PCS; principal; 2021-05-20)
DX: E11.628 Type 2 diabetes mellitus with other skin complications (principal); L03.115 Cellulitis of right lower limb; L97.419 Non-pressure chronic ulcer of right heel and midfoot with unspecified severity; E87.1 Hypo-osmolality and hyponatremia; J96.11 Chronic respiratory failure with hypoxia; Z20.822 Contact with and (suspected) exposure to COVID-19; E11.621 Type 2 diabetes mellitus with foot ulcer; G20 Parkinson's disease; G43.909 Migraine, unspecified, not intractable, without status migrainosus; F31.9 Bipolar disorder, unspecified; E78.5 Hyperlipidemia, unspecified; I12.9 Hypertensive chronic kidney disease with stage 1 through stage 4 chronic kidney disease, or unspecified chronic kidney disease; E11.22 Type 2 diabetes mellitus with diabetic chronic kidney disease; N18.30 Chronic kidney disease, stage 3 unspecified; N40.0 Benign prostatic hyperplasia without lower urinary tract symptoms; E11.51 Type 2 diabetes mellitus with diabetic peripheral angiopathy without gangrene; I73.9 Peripheral vascular disease, unspecified; E87.6 Hypokalemia; D63.1 Anemia in chronic kidney disease; K86.89 Other specified diseases of pancreas; G47.33 Obstructive sleep apnea (adult) (pediatric); J44.9 Chronic obstructive pulmonary disease, unspecified; K21.9 Gastro-esophageal reflux disease without esophagitis; M10.9 Gout, unspecified; Z86.718 Personal history of other venous thrombosis and embolism; Z87.891 Personal history of nicotine dependence; Z28.21 Immunization not carried out because of patient refusal; Z86.73 Personal history of transient ischemic attack (TIA), and cerebral infarction without residual deficits; Z99.81 Dependence on supplemental oxygen; Z86.14 Personal history of Methicillin resistant Staphylococcus aureus infection; Z79.01 Long term (current) use of anticoagulants; Z88.8 Allergy status to other drugs, medicaments and biological substances; Z86.711 Personal history of pulmonary embolism; Z88.0 Allergy status to penicillin; Z88.1 Allergy status to other antibiotic agents; Z79.899 Other long term (current) drug therapy
CPT/HCPCS: 0241U; 36246; 36415; 73600; 73720; 75625; 75716; 75774; 76937; 80048; 80053; 80202; 82947; 83735; 84100; 85025; 85027; 85651; 86140; 90471; 90714; 93922; 93926; 93971; 96365; 96366; 96367; 96372; 96375; 96376; 97161; 99152; 99153; 99284-25; A9270; A9579; C1760; C1769; C1887; C1894; G0378; J1644; J1650; J2250; J3010; J3370; J7030; J7050; Q9967

== ENCOUNTER → 2021-05-15 | Outpatient (CLI) | payer MEDICARE ==
[~2021-05-15] MED LIST changes: +HYDROCODONE-AC1 EA10 PO
[2021-05-15 16:36] LABS: BASOPHILS ABSOLUTE AUTO 0.02 K/mm3 (0.00-0.23); BASOPHILS PERCENT AUTO 0 % (0-2); EOSINOPHILS ABSOLUTE AUTO 0.09 K/mm3 (0.00-0.68); EOSINOPHILS PERCENT AUTO 1 % (0-6); Hematocrit 38.8 % (37.0-53.0); Hemoglobin 13.1 g/dL (13.5-17.5); IMMATURE GRAN ABSOLUTE AUTO 0.04 K/mm3 (0.00-0.10); IMMATURE GRAN PERCENT AUTO 0 % (0-1); LYMPHOCYTES ABSOLUTE AUTO 1.74 K/mm3 (0.84-5.20); LYMPHOCYTES PERCENT AUTO 19 % (21-46); MONOCYTES ABSOLUTE AUTO 0.87 K/mm3 (0.16-1.47); MONOCYTES PERCENT AUTO 9 % (4-13); Mean Corpuscular HGB 30.5 pg (26.0-34.0); Mean Corpuscular HGB Conc 33.8 g/dL (31.5-36.5); Mean Corpuscular Volume 90 fL (80-100); Mean Platelet Volume 10.3 fL (9.1-12.4); NEUTROPHILS ABSOLUTE AUTO 6.53 K/mm3 (1.96-9.15); NEUTROPHILS PERCENT AUTO 70 % (41-73); Platelet Count 320 K/mm3 (150-400); RDW Coefficient Variation 15.6 % (11.7-14.2); RDW Standard Deviation 49.7 fL (35.1-46.3); Red Blood Cell Count 4.29 M/mm3 (4.30-5.90); White Blood Cell Count 9.29 K/mm3 (4.00-11.30)
[2021-05-15 16:51] LABS: Albumin, Blood 4.1 g/dL (3.4-5.0); Albumin/Globulin Ratio 1.1 (0.8-1.8); Bilirubin, Total 0.7 mg/dL (0.1-1.0); Bun/Creatinine Ratio 45.3 (12.0-20.0); Calcium, Blood 9.3 mg/dL (8.5-10.1); Creatinine, Blood 1.37 mg/dL (0.60-1.20); Globulin, Blood 3.6 g/dL (2.2-4.0); Potassium, Blood 3.1 mmol/L (3.5-5.5); Total Protein, Blood 7.7 g/dL (6.4-8.2)
== END | disposition home or self-care (01) ==
LOC: LAB SHORT 16:32
PROVIDERS: Physician Assistant
DX: E11.9 Type 2 diabetes mellitus without complications (principal)
CPT/HCPCS: 80053; 83036; 85025

== ENCOUNTER → 2021-06-13 | Outpatient (CLI) | payer MEDICARE ==
[~2021-06-13] MED LIST changes: +CLIN150 PO; +HYDROCODONE-AC1 EA10 PO; +OXAYDO5 M1 PO
[2021-06-13 14:04] LABS: BASOPHILS ABSOLUTE AUTO 0.03 K/mm3 (0.00-0.23); BASOPHILS PERCENT AUTO 0 % (0-2); EOSINOPHILS ABSOLUTE AUTO 0.08 K/mm3 (0.00-0.68); EOSINOPHILS PERCENT AUTO 1 % (0-6); Hematocrit 38.2 % (37.0-53.0); IMMATURE GRAN ABSOLUTE AUTO 0.04 K/mm3 (0.00-0.10); IMMATURE GRAN PERCENT AUTO 0 % (0-1); LYMPHOCYTES ABSOLUTE AUTO 1.54 K/mm3 (0.84-5.20); LYMPHOCYTES PERCENT AUTO 16 % (21-46); MONOCYTES ABSOLUTE AUTO 0.82 K/mm3 (0.16-1.47); MONOCYTES PERCENT AUTO 8 % (4-13); Mean Corpuscular HGB 30.7 pg (26.0-34.0); Mean Corpuscular Volume 90 fL (80-100); Mean Platelet Volume 9.9 fL (9.1-12.4); NEUTROPHILS PERCENT AUTO 74 % (41-73); Platelet Count 271 K/mm3 (150-400); RDW Coefficient Variation 14.6 % (11.7-14.2); RDW Standard Deviation 47.2 fL (35.1-46.3); Red Blood Cell Count 4.23 M/mm3 (4.30-5.90); White Blood Cell Count 9.81 K/mm3 (4.00-11.30)
== END | disposition home or self-care (01) ==
LOC: LAB SHORT 13:57
PROVIDERS: Physician Assistant Surgical
DX: M25.531 Pain in right wrist (principal)
CPT/HCPCS: 84550; 85025

== ENCOUNTER 2021-08-26 01:53 | Day surgery (SDC) | payer MEDICARE | END 2021-08-26 22:44 | disposition home or self-care (01) | LOC: WOUND 01:53 | DX: E11.622 Type 2 diabetes mellitus with other skin ulcer (principal); L97.812 Non-pressure chronic ulcer of other part of right lower leg with fat layer exposed; E11.51 Type 2 diabetes mellitus with diabetic peripheral angiopathy without gangrene; I70.25 Atherosclerosis of native arteries of other extremities with ulceration; J44.9 Chronic obstructive pulmonary disease, unspecified; I10 Essential (primary) hypertension; G47.33 Obstructive sleep apnea (adult) (pediatric); G20 Parkinson's disease; G89.29 Other chronic pain; M54.9 Dorsalgia, unspecified; Z86.718 Personal history of other venous thrombosis and embolism; Z88.0 Allergy status to penicillin; Z88.1 Allergy status to other antibiotic agents | CPT/HCPCS: A9270; G0463 ==

== ENCOUNTER 2021-09-04 01:09 | Day surgery (SDC) | payer MEDICARE | END 2021-09-04 22:42 | disposition home or self-care (01) | LOC: WOUND 01:09 | DX: E11.622 Type 2 diabetes mellitus with other skin ulcer (principal); L97.812 Non-pressure chronic ulcer of other part of right lower leg with fat layer exposed; E11.51 Type 2 diabetes mellitus with diabetic peripheral angiopathy without gangrene; I70.25 Atherosclerosis of native arteries of other extremities with ulceration; G47.33 Obstructive sleep apnea (adult) (pediatric); Z86.718 Personal history of other venous thrombosis and embolism | CPT/HCPCS: A9270 ==

== ENCOUNTER 2021-09-13 00:28 | Day surgery (SDC) | payer MEDICARE | END 2021-09-13 22:51 | disposition home or self-care (01) | LOC: WOUND 00:28 | DX: E11.622 Type 2 diabetes mellitus with other skin ulcer (principal); L97.812 Non-pressure chronic ulcer of other part of right lower leg with fat layer exposed; E11.51 Type 2 diabetes mellitus with diabetic peripheral angiopathy without gangrene; I70.25 Atherosclerosis of native arteries of other extremities with ulceration; G47.33 Obstructive sleep apnea (adult) (pediatric) | CPT/HCPCS: A9270 ==

== ENCOUNTER 2021-09-18 02:03 | Day surgery (SDC) | payer MEDICARE | END 2021-09-18 23:09 | disposition home or self-care (01) | LOC: WOUND 02:03 | DX: E11.622 Type 2 diabetes mellitus with other skin ulcer (principal); L97.812 Non-pressure chronic ulcer of other part of right lower leg with fat layer exposed; E11.51 Type 2 diabetes mellitus with diabetic peripheral angiopathy without gangrene; I70.25 Atherosclerosis of native arteries of other extremities with ulceration | CPT/HCPCS: A9270 ==

== ENCOUNTER 2021-09-25 08:28 | Day surgery (SDC) | payer MEDICARE | END 2021-09-25 22:48 | disposition home or self-care (01) | LOC: WOUND 08:28 | DX: E11.622 Type 2 diabetes mellitus with other skin ulcer (principal); L97.812 Non-pressure chronic ulcer of other part of right lower leg with fat layer exposed; E11.51 Type 2 diabetes mellitus with diabetic peripheral angiopathy without gangrene; I70.25 Atherosclerosis of native arteries of other extremities with ulceration; G47.33 Obstructive sleep apnea (adult) (pediatric) | CPT/HCPCS: A9270 ==

== ENCOUNTER 2021-10-02 01:15 | Day surgery (SDC) | payer MEDICARE | END 2021-10-02 23:09 | disposition home or self-care (01) | LOC: WOUND 01:15 | DX: E11.622 Type 2 diabetes mellitus with other skin ulcer (principal); L97.812 Non-pressure chronic ulcer of other part of right lower leg with fat layer exposed; E11.51 Type 2 diabetes mellitus with diabetic peripheral angiopathy without gangrene; I70.25 Atherosclerosis of native arteries of other extremities with ulceration; G47.33 Obstructive sleep apnea (adult) (pediatric) | CPT/HCPCS: A9270; G0463 ==

== ENCOUNTER 2021-10-16 01:29 | Day surgery (SDC) | payer MEDICARE | END 2021-10-21 23:34 | disposition home or self-care (01) | LOC: WOUND 01:29 | DX: E11.622 Type 2 diabetes mellitus with other skin ulcer (principal); L97.812 Non-pressure chronic ulcer of other part of right lower leg with fat layer exposed; E11.51 Type 2 diabetes mellitus with diabetic peripheral angiopathy without gangrene; I70.25 Atherosclerosis of native arteries of other extremities with ulceration; I87.2 Venous insufficiency (chronic) (peripheral); G47.33 Obstructive sleep apnea (adult) (pediatric); G20 Parkinson's disease | CPT/HCPCS: A9270 ==

== ENCOUNTER 2021-10-23 04:34 | Day surgery (SDC) | payer MEDICARE | END 2021-10-23 23:05 | disposition home or self-care (01) | LOC: WOUND 04:34 | DX: E11.622 Type 2 diabetes mellitus with other skin ulcer (principal); L97.812 Non-pressure chronic ulcer of other part of right lower leg with fat layer exposed; E11.51 Type 2 diabetes mellitus with diabetic peripheral angiopathy without gangrene; I70.25 Atherosclerosis of native arteries of other extremities with ulceration; I87.2 Venous insufficiency (chronic) (peripheral); G47.33 Obstructive sleep apnea (adult) (pediatric); G20 Parkinson's disease | CPT/HCPCS: A9270; Q4133 ==

== ENCOUNTER 2021-10-30 00:51 | Day surgery (SDC) | payer MEDICARE | END 2021-10-30 22:42 | disposition home or self-care (01) | LOC: WOUND 00:51 | DX: E11.622 Type 2 diabetes mellitus with other skin ulcer (principal); L97.812 Non-pressure chronic ulcer of other part of right lower leg with fat layer exposed; E11.51 Type 2 diabetes mellitus with diabetic peripheral angiopathy without gangrene; I70.25 Atherosclerosis of native arteries of other extremities with ulceration; I87.2 Venous insufficiency (chronic) (peripheral); G47.33 Obstructive sleep apnea (adult) (pediatric) | CPT/HCPCS: A9270; Q4133 ==

== ENCOUNTER 2021-11-06 01:35 | Day surgery (SDC) | payer MEDICARE | END 2021-11-06 22:44 | disposition home or self-care (01) | LOC: WOUND 01:35 | DX: E11.622 Type 2 diabetes mellitus with other skin ulcer (principal); L97.812 Non-pressure chronic ulcer of other part of right lower leg with fat layer exposed; E11.51 Type 2 diabetes mellitus with diabetic peripheral angiopathy without gangrene; I70.25 Atherosclerosis of native arteries of other extremities with ulceration; I87.2 Venous insufficiency (chronic) (peripheral); G47.33 Obstructive sleep apnea (adult) (pediatric); G20 Parkinson's disease | CPT/HCPCS: A9270; Q4133 ==

== ENCOUNTER 2021-11-13 08:00 | Day surgery (SDC) | payer MEDICARE | END 2021-11-13 23:59 | disposition home or self-care (01) | LOC: WOUND 08:00 | DX: E11.622 Type 2 diabetes mellitus with other skin ulcer (principal); L97.812 Non-pressure chronic ulcer of other part of right lower leg with fat layer exposed; E11.51 Type 2 diabetes mellitus with diabetic peripheral angiopathy without gangrene; I70.25 Atherosclerosis of native arteries of other extremities with ulceration; I87.2 Venous insufficiency (chronic) (peripheral); G47.33 Obstructive sleep apnea (adult) (pediatric) | CPT/HCPCS: A9270; Q4133 ==

== ENCOUNTER 2021-11-20 03:47 | Day surgery (SDC) | payer MEDICARE ==
[2021-11-26] MEDS ORDERED: POTCHL20ER PO (09:23)
[2021-11-26] MEDS ORDERED: OMEP20ER PO (09:23)
[2021-11-26] MEDS ORDERED: ZYLOPRIM300 M1 PO (09:23)
[2021-11-26] MEDS ORDERED: MELATONIN1010 PO (09:23)
[2021-11-26] MEDS ORDERED: MIRAPEX ER3 MG PO (09:24)
[2021-11-26] MEDS ORDERED: TAMS.4ER PO (09:24)
== END 2021-11-20 23:56 ==
LOC: WOUND 03:47
DX: E11.622 Type 2 diabetes mellitus with other skin ulcer (principal); L97.812 Non-pressure chronic ulcer of other part of right lower leg with fat layer exposed; E11.51 Type 2 diabetes mellitus with diabetic peripheral angiopathy without gangrene; I70.25 Atherosclerosis of native arteries of other extremities with ulceration; I87.2 Venous insufficiency (chronic) (peripheral); G47.33 Obstructive sleep apnea (adult) (pediatric)
CPT/HCPCS: A9270; Q4133

== ENCOUNTER 2021-11-27 02:36 | Day surgery (SDC) | payer MEDICARE ==
[~2021-11-27 02:36] MED LIST changes: +MELATONIN1010 PO; +MIRAPEX ER3 MG PO; +TAMS.4ER PO; +ZYLOPRIM300 M1 PO
== END 2021-11-29 23:34 | disposition home or self-care (01) ==
LOC: WOUND 02:36
DX: E11.622 Type 2 diabetes mellitus with other skin ulcer (principal); L97.812 Non-pressure chronic ulcer of other part of right lower leg with fat layer exposed; E11.51 Type 2 diabetes mellitus with diabetic peripheral angiopathy without gangrene; I70.25 Atherosclerosis of native arteries of other extremities with ulceration; I87.2 Venous insufficiency (chronic) (peripheral); G47.33 Obstructive sleep apnea (adult) (pediatric); G20 Parkinson's disease
CPT/HCPCS: A9270; Q4133

== ENCOUNTER 2021-12-04 01:22 | Day surgery (SDC) | payer MEDICARE | END 2021-12-04 23:31 | disposition home or self-care (01) | LOC: WOUND 01:22 | DX: E11.622 Type 2 diabetes mellitus with other skin ulcer (principal); L97.812 Non-pressure chronic ulcer of other part of right lower leg with fat layer exposed; I73.9 Peripheral vascular disease, unspecified; E11.51 Type 2 diabetes mellitus with diabetic peripheral angiopathy without gangrene; I70.239 Atherosclerosis of native arteries of right leg with ulceration of unspecified site; I87.2 Venous insufficiency (chronic) (peripheral); E11.22 Type 2 diabetes mellitus with diabetic chronic kidney disease; N18.9 Chronic kidney disease, unspecified; G47.33 Obstructive sleep apnea (adult) (pediatric); G20 Parkinson's disease; Z86.718 Personal history of other venous thrombosis and embolism; Z86.73 Personal history of transient ischemic attack (TIA), and cerebral infarction without residual deficits | CPT/HCPCS: A9270; G0463 ==

== ENCOUNTER 2021-12-09 02:27 | Day surgery (SDC) | payer MEDICARE | END 2021-12-09 23:09 | disposition home or self-care (01) | LOC: WOUND 02:27 | DX: E11.622 Type 2 diabetes mellitus with other skin ulcer (principal); L97.812 Non-pressure chronic ulcer of other part of right lower leg with fat layer exposed; L89.512 Pressure ulcer of right ankle, stage 2; E11.51 Type 2 diabetes mellitus with diabetic peripheral angiopathy without gangrene; I70.25 Atherosclerosis of native arteries of other extremities with ulceration; I87.2 Venous insufficiency (chronic) (peripheral) | CPT/HCPCS: A9270; G0463 ==

== ENCOUNTER 2021-12-12 08:45 | Day surgery (SDC) | payer MEDICARE ==
[~2021-12-12] VITALS: Ht 167.6 cm; Wt 107.2 kg
--- NOTE | 2021-12-12 09:37 | NUR ---
12/12/21 0937 [place] Lazo CALL LIGHT WITHIN REACH. TETRACAIN IN BOTH EYES AT 0930 AND PLEDGETT AT 0932
== END 2021-12-12 11:36 | disposition home or self-care (01) ==
LOC: ORSCSDS 08:45
PROVIDERS: Ophthalmology
PROC: 08RK3JZ Replacement of Left Lens with Synthetic Substitute, Percutaneous Approach (ICD-10-PCS; principal; 2021-12-12 10:00)
PROC: 08RJ3JZ Replacement of Right Lens with Synthetic Substitute, Percutaneous Approach (ICD-10-PCS; principal; 2021-12-12 10:00)
DX: H25.13 Age-related nuclear cataract, bilateral (principal); I10 Essential (primary) hypertension; E11.9 Type 2 diabetes mellitus without complications; G47.33 Obstructive sleep apnea (adult) (pediatric); J44.9 Chronic obstructive pulmonary disease, unspecified; Z87.891 Personal history of nicotine dependence; I25.2 Old myocardial infarction; F41.8 Other specified anxiety disorders; E66.9 Obesity, unspecified; Z68.38 Body mass index [BMI] 38.0-38.9, adult; Z79.01 Long term (current) use of anticoagulants; Z79.899 Other long term (current) drug therapy; Z86.73 Personal history of transient ischemic attack (TIA), and cerebral infarction without residual deficits
CPT/HCPCS: 82947; J2001; J2250; J3010; J3301; J7040; V2632

== ENCOUNTER 2021-12-25 01:15 | Day surgery (SDC) | payer MEDICARE | END 2021-12-25 23:38 | disposition home or self-care (01) | LOC: WOUND 01:15 | DX: E11.622 Type 2 diabetes mellitus with other skin ulcer (principal); L97.812 Non-pressure chronic ulcer of other part of right lower leg with fat layer exposed; L89.512 Pressure ulcer of right ankle, stage 2; E11.51 Type 2 diabetes mellitus with diabetic peripheral angiopathy without gangrene; I70.25 Atherosclerosis of native arteries of other extremities with ulceration; I87.2 Venous insufficiency (chronic) (peripheral) | CPT/HCPCS: A9270; G0463 ==

== ENCOUNTER 2022-01-08 03:27 | Day surgery (SDC) | payer MEDICARE | END 2022-01-08 22:50 | disposition home or self-care (01) | LOC: WOUND 03:27 | DX: E11.622 Type 2 diabetes mellitus with other skin ulcer (principal); L97.822 Non-pressure chronic ulcer of other part of left lower leg with fat layer exposed; E11.51 Type 2 diabetes mellitus with diabetic peripheral angiopathy without gangrene; I70.25 Atherosclerosis of native arteries of other extremities with ulceration; I87.2 Venous insufficiency (chronic) (peripheral); G47.33 Obstructive sleep apnea (adult) (pediatric); N18.9 Chronic kidney disease, unspecified; E11.22 Type 2 diabetes mellitus with diabetic chronic kidney disease | CPT/HCPCS: G0463 ==

== ENCOUNTER 2022-04-07 01:26 | Day surgery (SDC) | payer MEDICARE ==
[~2022-04-07 01:26] MED LIST changes: +BUMETANIDE2 M6 PO; +MAGNESIUM OXID500 MG PO; +ONDA4ODT MM; +OZEMPIC1 MG/0.72 SC; +OZEMPIC1 MG/0.72 SQ; +TREXALL PO
== END 2022-04-07 23:30 | disposition home or self-care (01) ==
DX: E11.622 Type 2 diabetes mellitus with other skin ulcer (principal); L97.312 Non-pressure chronic ulcer of right ankle with fat layer exposed; E11.51 Type 2 diabetes mellitus with diabetic peripheral angiopathy without gangrene; I70.25 Atherosclerosis of native arteries of other extremities with ulceration; I87.2 Venous insufficiency (chronic) (peripheral); G47.33 Obstructive sleep apnea (adult) (pediatric); Z86.718 Personal history of other venous thrombosis and embolism; G20 Parkinson's disease

== ENCOUNTER → 2022-04-09 | Outpatient (CLI) | payer MEDICARE | END | disposition home or self-care (01) | LOC: LAB SHORT 12:23 | DX: E83.42 Hypomagnesemia (principal) | CPT/HCPCS: 36415; 83735 ==

== ENCOUNTER 2022-04-14 01:11 | Day surgery (SDC) | payer MEDICARE | END 2022-04-14 22:45 | disposition home or self-care (01) | LOC: WOUND 01:11 | DX: E11.622 Type 2 diabetes mellitus with other skin ulcer (principal); L97.312 Non-pressure chronic ulcer of right ankle with fat layer exposed; E11.51 Type 2 diabetes mellitus with diabetic peripheral angiopathy without gangrene; I70.25 Atherosclerosis of native arteries of other extremities with ulceration; I87.2 Venous insufficiency (chronic) (peripheral); G47.33 Obstructive sleep apnea (adult) (pediatric); Z86.718 Personal history of other venous thrombosis and embolism | CPT/HCPCS: A9270 ==

== ENCOUNTER 2022-04-21 01:29 | Day surgery (SDC) | payer MEDICARE | END 2022-04-21 23:01 | disposition home or self-care (01) | LOC: WOUND 01:29 | DX: E11.622 Type 2 diabetes mellitus with other skin ulcer (principal); L97.312 Non-pressure chronic ulcer of right ankle with fat layer exposed; E11.51 Type 2 diabetes mellitus with diabetic peripheral angiopathy without gangrene; I70.25 Atherosclerosis of native arteries of other extremities with ulceration; I87.2 Venous insufficiency (chronic) (peripheral); G47.33 Obstructive sleep apnea (adult) (pediatric) | CPT/HCPCS: A9270 ==

== ENCOUNTER 2022-04-28 01:18 | Day surgery (SDC) | payer MEDICARE | END 2022-04-28 22:47 | disposition home or self-care (01) | LOC: WOUND 01:18 | DX: E11.622 Type 2 diabetes mellitus with other skin ulcer (principal); L97.312 Non-pressure chronic ulcer of right ankle with fat layer exposed; E11.51 Type 2 diabetes mellitus with diabetic peripheral angiopathy without gangrene; I70.25 Atherosclerosis of native arteries of other extremities with ulceration; I87.2 Venous insufficiency (chronic) (peripheral); G47.33 Obstructive sleep apnea (adult) (pediatric); G20 Parkinson's disease | CPT/HCPCS: G0463 ==

== ENCOUNTER 2022-05-26 03:03 | Day surgery (SDC) | payer OTHER ==
[~2022-05-26 03:03] MED LIST changes: +BASAGLAR K100 UNIT/6 SC; +Clindamycin HC300 MG PO; +VISBIOME 112.51 EACH PO
== END 2022-05-26 23:05 | disposition home or self-care (01) ==
LOC: WOUND 03:03
DX: E11.622 Type 2 diabetes mellitus with other skin ulcer (principal); E11.51 Type 2 diabetes mellitus with diabetic peripheral angiopathy without gangrene; I70.25 Atherosclerosis of native arteries of other extremities with ulceration; I87.2 Venous insufficiency (chronic) (peripheral); L97.312 Non-pressure chronic ulcer of right ankle with fat layer exposed

== ENCOUNTER 2022-06-02 01:15 | Day surgery (SDC) | payer OTHER | END 2022-06-02 22:51 | disposition home or self-care (01) | LOC: WOUND 01:15 | DX: E11.622 Type 2 diabetes mellitus with other skin ulcer (principal); I87.2 Venous insufficiency (chronic) (peripheral); L97.312 Non-pressure chronic ulcer of right ankle with fat layer exposed; I70.25 Atherosclerosis of native arteries of other extremities with ulceration | CPT/HCPCS: A9270; G0463 ==

== ENCOUNTER 2022-07-07 00:56 | Day surgery (SDC) | payer OTHER | END 2022-07-07 23:37 | disposition home or self-care (01) | LOC: WOUND 00:56 | DX: E11.622 Type 2 diabetes mellitus with other skin ulcer (principal); L97.312 Non-pressure chronic ulcer of right ankle with fat layer exposed; E11.51 Type 2 diabetes mellitus with diabetic peripheral angiopathy without gangrene; I70.25 Atherosclerosis of native arteries of other extremities with ulceration; I87.2 Venous insufficiency (chronic) (peripheral); N18.9 Chronic kidney disease, unspecified; E11.22 Type 2 diabetes mellitus with diabetic chronic kidney disease; G20 Parkinson's disease ==

== ENCOUNTER 2022-07-28 00:22 | Day surgery (SDC) | payer OTHER | END 2022-07-28 23:10 | disposition home or self-care (01) | LOC: WOUND 00:22 | DX: E11.622 Type 2 diabetes mellitus with other skin ulcer (principal); L97.312 Non-pressure chronic ulcer of right ankle with fat layer exposed; E11.51 Type 2 diabetes mellitus with diabetic peripheral angiopathy without gangrene; I70.25 Atherosclerosis of native arteries of other extremities with ulceration; I87.2 Venous insufficiency (chronic) (peripheral) | CPT/HCPCS: G0463 ==

== ENCOUNTER 2022-08-06 09:25 | Emergency (ER) | payer OTHER, MEDICAID ==
[~2022-08-06] VITALS: Ht 167.6 cm; Wt 106.1 kg
[2022-08-06] MEDS ORDERED: LIDO700A20 TOP (12:56)
== END 2022-08-06 13:29 | disposition home or self-care (01) ==
LOC: ER 09:25
DX: M54.50 Low back pain, unspecified (principal); G89.29 Other chronic pain; G20 Parkinson's disease; Z79.899 Other long term (current) drug therapy; Z79.4 Long term (current) use of insulin; Z79.01 Long term (current) use of anticoagulants; Z87.891 Personal history of nicotine dependence; Z86.73 Personal history of transient ischemic attack (TIA), and cerebral infarction without residual deficits
CPT/HCPCS: 96372; 99283-25; A9270; J1885

== ENCOUNTER 2022-08-13 02:04 | Day surgery (SDC) | payer OTHER | END 2022-08-13 22:58 | disposition home or self-care (01) | LOC: WOUND 02:04 | DX: E11.622 Type 2 diabetes mellitus with other skin ulcer (principal); L97.312 Non-pressure chronic ulcer of right ankle with fat layer exposed; E11.51 Type 2 diabetes mellitus with diabetic peripheral angiopathy without gangrene; I70.25 Atherosclerosis of native arteries of other extremities with ulceration; I87.2 Venous insufficiency (chronic) (peripheral); N18.9 Chronic kidney disease, unspecified; E11.22 Type 2 diabetes mellitus with diabetic chronic kidney disease; G20 Parkinson's disease | CPT/HCPCS: A9270; G0463 ==

== ENCOUNTER 2022-08-18 01:11 | Day surgery (SDC) | payer OTHER | END 2022-08-18 22:44 | disposition home or self-care (01) | LOC: WOUND 01:11 | DX: E11.622 Type 2 diabetes mellitus with other skin ulcer (principal); E11.51 Type 2 diabetes mellitus with diabetic peripheral angiopathy without gangrene; I70.25 Atherosclerosis of native arteries of other extremities with ulceration; I87.2 Venous insufficiency (chronic) (peripheral); L97.312 Non-pressure chronic ulcer of right ankle with fat layer exposed; Z86.73 Personal history of transient ischemic attack (TIA), and cerebral infarction without residual deficits | CPT/HCPCS: A9270 ==

== ENCOUNTER 2022-08-25 00:54 | Day surgery (SDC) | payer OTHER | END 2022-08-25 22:36 | disposition home or self-care (01) | LOC: WOUND 00:54 | DX: E11.622 Type 2 diabetes mellitus with other skin ulcer (principal); I70.25 Atherosclerosis of native arteries of other extremities with ulceration; L97.312 Non-pressure chronic ulcer of right ankle with fat layer exposed; I87.2 Venous insufficiency (chronic) (peripheral) | CPT/HCPCS: A9270 ==

== ENCOUNTER 2022-09-01 00:16 | Day surgery (SDC) | payer OTHER | END 2022-09-01 22:50 | disposition home or self-care (01) | LOC: WOUND 00:16 | DX: E11.622 Type 2 diabetes mellitus with other skin ulcer (principal); L97.312 Non-pressure chronic ulcer of right ankle with fat layer exposed; I70.25 Atherosclerosis of native arteries of other extremities with ulceration; E11.51 Type 2 diabetes mellitus with diabetic peripheral angiopathy without gangrene; I87.2 Venous insufficiency (chronic) (peripheral); G47.33 Obstructive sleep apnea (adult) (pediatric); Z86.718 Personal history of other venous thrombosis and embolism | CPT/HCPCS: A9270 ==